=== PATIENT | male | born 1965 | race African-American/Black ===

== ENCOUNTER 2016-11-02 10:08 | Inpatient (IN) ==
--- NOTE | 2016-11-02 10:19 | Emergency Department Note ---
Disposition Clinical Impression: Stroke, TIA (transient ischemic attack) Disposition: Admitted As Inpatient Condition: Fair Neuro HPI - General Chief Complaint: ED Neuro Symptoms/Deficit Stated Complaint: l side weakness Time Seen by Provider: 11/02/16 10:09 Source: EMS Limitations: no limitations Nursing Notes Reviewed: Yes Vital Signs Reviewed: Yes - History of Present Illness HPI Narrative: Patient is a 51-year-old male with prior history of stroke/TIA with full resolution of deficits in the past. Patient transferred in from [facility]. Past history of hypertension COPD, and glaucoma. Patient states that prior to 45 minutes ago he was sitting down watching TV started Friday with no issues. Patient states he started experiencing heaviness in his left lower extremity followed by heaviness in his left upper extremity. Patient recognizes symptoms from his last stroke and notified staff. Patient is brought into the ED at 1010 hrs., stroke alert was called, patient sent down to CT at 1015 hrs. - Related Data Home Medications: Home Medications Medication Instructions Recorded Confirmed Brimonidine Tartrate [Alphagan P] 1 drop LEFT EYE BID 05/06/15 05/29/15 Folic Acid 2 mg PO QAM 05/06/15 05/29/15 GuaiFENesin Liq [Robitussin Liq] 10 ml PO TID PRN 05/06/15 05/29/15 Latanoprost [Xalatan] 1 drop BOTH EYES HS 05/06/15 05/29/15 Omeprazole [PriLOSEC] 20 mg PO QAM 05/06/15 05/29/15 Prazosin [Minipress] 2 mg PO HS 05/06/15 05/29/15 RisperiDONE [Risperdal] 2 mg PO HS 05/06/15 05/29/15 Thiamine (B-1) [Vitamin B-1] 100 mg PO QAM 05/06/15 05/29/15 Acetaminophen [Tylenol] 650 mg PO Q6HR PRN 05/29/15 05/29/15 Atorvastatin [Lipitor] 10 mg PO HS 05/29/15 05/29/15 Cyclobenzaprine [Flexeril] 10 mg PO HS PRN 05/29/15 05/29/15 Docusate Sodium [Colace] 100 mg PO DAILY 05/29/15 05/29/15 FLUoxetine HCl [Prozac] 40 mg PO DAILY 05/29/15 05/29/15 Previous Rx's Medication Instructions Recorded Clopidogrel [Plavix] 75 mg PO DAILY #60 tablet 05/11/15 Lisinopril [Zestril] 10 mg PO DAILY #30 tablet 05/11/15 Metoprolol [Lopressor] 25 mg PO BID #60 tablet 05/11/15 Rivaroxaban [Xarelto] 20 mg PO DAILY #30 tablet 05/25/15 Allergies/Adverse Reactions: Allergies Allergy/AdvReac Type Severity Reaction Status Date / Time No Known Allergies Allergy Verified 05/06/15 08:01 All systems ED: reviewed and negative except as stated. Constitutional: Reports: weakness. Denies: fever, chills Eyes: Denies: eye pain, vision change ENT ED: Denies: hearing loss, congestion, dysphagia Cardiovascular: Denies: chest pain, palpitations, syncope Respiratory: Denies: cough, dyspnea, wheezes Gastrointestinal: Denies: abdominal pain, nausea, vomiting, diarrhea Genitourinary: Denies: urgency, dysuria, frequency, hematuria Musculoskeletal: Denies: back pain, neck pain, joint swelling, arthralgia, myalgia Integumentary: Denies: rash, abrasion Neurological: Reports: weakness. Denies: headache Psychiatric: Denies: anxiety Endocrine: Denies: fatigue Past Medical History - Past Medical History Attestation: Yes The following information was validated with the patient. Source: patient Medical history: Reports: COPD, glaucoma, hypertension, seizures, TIA Surgical history: Reports: other (He reports he had a shoulder surgery at [facility] on his right shoulder, and some tooth extractions.) Psychiatric history: Reports: depression - Social History Smoking Status: Current some day smoker Smokeless Tobacco Status: No Alcohol use: Reports: heavy Drug use: Reports: none Physical Exam Vital Signs Temperature 98.6 F 11/02/16 10:10 Pulse Rate 78 11/02/16 10:10 Respiratory Rate 18 11/02/16 10:10 Blood Pressure 166/108 11/02/16 10:10 O2 Sat by Pulse Oximetry 96 11/02/16 10:10 Temperature 98.6 F 11/02/16 10:10 Pulse Rate 78 11/02/16 10:10 Respiratory Rate 18 11/02/16 10:10 Blood Pressure 166/108 11/02/16 10:10 O2 Sat by Pulse Oximetry 96 11/02/16 10:10 -General Appearance: Patient is a 51-year-old male who is alert and oriented 3 and a GCS of 15. Patient sitting up comfortable. Patient is nondiaphoretic. Patient has no obvious facial droop. Patient has a full smile -1010hrs:Neurological exam: Brief neuro exam performed. Patient has cranial nerves II through XII grossly intact with NIH score of 24 left sided pronator drift left upper extremity and weakness of the left lower extremity 4/5 compared to 5/5 on the right 1030 hrs.: Neurological exam cranial nerves II through XII intact, no facial droop, even smile, left-sided shoulder elevation slightly weaker at 4/5 compared to right 5/5, left upper extremity same shoulder 4/5 compared to 5/5 on the right. Analysis Consultant strength 4/5 compared to right side 5/5, patient reports equal sensation to palpation on right and left hemispheres his body. Left lower extremity strength 3-4/5 compared to right side 5/5. - Head Head exam: atraumatic, normocephalic, normal inspection - Eye Eye exam: Present: normal appearance, PERRL, EOMI, negative for scleral icterus negative for conjunctival pallor - ENT ENT exam: normal exam, normal oropharynx, mucous membranes moist - Neck Neck exam: Present: normal inspection, full ROM, trachea midline, negative JVD - Chest Chest inspection: Present: Patient has bilateral equal rise and fall of chest wall. Non-tender to palpation. - Respiratory Respiratory exam: Clear to auscultation bilaterally without wheezes rales or rhonchi Cardiovascular Cardiovascular exam: Present: regular rate, normal rhythm, normal heart sounds, without murmurs rubs or gallops. - Abdominal Exam Abdominal exam: Present: soft, nondistended, Non-Tender light and deep palpation in all quadrants. Bowel sounds normoactive throughout all 4 quadrants. Negative for hyper or hyperresonance. - Extremities Exam Extremities exam: Present: normal inspection, full ROM, pulses equal regular at radials, dorsal pedal and PTs - Back Exam Back exam: Present: normal inspection, full ROM. Absent: tenderness, CVA tenderness (R), CVA tenderness (L) - Psychiatric Psychiatric exam: Present: normal affect, normal mood - Skin Skin exam: Present: warm, dry, intact, normal color - General Limitations: no limitations General appearance: alert Course - Reevaluation(s) Reevaluation #1: Patient concerning for CVA, ischemic versus hemorrhagic stroke, stroke alert was called, patient sent and CT head noncontrast. Time: 10:10 Reevaluation #2: On reassessment patient has improved strength in his left upper extremity. Still has mild pronator drift. Left lower extremity still feels heavy and difficult to lift. Patient is able to hold it up for [address] shows: Per radiology IMPRESSION: 2 small areas of decreased spear-white differentiation in the right parietal lobe including in the right motor cortex, new since May 08, 2015, may be related to acute to subacute infarctions. Pansinusitis. Time: 10:30 Reevaluation #3: Patient states no change since last check. Currently having technical difficulties with trying to get the [facility] neurologists on the mobile video. Chest x-ray shows no acute abnormalities. Swallow eval performed at bedside. No deficits. Patient has received aspirin Time: 10:45 Additional Reevaluation(s): Patient states he has a frontal headache. Checking patient's LFTs secondary to history of alcoholism before administering Tylenol. 1221 hrs., patient has no elevations of his liver enzymes. Enzymes are checked because patient has a history of alcoholism. - Consultations Consultation #1: Dr. Sheila Mireles of neurology was evaluating the patient started at 1052 hrs. Assessments complete and the recommendation is to admit for MRI/MRA. No recommendations for TPA at this time secondary to patient's symptoms improving, patient has no pronator drift currently which he had earlier at initial presentation. Time: 11:02 Consultation #2: Dr. Conroy the hospitalist has accepted patient for admission Time: 11:20 Vital Signs Temperature 98.6 F 11/02/16 10:10 Pulse Rate 78 11/02/16 10:10 Respiratory Rate 18 11/02/16 10:10 Blood Pressure 166/108 11/02/16 10:10 O2 Sat by Pulse Oximetry 96 11/02/16 10:10 Temperature 97.7 F 11/02/16 15:16 Pulse Rate 80 11/02/16 15:16 Respiratory Rate 16 11/02/16 15:16 Blood Pressure 136/96 11/02/16 15:16 O2 Sat by Pulse Oximetry 100 11/02/16 15:16 Oxygen Delivery Oxygen Delivery Room Air Neuro Symptoms/Deficit - Medical Records Medical records reviewed: Yes I reviewed the patient's medical records. Prior admission back in 2014 describes history of prior stroke - Lab Data Lab results reviewed: Yes I reviewed the patient's lab results. Lab results narrative: Short CBC 11/02/16 Range/Units 10:20 WBC 5.5 (4.3-11.1) K/mcL Hgb 11.7 L (12.9-16.9) g/dL Hct 37.1 L (37.5-50.1) % Plt Count 490 H (140-400) K/mcL Neutrophils # 4.1 (1.6-8.9) K/mcL BMP 11/02/16 Range/Units 10:20 Sodium 138 (136-145) mEq/L Potassium 3.4 L (3.5-4.5) mEq/L Chloride 99 (98-109) mEq/L Carbon Dioxide 30 H (19-29) mEq/L BUN 6 L (8-26) mg/dL Creatinine 0.92 (0.72-1.25) mg/dL Glucose 77 (70-99) mg/dL Calcium 9.4 (8.6-10.8) mg/dL Cardiac Enzymes 11/02/16 Range/Units 10:20 Troponin I 0.01 (0-0.03) ng/mL Result diagrams: 11/02/16 10:20 11/02/16 10:20 - Radiology Data Radiology results reviewed: Yes I reviewed the patient's radiology results. Head CT 11/02/16 10:10 IMPRESSION: 2 small areas of decreased spear-white differentiation in the right parietal lobe including in the right motor cortex, new since May 08, 2015, may be related to acute to subacute infarctions. Pansinusitis. D/ / Rogerio Flores MD / Rogerio Flores MD Interpreting Provider: Rogerio Flores MD Chest X-Ray 11/02/16 10:15 IMPRESSION: Chronic appearing interstitial lung changes. No acute process. D/ / 11/02/2016 10:45:20 Osmel Kelley MD / [email or web address] Interpreting Provider: Osmel Kelley MD - EKG Data EKG attestation: Yes I reviewed and interpreted this EKG. EKG results narrative: EKG taken 11/02/2016 at 1128 hrs. shows sinus bradycardia at a rate of [address] segment morphology in V2 but is fairly similar to previous EKG taken in 05/06/2015 shows a first-degree AV block NIH Stroke Scale - Level of Consciousness LOC: Alert - LOC Questions LOC Questions: Answers both correctly - LOC Commands LOC Commands: Performs both correctly - Best Gaze Best Gaze: Normal - Visual Visual: No visual loss - Facial Palsy Facial Palsy: Normal - Motor Arms Motor Arm-Left: Drift, does NOT hit bed Motor Arm-Right: No drift for 10 seconds - Motor Legs Motor Leg-Left: Drift, does NOT hit bed Motor Leg-Right: No drift for 5 seconds - Limb Ataxia Limb Ataxia: Normal, No Ataxia - Sensory Sensory: Normal - Best Language Best Language: No aphasia - Dysarthria Dysarthria: Normal - Extinction and Inattention Extinction and Inattention: Normal - NIHSS Total Score NIHSS Total Score: 2 Attestation Statement - Attestation Attestation: I examined this patient and my medical decision-making was reviewed with the ADMINISTRATIVE SERVICES ASSISTANT/PA/Advanced Practice Nurse/Resident Physician. I agree with the documented findings, disposition and treatment plan as described except to the extent set forth below. 51-year-old male since the ED from the [facility] due to left-sided weakness. At 9:30 this morning he had abrupt onset of weakness of his left leg and left arm. No involvement of his face. He has similar presentation 2 years ago at the time of the CVA. He recovered from the previous CVA with no residual weakness. Denies any recent trauma. No palpitations. No history of arrhythmia. Well-appearing male who is awake alert. He has no facial asymmetry. There is slightly asymmetric weakness of his left leg currently left arm is symmetric to the right. No pronator drift. Scattered sensory deficits on the left arm and lateral aspect of the left leg. Face is symmetric. Speech is clear. CT was performed which shows some subacute to acute infarcts on the right parietal lobe. He was driving up a stroke neurologist [facility] do not feel that TPA was warranted. He is bedside swallowing evaluation was unremarkable and he was given aspirin. He states admitted for further workup. The high probability of a clinically significant, sudden or life threatening deterioration of the [NEUROVASCULAR] system(s) required my full and direct attention, intervention and personal management. The aggregate critical care time was [35] minutes. This time is in addition to time spent performing reported procedures but includes the following: [x] Data Review and interpretation [x] Patient assessment and monitoring of vital signs [x] Documentation [x] Medication orders and management
[2016-11-02 10:32] LABS: Basophils % 0.5 %; Eosinophils # 0.1 K/mcL (0.0-0.6); Eosinophils % 2.2 %; Hematocrit 37.1 % (37.5-50.1); Hemoglobin 11.7 g/dL (12.9-16.9); Immature Granulocytes % 0.5 % (0-4); Lymphocytes # 0.8 K/mcL (0.6-4.6); Lymphocytes % 15.2 %; Mean Corpuscular HGB Conc 31.5 g/dL (31.6-35.5); Mean Corpuscular Hemoglobin 26.7 pg (28.0-33.3); Mean Corpuscular Volume 84.5 fL (83.0-100.0); Mean Platelet Volume 8.9 fL (9.4-12.4); Monocytes # 0.5 K/mcL (0.0-1.3); Monocytes % 8.1 %; Neutrophils # 4.1 K/mcL (1.6-8.9); Red Blood Count 4.39 M/mcL (4.19-5.50); Red Cell Distribution Width 20.6 % (11.5-14.5); Segmented Neutrophils % 73.5 %
[2016-11-02 10:34] LABS: Platelet Count 490 K/mcL (140-400)
[2016-11-02 10:38] LABS: INR 1.1; Prothrombin Time 11.6 Seconds (9.4-12.1)
[2016-11-02 10:40] LABS: Activated Partial Thrombo Time 51.3 Seconds (26.0-36.0)
[2016-11-02 10:46] LABS: BUN/Creatinine Ratio 7 (6-26); Blood Urea Nitrogen 6 mg/dL (8-26); Calcium 9.4 mg/dL (8.6-10.8); Carbon Dioxide 30 mEq/L (19-29); Chloride 99 mEq/L (98-109); Glucose 77 mg/dL (70-99); Osmolality,Calculated 282 (280-300); Potassium 3.4 mEq/L (3.5-4.5); Sodium 138 mEq/L (136-145); eGFR For African Americans > 60 (> 60); eGFR For Non-African Americans > 60 (> 60)
--- NOTE | 2016-11-02 10:53 | Emergency Department Note ---
START Narrative - START START: Patient began at 9:30 swelling with abrupt onset of left-sided weakness. This began with this heaviness of his left leg and then evolved into his arm. No involvement of his face. He has CVA 2-3 years ago with similar initial presentation. According to the patient, he completely recovered from the previous event. No recent trauma. No change in medications. No current anticoagulants on his med list medications. Patient cannot give a detailed recollection of his current medications. He has intermittent pronator drift involving his left arm as well as asymmetric weakness of his left leg. He is able to break gravity with the left leg. Sensation is normal bilaterally. No facial asymmetry. 10:37 D/W [facility] stroke neurologist 10:50 Awaiting connection with [facility] neurologist 10:56 Neurologist now online evaluating patient
[2016-11-02] MEDS ORDERED: Acetaminophen 325 MG TABLET PO ONE (11:25)
[2016-11-02] MEDS ORDERED: Aspirin 81 MG TAB.CHEW PO ONE (11:40)
[2016-11-02 11:47] LABS: Alanine Aminotransferase 17 Units/L (0-55); Albumin 3.3 g/dL (3.5-5.0); Albumin/Globulin Ratio 0.7 (1.1-2.2); Alkaline Phosphatase 54 Units/L (38-126); Aspartate Amino Transferase 28 Units/L (5-34); Bilirubin,Direct 0.1 mg/dL (0.0-0.5); Bilirubin,Indirect 0.2 mg/dL (0.0-1.2); Bilirubin,Total 0.3 mg/dL (0.2-1.2); Globulin 4.6 g/dL (2.4-3.5); Total Protein 7.9 g/dL (6.0-8.3)
--- NOTE | 2016-11-02 12:41 | Internal Med History&Physical ---
Date of Encounter: 11/02/16 Time of Encounter: 12:41 Assessment and Plan (1) Seizures Current visit: Yes Status: Acute unclear history may be related to alcohol (2) COPD (chronic obstructive pulmonary disease) Current visit: Yes Status: Chronic no active wheezing Qualifiers: COPD type: emphysema Emphysema type: unspecified Qualified Code(s): J43.9 - Emphysema, unspecified (3) Right hemisphere, cerebral infarction Current visit: Yes Status: Acute similar presentation 2014 [facility] called not a candidate for acute intervention will consult neurology and obtain mri of head cholesterol was ok last admission 2014 (4) Ethanolism Current visit: Yes Status: Chronic receiving rehab treatment says has been clean for 2 months (5) Hypertension Current visit: Yes Status: Chronic uncontrolled and possible contribution to cva/tia will incarese lisinopril dose Qualifiers: Hypertension type: essential hypertension Qualified Code(s): I10 - Essential (primary) hypertension (6) PTSD (post-traumatic stress disorder) Current visit: Yes Status: Chronic chronic (7) Tobacco abuse Current visit: Yes Status: Chronic chronic Internal Medicine - H&P: HPI Chief complaint: left sided weakness and numbness Admitted From: Emergency Dept Plans for Post Hospital Care: Home History of present illness: Mr. Bernal is a 51 year old male Patient with history of alcohol abuse, patient at [facility] for rehabilitation, he said he has been clean from alcoholism for about 2 months, patient also history of COPD, hypertension, admitted here 2014 with a CVA of right hemispheric CVA was seen by the neurology underwent YAKELIN at that time which was no source of cardiac emboli patient presented emergency room from [facility] apparently developed left- sided weakness of the left leg and sensation of leg heaviness and then also right arm involvement to weakness and no headache , no chest pain sent to ER emergency room symptoms beginning to resolve but not completely admitted now for neurologic evaluation. CT of the head was abnormal showing acute. parietal lobe and right motor cortex infarct which is new compared to previous studies are 2015 patient in sinus rhythm Past Med Surg Social Fam HX - Past Medical History Medical history: COPD, glaucoma, hypertension, seizures, TIA Psychiatric history: depression - Past Surgical History Surgical History: other (He reports he had a shoulder surgery at [facility] on his right shoulder, and some tooth extractions.) - Social History Smoking Status: Current some day smoker Smokeless Tobacco Status: No Alcohol use: heavy Drug use: none Internal Medicine - H&P: Meds Brimonidine Tartrate [Alphagan P] 1 drop LEFT EYE BID 05/06/15 [History] Folic Acid 2 mg PO QAM 05/06/15 [History] GuaiFENesin Liq [Robitussin Liq] 10 ml PO TID PRN 05/06/15 [History] Latanoprost [Xalatan] 1 drop BOTH EYES HS 05/06/15 [History] Omeprazole [PriLOSEC] 20 mg PO QAM 05/06/15 [History] Prazosin [Minipress] 2 mg PO HS 05/06/15 [History] RisperiDONE [Risperdal] 2 mg PO HS 05/06/15 [History] Thiamine (B-1) [Vitamin B-1] 100 mg PO QAM 05/06/15 [History] Clopidogrel [Plavix] 75 mg PO DAILY #60 tablet 05/11/15 [Rx] Lisinopril [Zestril] 10 mg PO DAILY #30 tablet 05/11/15 [Rx] Metoprolol [Lopressor] 25 mg PO BID #60 tablet 05/11/15 [Rx] Rivaroxaban [Xarelto] 20 mg PO DAILY #30 tablet 05/25/15 [Rx] Acetaminophen [Tylenol] 650 mg PO Q6HR PRN 05/29/15 [History] Atorvastatin [Lipitor] 10 mg PO HS 05/29/15 [History] Cyclobenzaprine [Flexeril] 10 mg PO HS PRN 05/29/15 [History] Docusate Sodium [Colace] 100 mg PO DAILY 05/29/15 [History] FLUoxetine HCl [Prozac] 40 mg PO DAILY 05/29/15 [History] Allergies No Known Allergies Allergy (Verified 05/06/15 08:01) All Systems PM: A 10-system review of systems was performed and is negative for pertinent findings except as documented above in the HPI. - Constitutional Constitutional: no chills, no fever(s), no night sweats - EENT Eyes: no change in vision, no discharge, no pain, no photophobia Ears: no ear discharge, no ear pain, no tinnitus Nose, mouth and throat: no dysphagia, no nasal discharge, no neck pain, no sore throat - Cardiovascular Cardiovascular ROS IM: no chest pain, no diaphoresis, no dyspnea, no lightheadedness, no palpitations, no syncope - Respiratory Respiratory: no cough, no dyspnea, no wheezing, no excessive phlegm production - Gastrointestinal Gastrointestinal: no abdominal pain, no diarrhea, no hematemesis, no hematochezia, no melena, no nausea, no vomiting - Musculoskeletal Musculoskeletal ROS IM: no numbness, no tingling - Integumentary Integumentary IM: no rash, no unusual bruising - Neurological Neurological ROS: focal weakness, weakness - Hematologic/Lymphatic Hematologic/Lymphatic: no easy bruising - Constitutional Vitals: Temp Pulse Resp BP Pulse Ox 98.6 F 64 18 168/114 100 11/02/16 10:10 11/02/16 11:26 11/02/16 12:01 11/02/16 12:01 11/02/16 11:26 - Head Head exam: Present: atraumatic, normocephalic - Eye Eye exam: Present: PERRL, conjuntiva pink, sclera anicteric Pupils: Present: PERRL - Neck Neck exam general surgery: Present: supple, trachea midline. Absent: lymphadenopathy - Respiratory Respiratory exam: Present: CTAB. Absent: accessory muscle use, rales, rhonchi, wheezes - Cardiovascular Cardiovascular exam: Present: RRR, +S1, +S2. Absent: diastolic murmur, gallop, rubs, systolic murmur - GI/Abdominal GI/Abdominal exam: Present: normal bowel sounds, soft, no peritoneal signs. Absent: distended, tenderness - Extremities Exam Extremities exam: Present: warm, radial pulses palpable and symetrical. Absent : calf tenderness, cyanotic, pedal edema - Neurological Exam Neurological exam: Present: motor sensory deficit Internal Med - H&P Results - Labs CBC & Chem 7: 11/02/16 10:20 11/02/16 10:20
[2016-11-02] MEDS ORDERED: Naloxone 0.4 MG/ML INJ IVP PRN (12:59)
[2016-11-02] MEDS ORDERED: *HR* Morphine 2 MG/ML SYRINGE IVP PRN (12:59)
[2016-11-02] MEDS ORDERED: MOM Conc 10 ML UD.LIQ PO PRN (12:59)
[2016-11-02] MEDS ORDERED: Acetaminophen 325 MG TABLET PO PRN (13:03)
--- NOTE | 2016-11-02 17:14 | Neurology - Consult Note ---
Date of Encounter: 11/02/16 Time of Encounter: 17:09 Assessment and Plan (1) TIA (transient ischemic attack) Current Visit: Yes Status: Acute Patient with PMH significant for HTN, previous CVA who developed left sided paresthesia and weakness lasting few hours in duration with rapid resolution. MRI of brain reviewed and showed no acute intracranial abnormality and no evidence of new stroke. Clinical diagnosis would be TIA. Patient has had YAKELIN in the past when he developed stroke 3 years ago which was negative. CTA of head shows normal study therefore i would simply repeat carotid artery duplex. He is already on Xarelto, plavix and aspirin triple therapy and not much to add for the treatment of TIA. He is back to baseline and PT does not appear necessary. Continue statin therapy for hyperlipidemia. Will order carotid artery duplex. if returns negative. Patient can be discharged and follow up with PCP at [place] [facility]. Thank you very much for the consultation Qualifiers: Transient cerebral ischemia type: unspecified Qualified Code(s): G45.9 - Transient cerebral ischemic attack, unspecified History of Present Illness Chief complaint: left sided paresthesia HPI: Mr. 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 seizure disorder, COPD, On xarelto (? indication) who developed transient left sided paresthesia weakness, which rapidly improved. Symptoms occurred at around 1O am and the patient was initially evaluated in the ER and CT of head was negative acute infarct. patient was evaluated by stroke telemedicine team at [facility] who recommended no tPA since symptoms were rapidly improving. Patient admitted onto medical floor for further testing. Had cerebral infarct durin 04/2015 and MRI of brain at the time showed "few foci of acute infarction in the right parietal, occipital, and posterior temporal lobes. This is in the vascular territory of the right posterior cerebral artery'. Eventually neurological symptoms all resolved. By the time he came back from testing, he tells me that since the last 3 months he has been feeling on and off, left sided numbness, without weakness. At this time, he is 100% back to normal. MRI of brain without contrast showed no acute changes. CT/CT angio head wo/w con IMPRESSION: Unremarkable CTA of the head. patient already taking xarelto, plavix and aspirin. He does not know why he is taking zarelto. [facility] and no [facility] available for review her at [facility]. Past Med Surg Social Fam HX - Past Medical History Medical history: COPD, glaucoma, hypertension, seizures, TIA Psychiatric history: depression - Past Surgical History Surgical History: other - Social History Smoking Status: Current some day smoker Smokeless Tobacco Status: No Alcohol use: heavy Drug use: none Medications and Allergies Brimonidine Tartrate [Alphagan P] 1 drop LEFT EYE BID 05/06/15 [History] Latanoprost [Xalatan] 1 drop BOTH EYES HS 05/06/15 [History] Acetaminophen [Tylenol] 650 mg PO BID PRN 05/29/15 [History] Docusate Sodium [Colace] 200 mg PO BID 05/29/15 [History] FLUoxetine HCl [Prozac] 20 mg PO DAILY 05/29/15 [History] Albuterol Sulfate [Proair Hfa] 2 puff IH QID PRN 11/02/16 [History] Aspirin [Lo-Dose Aspirin EC] 81 mg PO DAILY 11/02/16 [History] Calcium Carbonate/Vitamin D3 [Calcium 600 + Vit D Tablet] 1 tab PO BID 11/02/16 [History] Ferrous Sulfate [Iron] 325 mg PO BID 11/02/16 [History] Fluticasone Propionate Nasal [Flonase] 100 mcg NS HS 11/02/16 [History] Loratadine [Allergy Relief] 10 mg PO DAILY 11/02/16 [History] Melatonin/Pyridoxine HCl (B6) [Melatonin 1 mg Tablet] 12 mg PO HS 11/02/16 [ History] Naproxen [EC-Naprosyn] 500 mg PO BID 11/02/16 [History] Polyvinyl Alcohol/Povidone/Pf [Refresh Classic Eye Drops] 1 drop OP QID PRN [History] PredniSONE 10 mg PO DAILY 11/02/16 [History] Pseudoephedrine [Sudafed] 60 mg PO BID 11/02/16 [History] RisperiDONE [Risperdal] 0.5 mg PO BID 11/02/16 [History] Trazodone HCl 50 mg PO HS 11/02/16 [History] Allergies No Known Allergies Allergy (Verified 05/06/15 08:01) All Systems: A 10-system review of systems was performed and is negative for pertinent findings except as documented above in the HPI. Physical Examination - Vital Signs Vital Signs: Initial Vital Signs Temp Pulse Resp BP Pulse Ox 98.6 F 78 18 166/108 96 11/02/16 10:10 11/02/16 10:10 11/02/16 10:10 11/02/16 10:10 11/02/16 10:10 - Constitutional General appearance: comfortable - Neurologic Sensorimotor examination: intact Detailed motor examination: grossly full strength in all extremities Motor examination - right side: 5/5: deltoids, biceps, triceps, wrist flexion, wrist extension, fruit sprayer, hip flexors, tibialis Anterior, quadriceps, toe extension (EHL), plantarflexion Motor examination - left side: 5/5: deltoids, biceps, triceps, wrist flexion, wrist extension, hip flexors, fruit sprayer, quadriceps, tibialis Anterior, toe extension (EHL), plantarflexion Detailed sensory examination: intact Reflex and gait examination: intact Reflexes: Biceps: 1+, Triceps: 1+, Brachioradialis: 1+, Patella: 1+, Achilles: 1 + Mental Status Examination: awake, alert, oriented to person, oriented to place, oriented to time, follows commands appropriately, answers questions appropriately, no agnosia, no aphasia, no aproxia Cranial nerve examination: PERRL, EOMI, visual marc intact, corneal reflexes brisk symmetrically, sensory to face intact, mastication intact, no facial asymmetry is present, no dysarthria, hearing is intact symmetrically, soft palate elevates bilaterally upon phonation, gag reflex intact, flexes SCM and trapezius muscles symmetrically with full power, tongue protrudes midline, no atrophy or facial fasiculations present Cerebellar examination: no dysmetria, performs finger to nose and heel to healy symmetrically without ataxia, no gait ataxia, no truncal ataxia, no difficulty with rapid alternating movements Results - Laboratory Findings CBC and BMP: 11/02/16 10:20 11/02/16 10:20 Abnormal lab findings: Abnormal lab results Hgb 11.7 g/dL (12.9-16.9) L 11/02/16 10:20 Hct 37.1 % (37.5-50.1) L 11/02/16 10:20 MCH 26.7 pg (28.0-33.3) L 11/02/16 10:20 MCHC 31.5 g/dL (31.6-35.5) L 11/02/16 10:20 RDW 20.6 % (11.5-14.5) H 11/02/16 10:20 Plt Count 490 K/mcL (140-400) H 11/02/16 10:20 MPV 8.9 fL (9.4-12.4) L 11/02/16 10:20 APTT 51.3 Seconds (26.0-36.0) H 11/02/16 10:20 Potassium 3.4 mEq/L (3.5-4.5) L 11/02/16 10:20 Carbon Dioxide 30 mEq/L (19-29) H 11/02/16 10:20 BUN 6 mg/dL (8-26) L 11/02/16 10:20 POC Glucose 54 (58-89) L 11/02/16 12:42 Albumin 3.3 g/dL (3.5-5.0) L 11/02/16 10:20 Globulin 4.6 g/dL (2.4-3.5) H 11/02/16 10:20 Albumin/Globulin Ratio 0.7 (1.1-2.2) L 11/02/16 10:20 Consult Discharge Plan - Plan [facility]errals: [facility] [Primary Care Provider] -
[2016-11-02] MEDS: Latanoprost 2.5 ML BOTTLE BOTH EYES SCH (20:09)
[2016-11-03 05:23] LABS: Basophils # 0.1 K/mcL (0.0-0.2); Basophils % 0.9 %; Eosinophils # 0.4 K/mcL (0.0-0.6); Eosinophils % 7.7 %; Hematocrit 32.3 % (37.5-50.1); Hemoglobin 10.3 g/dL (12.9-16.9); Immature Granulocytes % 0.5 % (0-4); Lymphocytes # 1.6 K/mcL (0.6-4.6); Lymphocytes % 28.9 %; Mean Corpuscular HGB Conc 31.9 g/dL (31.6-35.5); Mean Corpuscular Hemoglobin 26.3 pg (28.0-33.3); Mean Corpuscular Volume 82.6 fL (83.0-100.0); Mean Platelet Volume 8.9 fL (9.4-12.4); Monocytes # 0.6 K/mcL (0.0-1.3); Platelet Count 430 K/mcL (140-400); Red Blood Count 3.91 M/mcL (4.19-5.50); Red Cell Distribution Width 20.5 % (11.5-14.5)
[2016-11-03 05:25] LABS: Neutrophils # 2.9 K/mcL (1.6-8.9)
[2016-11-03 05:40] LABS: Alanine Aminotransferase 11 Units/L (0-55); Albumin/Globulin Ratio 0.7 (1.1-2.2); Alkaline Phosphatase 44 Units/L (38-126); Aspartate Amino Transferase 19 Units/L (5-34); BUN/Creatinine Ratio 11 (6-26); Bilirubin,Total 0.2 mg/dL (0.2-1.2); Blood Urea Nitrogen 10 mg/dL (8-26); Calcium 8.7 mg/dL (8.6-10.8); Carbon Dioxide 28 mEq/L (19-29); Chloride 105 mEq/L (98-109); Chol/HDL Ratio 2.8 (0-4.9); Cholesterol 150 mg/dL (< 200); Globulin 3.8 g/dL (2.4-3.5); Glucose 76 mg/dL (70-99); HDL Cholesterol 54 mg/dL (40-59); LDL Cholesterol,Calculated 84 mg/dL (0-99); Magnesium 1.7 mg/dL (1.6-2.6); Osmolality,Calculated 290 (280-300); Potassium 3.2 mEq/L (3.5-4.5); Sodium 141 mEq/L (136-145); Triglycerides 60 mg/dL (< 150); eGFR For African Americans > 60 (> 60); eGFR For Non-African Americans > 60 (> 60)
[2016-11-03 05:41] LABS: Albumin 2.5 g/dL (3.5-5.0); Total Protein 6.3 g/dL (6.0-8.3)
[2016-11-03] MEDS ORDERED: *HR* Enoxaparin 40 MG/0.4 ML SYRINGE SQ SCH (06:00)
[2016-11-03 06:10] LABS: Anisocytosis 1+ (Not Present); Hypochromasia Present (Not Present); Microcytosis Present (Not Present); Platelet Estimate Increased (Normal)
[2016-11-03] MEDS: *HR* Rivaroxaban 10 MG TABLET PO SCH (09:20)
[2016-11-03] MEDS: FLUoxetine 20 MG CAPSULE PO SCH (09:20)
[2016-11-03] MEDS: Folic Acid 1 MG TABLET PO SCH (09:20)
[2016-11-03] MEDS: Thiamine (B-1) 100 MG TABLET PO SCH (09:21)
--- NOTE | 2016-11-03 15:46 | ECHO - Doppler Report ---
Echocardiogram Name: Hossein Bernal Date of Study: 11/03/2016 Date: 1965 Ht: 74.0 in Medical Record#: [id number] Age: 51 Wt: 183.0 lb Gender: Male BSA: 2.09 Order #: [id number] Location: [facility] Room #: 2NE32 Reading Physician: Portillo Pandya MD, [facility] Branch Lending Officer: Gisselle Whaley Ordering Physician: Reji Fernando MD Primary Physician: [facility] Indications: CVA Impressions: Normal LV systolic function, LVEF 60%. Moderate left ventricular diastolic dysfunction. Normal right ventricular size and function. Moderately dilated left atrium. No significant valvular dysfunction. Unable to estimate RVSP due to lack of TR jet. Left Ventricular Wall Motion: Rest Echo Findings All wall segments showed normal motion. Findings: Study Quality * Technically adequate exam. ECG Findings * Normal sinus rhythm. Left Ventricle * Normal LV systolic function, LVEF 60%. * Normal LV chamber size and wall thickness. * Moderate left ventricular diastolic dysfunction. Right Ventricle * Normal right ventricular size and function. Left Atrium * Moderately dilated left atrium. Right Atrium * Normal right atrial size. Aorta * Normally sized aortic root. Pericardium * There is no pericardial effusion present. IVC * The IVC is not well evaluated. Aortic Valve * Trileaflet aortic valve. * No aortic stenosis. * No aortic regurgitation. Mitral Valve * Normal mitral valve structure. * No mitral stenosis. * Trace mitral regurgitation. Tricuspid Valve * Normal tricuspid valve structure. * No tricuspid stenosis. * Trace tricuspid regurgitation. * Unable to estimate RVSP due to lack of TR jet. Pulmonic Valve * Pulmonic valve not well visualized. * No pulmonic stenosis. * No pulmonic regurgitation. History Hypertension History of Smoking Years 4 Packs 0.5 05/08/2015 a Previous Echo was performed. Measurements: BP: 123/ 76 2D Normal Values RVIDd: 3.00 cm IVSd: 1.00 cm 0.6 - 1.0 cm LVIDd: 4.70 cm 3.7 - 5.6 cm LVPWd: 1.00 cm 0.6 - 1.1 cm LVIDs: 3.20 cm 1.5 - 3.6 cm AO: 2.90 cm < 4.0 cm LA volume: 80 Mitral Valve Peak E:.78 m/sec Peak A:.65 m/sec E/A Ratio:1.2 Peak E' Lat Ronald:9.26 cm/s Peak E' Med Ronald:5.65 cm/s E/E' Lat Ratio:8.4 E/E' Med Ratio:13.7 Updated by Portillo Pandya MD, [facility] on 11/03/2016 3:41:03 PM electronically signed on 11/03/2016 3:41:43 PM with status of Final Wall Motion Ruiz: 1=Normal, 2=Hypokinesis, 3=Akinesis, 4=Dyskinesis, 5=Aneurysmal, 6=Hyperkinetic, X=Not Visualized (Blank)=Missing
--- NOTE | 2016-11-03 16:52 | Internal Med Progress Note ---
Date of Encounter: 11/03/16 Time of Encounter: 16:50 - Assessment and plan (1) TIA (transient ischemic attack) Current Visit: Yes Status: Acute Assessment and plan: Admitted with symptoms of TIA. Extensive investigations were done. No positive outcome. Patient is on appropriate anticoagulation. Plan: Will continue same treatment. Neurology on the board and we will follow the recommendation Qualifiers: Transient cerebral ischemia type: unspecified Qualified Code(s): G45.9 - Transient cerebral ischemic attack, unspecified (2) COPD (chronic obstructive pulmonary disease) Current Visit: Yes Status: Chronic Assessment and plan: Patient is known to have a chronic obstructive pulmonary disease. At this point his COPD is stable. We will continue the same medication. Qualifiers: COPD type: emphysema Emphysema type: unspecified Qualified Code(s): J43.9 - Emphysema, unspecified (3) Hypertension Current Visit: Yes Status: Chronic Assessment and plan: Blood pressure is essentially within normal limit. We will continue same treatment Qualifiers: Hypertension type: essential hypertension Qualified Code(s): I10 - Essential (primary) hypertension (4) Tobacco abuse Current Visit: Yes Status: Chronic Assessment and plan: Discussed at length regarding discontinuation of tobacco. Patient promises that he will discontinue tobacco usage - Subjective Interval history: Patient seen and examined. Chart reviewed. Patient denies any chest pain, shortness of breath, weakness, abdominal pain or diarrhea. - Constitutional Vitals: Temp Pulse Resp BP Pulse Ox 98.1 F 69 18 138/111 94 11/03/16 15:45 11/03/16 15:45 11/03/16 15:45 11/03/16 15:45 11/03/16 15:45 General appearance: Present: A&O X 3, pleasant, no acute distress, answers questions appropriately - Head Head exam: Present: atraumatic, normocephalic - Eye Eye exam: Present: PERRL, conjuntiva pink, sclera anicteric Pupils: Present: PERRL - Neck Neck exam general surgery: Present: supple, trachea midline. Absent: lymphadenopathy - Respiratory Respiratory exam: Present: CTAB. Absent: accessory muscle use, rales, rhonchi, wheezes - Cardiovascular Cardiovascular exam: Present: RRR, +S1, +S2. Absent: diastolic murmur, gallop, rubs, systolic murmur - GI/Abdominal GI/Abdominal exam: Present: normal bowel sounds, soft, no peritoneal signs. Absent: distended, tenderness - Extremities Exam Extremities exam: Present: warm, radial pulses palpable and symetrical. Absent : calf tenderness, cyanotic, pedal edema - Neurological Exam Neurological exam: Present: CN II-XII intact, oriented X3, no focal deficits. Absent: pronater drift, facial droop, speech deficit - Skin Skin exam: Present: dry, intact Internal Medicine: Result - Labs CBC & Chem 7: 11/03/16 05:11 11/03/16 05:11 Labs: Short CBC 11/03/16 Range/Units 05:11 WBC 5.6 (4.3-11.1) K/mcL Hgb 10.3 L (12.9-16.9) g/dL Hct 32.3 L (37.5-50.1) % Plt Count 430 H (140-400) K/mcL Neutrophils # 2.9 (1.6-8.9) K/mcL BMP 11/03/16 05:11 Sodium 141 Potassium 3.2 L Chloride 105 Carbon Dioxide 28 BUN 10 Creatinine 0.94 Glucose 76 Calcium 8.7 Cardiac Enzymes 11/02/16 11/02/16 11/03/16 Range/Units 17:37 22:07 05:11 Troponin I 0.00 0.00 0.01 (0-0.03) ng/mL Liver Function 11/03/16 Range/Units 05:11 Total Bilirubin 0.2 (0.2-1.2) mg/dL AST 19 (5-34) Units/L ALT 11 (0-55) Units/L Alkaline Phosphatase 44 (38-126) Units/L Albumin 2.5 L D (3.5-5.0) g/dL - ABG Interpretation ABG results: PT/INR, D-dimer PT 11.6 Seconds (9.4-12.1) 11/02/16 10:20 - Impressions Impressions Brain MRI 11/02/16 13:05 IMPRESSION: No acute infarct. D/ / Basim Zhou MD / Basim Zhou MD Interpreting Provider: Basim Zhou MD Consult Discharge Plan - Plan [facility]errals: [facility] [Primary Care Provider] -
--- NOTE | 2016-11-03 17:52 | Electrocardiograph Report ---
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
[2016-11-03] MEDS: Latanoprost 2.5 ML BOTTLE BOTH EYES SCH (21:56)
[2016-11-04 07:48] VITALS: BP 139/79
[2016-11-04] MEDS: Folic Acid 1 MG TABLET PO SCH (09:12)
[2016-11-04] MEDS: FLUoxetine 20 MG CAPSULE PO SCH (09:13)
[2016-11-04] MEDS: Thiamine (B-1) 100 MG TABLET PO SCH (09:13)
[2016-11-04] MEDS: *HR* Rivaroxaban 10 MG TABLET PO SCH (09:13)
--- NOTE | 2016-11-04 10:11 | Discharge Summary ---
Date of Encounter: 11/04/16 Time of Encounter: 09:57 - Discharge Diagnosis (1) TIA (transient ischemic attack) Priority: Primary Status: Acute Qualifiers: Transient cerebral ischemia type: unspecified Qualified Code(s): G45.9 - Transient cerebral ischemic attack, unspecified (2) COPD (chronic obstructive pulmonary disease) Priority: Secondary Status: Chronic Qualifiers: COPD type: emphysema Emphysema type: unspecified Qualified Code(s): J43.9 - Emphysema, unspecified (3) Hypertension Priority: Secondary Status: Chronic Qualifiers: Hypertension type: essential hypertension Qualified Code(s): I10 - Essential (primary) hypertension (4) Tobacco abuse Priority: Secondary Status: Chronic - Discharge Medications Prescriptions: Atorvastatin [Lipitor] 10 mg PO HS #30 tablet Clopidogrel [Plavix] 75 mg PO DAILY #30 tablet Lisinopril [Zestril] 20 mg PO DAILY #30 tablet Metoprolol [Lopressor] 25 mg PO BID #30 tablet Prazosin [Minipress] 2 mg PO HS #30 capsule Rivaroxaban [Xarelto] 20 mg PO DAILY #30 tablet Thiamine (B-1) [Vitamin B-1] 100 mg PO QAM #30 tablet Home Medications: Brimonidine Tartrate [Alphagan P] 1 drop LEFT EYE BID 05/06/15 [History] Latanoprost [Xalatan] 1 drop BOTH EYES HS 05/06/15 [History] Acetaminophen [Tylenol] 650 mg PO BID PRN 05/29/15 [History] Docusate Sodium [Colace] 200 mg PO BID 05/29/15 [History] FLUoxetine HCl [Prozac] 20 mg PO DAILY 05/29/15 [History] Albuterol Sulfate [Proair Hfa] 2 puff IH QID PRN 11/02/16 [History] Aspirin [Lo-Dose Aspirin EC] 81 mg PO DAILY 11/02/16 [History] Calcium Carbonate/Vitamin D3 [Calcium 600 + Vit D Tablet] 1 tab PO BID 11/02/16 [History] Ferrous Sulfate [Iron] 325 mg PO BID 11/02/16 [History] Fluticasone Propionate Nasal [Flonase] 100 mcg NS HS 11/02/16 [History] Loratadine [Allergy Relief] 10 mg PO DAILY 11/02/16 [History] Melatonin/Pyridoxine HCl (B6) [Melatonin 1 mg Tablet] 12 mg PO HS 11/02/16 [ History] Naproxen [EC-Naprosyn] 500 mg PO BID 11/02/16 [History] Polyvinyl Alcohol/Povidone/Pf [Refresh Classic Eye Drops] 1 drop OP QID PRN [History] PredniSONE 10 mg PO DAILY 11/02/16 [History] Pseudoephedrine [Sudafed] 60 mg PO BID 11/02/16 [History] RisperiDONE [Risperdal] 0.5 mg PO BID 11/02/16 [History] Trazodone HCl 50 mg PO HS 11/02/16 [History] Atorvastatin [Lipitor] 10 mg PO HS #30 tablet 11/04/16 [Rx] Clopidogrel [Plavix] 75 mg PO DAILY #30 tablet 11/04/16 [Rx] Lisinopril [Zestril] 20 mg PO DAILY #30 tablet 11/04/16 [Rx] Metoprolol [Lopressor] 25 mg PO BID #30 tablet 11/04/16 [Rx] Prazosin [Minipress] 2 mg PO HS #30 capsule 11/04/16 [Rx] Rivaroxaban [Xarelto] 20 mg PO DAILY #30 tablet 11/04/16 [Rx] Thiamine (B-1) [Vitamin B-1] 100 mg PO QAM #30 tablet 11/04/16 [Rx] Allergies/Adverse Reactions: Allergies No Known Allergies Allergy (Verified 05/06/15 08:01) Procedures/tests Complete & Pending: Procedures Performed prior 72 hours Category Date Time Status CT angio head wo/w con [CT] Routine Cat Scan 11/02/16 13:06 Completed MR head/brain wo con [MR] Routine MRI 11/02/16 13:05 Completed EV echocardiogram Routine Y 11/03/16 13:07 Completed Date of admission: 11/02/16 12:59 [facility] care physician[facility] Consults: 11/04/16 09:13 Consult to Health And Social Care Teacher [CONS] Routine Reason for SW Consult: PT/OT rec swing bed Discharging clinician: Alfredo Delgado - Patient Status Disposition: Transfer Inpatient Rehab Fac Condition: Fair Functional capacity at discharge: uses cane/walker Overall status at discharge: patient is progressing back to baseline - Discharge Instructions Follow Up With: [facility] [Primary Care Provider[facility] - Shari Ibarra MD [Partnered Physician] - - Diet and Activity Activity: as per physical therapy, increase activity as tolerated Diet: low fat, low cholesterol, low salt diet Interval History: Patient with history of alcohol abuse, patient at [place] [facility] for rehabilitation, he said he has been clean from alcoholism for about 2 months, patient also history of COPD, hypertension, admitted here 2014 with a CVA of right hemispheric CVA was seen by the neurology underwent YAKELIN at that time which was no source of cardiac emboli patient presented emergency room from [place] [facility] apparently developed left- sided weakness of the left leg and sensation of leg heaviness and then also right arm involvement to weakness and no headache , no chest pain sent to ER emergency room symptoms beginning to resolve but not completely admitted now for neurologic evaluation. CT of the head was abnormal showing acute. parietal lobe and right motor cortex infarct which is new compared to previous studies are 2015 patient in sinus rhythm Hospital course: Patient was hospitalized. He was evaluated by neurology. Extensive workup/ investigations were done. There were no evidence of any stroke/TIA. Plan Patient can go back to the inpatient rehabilitation in [place]. Informed medical social worker about. Patient will go home on aspirin/statin. Patient is taking Plavix/Xarelto as his home medication. We will resume all his home medication. Even though I am giving scripts the patient for following medication, these were his home medications. Lipitor, Plavix, lisinopril, metoprolol,Xarelto, thiamine and prazosin. Ultrasound carotid was done. At the time of discharge the report is still pending. Patient can follow up with his primary care provider who can address this issue as outpatient. We will appointment with neurology for follow-up The time of discharge all questions answered. Patient does not have any questions, concerns, update or recommendations - Time Spent with Patient Total time spent providing and/or coordinating discharge services: - Constitutional Vitals: Temp Pulse Resp BP Pulse Ox 98.1 F 71 17 139/79 97 11/04/16 07:00 11/04/16 07:00 11/04/16 07:00 11/04/16 07:00 11/04/16 07:00 General appearance: Present: A&O X 3, pleasant, no acute distress, answers questions appropriately - Head Head exam: Present: atraumatic, normocephalic - Eye Eye exam: Present: PERRL, conjuntiva pink, sclera anicteric Pupils: Present: PERRL - Neck Neck exam general surgery: Present: supple, trachea midline. Absent: lymphadenopathy - Respiratory Respiratory exam: Present: CTAB. Absent: accessory muscle use, rales, rhonchi, wheezes - Cardiovascular Cardiovascular exam: Present: RRR, +S1, +S2. Absent: diastolic murmur, gallop, rubs, systolic murmur - GI/Abdominal GI/Abdominal exam: Present: normal bowel sounds, soft, no peritoneal signs. Absent: distended, tenderness - Extremities Exam Extremities exam: Present: warm, radial pulses palpable and symetrical. Absent : calf tenderness, cyanotic, pedal edema - Neurological Exam Neurological exam: Present: CN II-XII intact, oriented X3, no focal deficits. Absent: pronater drift, facial droop, speech deficit - Skin Skin exam: Present: dry, intact
--- NOTE | 2016-11-04 10:24 | Physician Discharge Referral ---
[facility] Referral Info Transfer To: Inpatient rehab - Diagnosis (1) TIA (transient ischemic attack) Priority: Primary Status: Acute (2) COPD (chronic obstructive pulmonary disease) Priority: Secondary Status: Chronic (3) Hypertension Priority: Secondary Status: Chronic (4) Tobacco abuse Priority: Secondary Status: Chronic - Transfer Medications Prescriptions: Atorvastatin [Lipitor] 10 mg PO HS #30 tablet Clopidogrel [Plavix] 75 mg PO DAILY #30 tablet Lisinopril [Zestril] 20 mg PO DAILY #30 tablet Metoprolol [Lopressor] 25 mg PO BID #30 tablet Prazosin [Minipress] 2 mg PO HS #30 capsule Rivaroxaban [Xarelto] 20 mg PO DAILY #30 tablet Thiamine (B-1) [Vitamin B-1] 100 mg PO QAM #30 tablet Home Medications: Brimonidine Tartrate [Alphagan P] 1 drop LEFT EYE BID 05/06/15 [History] Latanoprost [Xalatan] 1 drop BOTH EYES HS 05/06/15 [History] Acetaminophen [Tylenol] 650 mg PO BID PRN 05/29/15 [History] Docusate Sodium [Colace] 200 mg PO BID 05/29/15 [History] FLUoxetine HCl [Prozac] 20 mg PO DAILY 05/29/15 [History] Albuterol Sulfate [Proair Hfa] 2 puff IH QID PRN 11/02/16 [History] Aspirin [Lo-Dose Aspirin EC] 81 mg PO DAILY 11/02/16 [History] Calcium Carbonate/Vitamin D3 [Calcium 600 + Vit D Tablet] 1 tab PO BID 11/02/16 [History] Ferrous Sulfate [Iron] 325 mg PO BID 11/02/16 [History] Fluticasone Propionate Nasal [Flonase] 100 mcg NS HS 11/02/16 [History] Loratadine [Allergy Relief] 10 mg PO DAILY 11/02/16 [History] Melatonin/Pyridoxine HCl (B6) [Melatonin 1 mg Tablet] 12 mg PO HS 11/02/16 [ History] Naproxen [EC-Naprosyn] 500 mg PO BID 11/02/16 [History] Polyvinyl Alcohol/Povidone/Pf [Refresh Classic Eye Drops] 1 drop OP QID PRN [History] PredniSONE 10 mg PO DAILY 11/02/16 [History] Pseudoephedrine [Sudafed] 60 mg PO BID 11/02/16 [History] RisperiDONE [Risperdal] 0.5 mg PO BID 11/02/16 [History] Trazodone HCl 50 mg PO HS 11/02/16 [History] Atorvastatin [Lipitor] 10 mg PO HS #30 tablet 11/04/16 [Rx] Clopidogrel [Plavix] 75 mg PO DAILY #30 tablet 11/04/16 [Rx] Lisinopril [Zestril] 20 mg PO DAILY #30 tablet 11/04/16 [Rx] Metoprolol [Lopressor] 25 mg PO BID #30 tablet 11/04/16 [Rx] Prazosin [Minipress] 2 mg PO HS #30 capsule 11/04/16 [Rx] Rivaroxaban [Xarelto] 20 mg PO DAILY #30 tablet 11/04/16 [Rx] Thiamine (B-1) [Vitamin B-1] 100 mg PO QAM #30 tablet 11/04/16 [Rx] Allergies/Adverse Reactions: Allergies No Known Allergies Allergy (Verified 05/06/15 08:01) - Respiratory Orders Smoking Cessation: Smoking cessation has been advised. For more information, call the [place] Tobacco Quit Line at 5-962-YENV-NOW. - Rehabiliation Orders Rehab Orders: ROM Exercises, Evaluation for Physical Therapy, Evaluation for Occupational Therapy CERTIFICATION: I certify that the transfer of the above named patient to an Extended Care Facility is necessary for the continuing treatment of the diagnosis listed. The above information is true and accurate reflection of patient's current condition. Confidential - Redisclosure prohibited without a patient's written consent.
== END 2016-11-04 12:30 | DRG 69 ==
LOC: EMEROO 10:08 → 2NENU 10:08
PROVIDERS: ADMIT Internal Medicine; ATTEND Internal Medicine

== ENCOUNTER 2017-01-17 18:07 | Inpatient (IN) ==
--- NOTE | 2017-01-17 18:38 | Emergency Department Note ---
START Narrative - START START: I dr simon examined this patient and my medical decision-making was reviewed with the CHRISTIAN COUNSELOR/PA/Advanced Practice Nurse/Resident Physician. I agree with the documented findings, disposition and treatment plan as described except to the extent set forth below. 51 yo M here for suicidal thoughts but no active plan. hx of depression. hospitalized in september for psych. admits to etoh. denies other drugs labs and 1A eval.
--- NOTE | 2017-01-17 18:39 | Emergency Department Note ---
Disposition Clinical Impression: Suicidal ideation Disposition: Still a Patient Referrals: NO,PCP [Primary Care Provider] - Forms: ED Satisfaction Letter Psych HPI - General Chief Complaint: ED Psychiatric Symptoms Stated Complaint: SI Time Seen by Provider: 01/17/17 18:10 Source: EMS Limitations: no limitations Nursing Notes Reviewed: Yes Vital Signs Reviewed: Yes - History of Present Illness HPI Narrative: 51-year-old male presenting to the emergency department with suicidal ideation. He states for the past 3 days he has not been taking his regular medications for his PTSD and depression. He states he has felt that he does not want to take the medications anymore. He did not have a specific plan for any suicide attempt. He is not having any homicidal ideation. He states he does not use any drugs but drinks a sixpack of beer every single day. He discloses a history of only hypertension. He was previously hospitalized in September for similar psychiatric complaints. He is not currently in no pain and has no medical concerns at this moment Pt complaint: suicidal ideation, feels depressed - Related Data Home Medications Medication Instructions Recorded Confirmed Brimonidine Tartrate [Alphagan P] 1 drop LEFT EYE BID 05/06/15 11/02/16 Latanoprost [Xalatan] 1 drop BOTH EYES HS 05/06/15 11/02/16 Acetaminophen [Tylenol] 650 mg PO BID PRN 05/29/15 11/02/16 Docusate Sodium [Colace] 200 mg PO BID 05/29/15 11/02/16 FLUoxetine HCl [Prozac] 20 mg PO DAILY 05/29/15 11/02/16 Albuterol Sulfate [Proair Hfa] 2 puff IH QID PRN 11/02/16 11/02/16 Aspirin [Lo-Dose Aspirin EC] 81 mg PO DAILY 11/02/16 11/02/16 Calcium Carbonate/Vitamin D3 1 tab PO BID 11/02/16 11/02/16 [Calcium 600 + Vit D Tablet] Ferrous Sulfate [Iron] 325 mg PO BID 11/02/16 11/02/16 Fluticasone Propionate Nasal 100 mcg NS HS 11/02/16 11/02/16 [Flonase] Loratadine [Allergy Relief] 10 mg PO DAILY 11/02/16 11/02/16 Melatonin/Pyridoxine HCl (B6) 12 mg PO HS 11/02/16 11/02/16 [Melatonin 1 mg Tablet] Naproxen [EC-Naprosyn] 500 mg PO BID 11/02/16 11/02/16 Polyvinyl Alcohol/Povidone/Pf 1 drop OP QID PRN 11/02/16 11/02/16 [Refresh Classic Eye Drops] Pseudoephedrine [Sudafed] 60 mg PO BID 11/02/16 11/02/16 RisperiDONE [Risperdal] 0.5 mg PO BID 11/02/16 11/02/16 Trazodone HCl 50 mg PO HS 11/02/16 11/02/16 predniSONE [PredniSONE] 10 mg PO DAILY 11/02/16 11/02/16 Previous Rx's Medication Instructions Recorded Atorvastatin [Lipitor] 10 mg PO HS #30 tablet 11/04/16 Clopidogrel [Plavix] 75 mg PO DAILY #30 tablet 11/04/16 Lisinopril [Zestril] 20 mg PO DAILY #30 tablet 11/04/16 Metoprolol [Lopressor] 25 mg PO BID #30 tablet 11/04/16 Prazosin [Minipress] 2 mg PO HS #30 capsule 11/04/16 Rivaroxaban [Xarelto] 20 mg PO DAILY #30 tablet 11/04/16 Thiamine (B-1) [Vitamin B-1] 100 mg PO QAM #30 tablet 11/04/16 Allergies Allergy/AdvReac Type Severity Reaction Status Date / Time No Known Allergies Allergy Verified 01/17/17 18:09 Constitutional: Reports: as per HPI Eyes: Reports: as per HPI ENT ED: Reports: as per HPI Cardiovascular: Reports: as per HPI Respiratory: Reports: as per HPI Gastrointestinal: Reports: as per HPI Genitourinary: Reports: as per HPI Musculoskeletal: Reports: as per HPI Integumentary: Reports: as per HPI Psychiatric: Reports: depression, suicidal thoughts. Denies: homicidal thoughts , auditory hallucinations, visual hallucinations Past Medical History - Past Medical History Medical history: Reports: COPD, glaucoma, hypertension, seizures, TIA Surgical history: Reports: other Psychiatric history: Reports: depression - Social History Smoking Status: Current some day smoker Smokeless Tobacco Status: No Alcohol use: Reports: heavy Drug use: Reports: none Physical Exam - General Limitations: no limitations General appearance: alert, in no apparent distress - Head Head exam: atraumatic, normocephalic - Eye Eye exam: Present: normal appearance - Neck Neck exam: Present: normal inspection - Chest Chest inspection: Present: normal inspection, symmetric chest wall rise. Absent : tenderness - Respiratory Respiratory exam: Present: normal lung sounds bilaterally. Absent: respiratory distress, wheezes - Cardiovascular Cardiovascular exam: Present: regular rate, normal rhythm - Extremities Exam Extremities exam: Present: normal inspection, full ROM - Neurological Exam Neurological exam: Present: alert, oriented X3 - Psychiatric Psychiatric exam: Present: depressed, flat affect, suicidal ideation. Absent: homicidal ideation - Skin Skin exam: Present: warm, intact Course Course Narrative: 51-year-old male presenting to the emergency department for suicidal ideation. A psychiatric workup will be started. Vital Signs Temperature 98.1 F 01/17/17 18:09 Pulse Rate 86 01/17/17 18:09 Respiratory Rate 16 01/17/17 18:09 Blood Pressure 148/100 01/17/17 18:09 O2 Sat by Pulse Oximetry 98 01/17/17 18:09 Temperature 98.1 F 01/17/17 18:09 Pulse Rate 86 01/17/17 18:09 Respiratory Rate 16 01/17/17 18:09 Blood Pressure 148/100 01/17/17 18:09 O2 Sat by Pulse Oximetry 98 01/17/17 18:09 Oxygen Delivery Oxygen Delivery Room Air Psychiatric Medical Clearance - Medical Clearance Checklist Medical History: No Social History Section defined Current Vitals: Last Vital Signs Temp 98.1 F 01/17/17 18:09 Pulse 86 01/17/17 18:09 Resp 16 01/17/17 18:09 BP 148/100 01/17/17 18:09 Pulse Ox 98 01/17/17 18:09 Statement of Medical Clearance: I have evaluated the patient, reviewed diagnostic information, and certify that the patient's medical condition is sufficiently stable that transfer to the psychiatric unit does not pose a significant risk of deterioration.
[2017-01-17 19:01] LABS: Basophils % 0.8 %; Eosinophils # 0.1 K/mcL (0.0-0.6); Eosinophils % 2.9 %; Hematocrit 38.2 % (37.5-50.1); Hemoglobin 12.4 g/dL (12.9-16.9); Immature Granulocytes % 0.3 % (0-4); Lymphocytes # 0.5 K/mcL (0.6-4.6); Lymphocytes % 13.3 %; Mean Corpuscular HGB Conc 32.5 g/dL (31.6-35.5); Mean Corpuscular Volume 89.5 fL (83.0-100.0); Mean Platelet Volume 8.7 fL (9.4-12.4); Monocytes # 0.5 K/mcL (0.0-1.3); Monocytes % 13.5 %; Neutrophils # 2.7 K/mcL (1.6-8.9); Platelet Count 178 K/mcL (140-400); Red Blood Count 4.27 M/mcL (4.19-5.50); Red Cell Distribution Width 20.8 % (11.5-14.5); Segmented Neutrophils % 69.2 %
[2017-01-17 19:16] LABS: BUN/Creatinine Ratio 8 (6-26); Blood Urea Nitrogen 7 mg/dL (8-26); Calcium 9.5 mg/dL (8.6-10.8); Carbon Dioxide 28 mEq/L (19-29); Chloride 100 mEq/L (98-109); Glucose 80 mg/dL (70-99); Osmolality,Calculated 283 (280-300); Sodium 138 mEq/L (136-145); eGFR For African Americans > 60 (> 60); eGFR For Non-African Americans > 60 (> 60)
[2017-01-17 19:18] LABS: Acetaminophen < 1.0 mcg/mL (10-30); Ethanol < 10 mg/dL (0-10); Salicylate < 5.0 mg/dL (15-30)
[2017-01-17 19:38] LABS: Thyroid Stimulating Hormone 2.519 mcIU/mL (0.350-4.840)
[2017-01-17] MEDS ORDERED: Ondansetron ODT 4 MG TAB.RAPDIS SL ONE (20:10)
[2017-01-17 20:33] LABS: Bilirubin,Urine Small (Negative); Blood,Urine Negative (Negative); Clarity,Urine Clear (Clear); Color,Urine Yellow (Yellow); Glucose,Urine (UA) Normal (Normal); Ketones,Urine 15 mg/dL (Negative); Leukocyte Esterase,Urine Negative (Negative); Nitrite,Urine Negative (Negative); PH,Urine 5.5 pH Units (5.0-8.0); Protein,Urine Trace mg/dL (Neg-Trace); Specific Gravity,Urine 1.023 (1.010-1.025); Urobilinogen,Urine Normal (Normal)
[2017-01-17 20:34] LABS: Bacteria,Urine None Seen per hpf (None-Few); Hyaline Casts,Urine None Seen per lpf (None-Few); Squamous Epithelial Cell,Urine Moderate per lpf (None-Few); WBC,Urine 0-3 per hpf (0-3)
[2017-01-17 20:39] LABS: Amphetamine Screen,Urine Negative ng/mL (Cutoff=1000); Barbiturate Screen,Urine Negative ng/mL (Cutoff=200); Benzodiazepines Screen,Urine Negative ng/mL (Cutoff=200); Cannabinoid Screen,Urine Negative ng/mL (Cutoff = 50); Cocaine Screen,Urine Negative ng/mL (Cutoff= 300); Opiate Screen,Urine Negative ng/mL (Cutoff=300); Phencyclidine Screen,Urine Negative ng/mL (Cutoff=25)
--- NOTE | 2017-01-17 21:02 | Emergency Department Note ---
Disposition Clinical Impression: Suicidal ideation, Alcohol abuse Disposition: Admitted As Inpatient Condition: Good Referrals: NO,PCP [Primary Care Provider] - Forms: ED Satisfaction Letter Time of Disposition: 22:24 Psych HPI - General Chief Complaint: ED Psychiatric Symptoms Stated Complaint: SI Time Seen by Provider: 01/17/17 18:10 Source: EMS - Related Data Home Medications Medication Instructions Recorded Confirmed Brimonidine Tartrate [Alphagan P] 1 drop LEFT EYE BID 05/06/15 01/17/17 Latanoprost [Xalatan] 1 drop BOTH EYES HS 05/06/15 01/17/17 Docusate Sodium [Colace] 100 mg PO BID PRN 05/29/15 01/17/17 FLUoxetine HCl [Prozac] 40 mg PO DAILY 05/29/15 01/17/17 Albuterol Sulfate [Proair Hfa] 2 puff IH QID PRN 11/02/16 01/17/17 Calcium Carbonate/Vitamin D3 1 tab PO BID 11/02/16 01/17/17 [Calcium 600 + Vit D Tablet] Ferrous Sulfate [Iron] 325 mg PO BID 11/02/16 01/17/17 RisperiDONE [Risperdal] 0.5 mg PO BID 11/02/16 01/17/17 Carboxymethylcellulose Sodium 1 drop BOTH EYES QID PRN 01/17/17 01/17/17 [Refresh Liquigel] Hydrocortisone 1% CREAM [Cortaid] 1 appl TP TID 01/17/17 01/17/17 Ipratropium/Albuterol Neb [Duoneb] 3 ml IH QID PRN 01/17/17 01/17/17 Ipratropium/Albuterol Sulfate 1 puff IH QID PRN 01/17/17 01/17/17 [Combivent Respimat Inhal [place]] Melatonin [Melatin] 12 mg PO HS 01/17/17 01/17/17 Omeprazole [PriLOSEC] 20 mg PO DAILY 01/17/17 01/17/17 Rivaroxaban [Xarelto] 20 mg PO DAILY 01/17/17 01/17/17 Sildenafil Citrate [Viagra] 25 mg PO DAILY PRN 01/17/17 01/17/17 Previous Rx's Medication Instructions Recorded Atorvastatin [Lipitor] 10 mg PO HS #30 tablet 11/04/16 Clopidogrel [Plavix] 75 mg PO DAILY #30 tablet 11/04/16 Lisinopril [Zestril] 20 mg PO DAILY #30 tablet 11/04/16 Metoprolol [Lopressor] 25 mg PO BID #30 tablet 11/04/16 Prazosin [Minipress] 2 mg PO HS #30 capsule 11/04/16 Allergies Allergy/AdvReac Type Severity Reaction Status Date / Time No Known Allergies Allergy Verified 01/17/17 18:09 Constitutional: Reports: as per HPI Eyes: Reports: as per HPI ENT ED: Reports: as per HPI Cardiovascular: Reports: as per HPI Respiratory: Reports: as per HPI Gastrointestinal: Reports: as per HPI Genitourinary: Reports: as per HPI Musculoskeletal: Reports: as per HPI Integumentary: Reports: as per HPI Psychiatric: Reports: depression, suicidal thoughts. Denies: homicidal thoughts , auditory hallucinations, visual hallucinations Past Medical History - Past Medical History Medical history: Reports: COPD, glaucoma, hypertension, seizures, TIA Surgical history: Reports: other Psychiatric history: Reports: depression - Social History Smoking Status: Current some day smoker Smokeless Tobacco Status: No Alcohol use: Reports: heavy Drug use: Reports: none Physical Exam - General Limitations: no limitations General appearance: alert, in no apparent distress Course Course Narrative: Patient signed out at the beginning of my shift. Patient is actively suicidal at this time. Denies any other symptoms or complaints. Physical exam is benign. Medical clearance to be completed. He is of better at this time but they do not have beds at their facility so he will be evaluated by psychiatric team at this facility - Reevaluation(s) Reevaluation #1: Nursing informant patient has been having intermittent nausea vomiting while here. Would better evaluate the patient is having abdominal discomfort. No known history symptoms of trauma. CT imaging the abdomen ordered at this time. Time: 21:07 Reevaluation #2: CT imaging is still pending at this time. Psychiatric team recommends admission for medical evaluation considering patient has history of alcohol abuse. Is not currently intoxicated but they are concerned about withdrawal symptoms while being evaluated in the psychiatric [facility]. There are recommending psychiatric evaluation and admission. [place] slip to be completed Time: 22:24 Reevaluation #3: CT imaging is negative for acute intra-abdominal pathology. The hospitalist dr. goodwin and I reviewed the presentation symptoms in consultation by psychiatry. They are comfortable bringing the patient emergency room and hospital for evaluation. Discussion was had about the alcohol abuse and symptoms. No other concerns or issues at this time. Patient is stable in the emergency room. Again CT imaging and labs are negative. Time: 23:19 Vital Signs Temperature 98.1 F 01/17/17 18:09 Pulse Rate 86 01/17/17 18:09 Respiratory Rate 16 01/17/17 18:09 Blood Pressure 148/100 01/17/17 18:09 O2 Sat by Pulse Oximetry 98 01/17/17 18:09 Temperature 98.1 F 01/17/17 18:09 Pulse Rate 86 01/17/17 18:09 Respiratory Rate 16 01/17/17 18:09 Blood Pressure 148/100 01/17/17 18:09 O2 Sat by Pulse Oximetry 98 01/17/17 18:09 Oxygen Delivery Oxygen Delivery Room Air Psych - MDM Narrative Medical decision making narrative: Suicidal ideation, medical clearance - Lab Data Lab results reviewed: Yes I reviewed the patient's lab results. Result diagrams: 01/17/17 18:55 01/17/17 18:55 Lab Results 01/17/17 01/17/17 01/17/17 Range/Units 18:55 18:55 20:23 WBC 3.8 L (4.3-11.1) K/mcL RBC 4.27 (4.19-5.50) M/mcL Hgb 12.4 L (12.9-16.9) g/dL Hct 38.2 (37.5-50.1) % MCV 89.5 (83.0-100.0) fL MCH 29.0 (28.0-33.3) pg MCHC 32.5 (31.6-35.5) g/dL RDW 20.8 H (11.5-14.5) % Plt Count 178 (140-400) K/mcL MPV 8.7 L (9.4-12.4) fL Immature Gran % 0.3 (0-4) % Seg Neutrophils % 69.2 % Lymphocytes % 13.3 % Monocytes % 13.5 % Eosinophils % 2.9 % Basophils % 0.8 % Neutrophils # 2.7 (1.6-8.9) K/mcL Lymphocytes # 0.5 L (0.6-4.6) K/mcL Monocytes # 0.5 (0.0-1.3) K/mcL Eosinophils # 0.1 (0.0-0.6) K/mcL Basophils # 0.0 (0.0-0.2) K/mcL Sodium 138 (136-145) mEq/L Potassium 4.0 (3.5-4.5) mEq/L Chloride 100 (98-109) mEq/L Carbon Dioxide 28 (19-29) mEq/L BUN 7 L (8-26) mg/dL Creatinine 0.86 (0.72-1.25) mg/dL Est GFR ( Amer) > 60 (> 60) Est GFR (Non-Af Amer) > 60 (> 60) BUN/Creatinine Ratio 8 (6-26) Glucose 80 (70-99) mg/dL Calculated Osmolality 283 (280-300) Calcium 9.5 (8.6-10.8) mg/dL TSH 2.519 (0.350-4.840) mcIU/mL Urine Color Yellow (Yellow) Urine Clarity Clear (Clear) Urine pH 5.5 (5.0-8.0) pH Units Ur Specific [place] 1.023 (1.010-1.025) Urine Protein Trace (Neg-Trace) mg/dL Urine Glucose (UA) Normal (Normal) mg/dL Urine Ketones 15 H (Negative) mg/dL Urine Blood Negative (Negative) Urine Nitrite Negative (Negative) Urine Bilirubin Small H (Negative) Urine Urobilinogen Normal (Normal) mg/dL Ur Leukocyte Esterase Negative (Negative) Urine Microscopic RBC 3-5 H (0-3) per hpf Urine Microscopic WBC 0-3 (0-3) per hpf Ur Squamous Epith Cells Moderate H (None-Few) per lpf Urine Bacteria None Seen (None-Few) per hpf Hyaline Casts None Seen (None-Few) per lpf Salicylates < 5.0 L (15-30) mg/dL Urine Opiates Screen (Zsjblg=513) ng/mL Acetaminophen < 1.0 L (10-30) mcg/mL Ur Barbiturates Screen (Wvmptu=379) ng/mL Ur Phencyclidine Scrn (Cutoff=25) ng/mL Ur Amphetamines Screen (Itdgev=5469) ng/mL U Benzodiazepines Scrn (Dggjds=174) ng/mL Urine Cocaine Screen (Cutoff= 300) ng/mL U Marijuana (THC) Screen (Cutoff = 50) ng/mL Ethyl Alcohol < 10 (0-10) mg/dL 01/17/17 Range/Units 20:23 WBC (4.3-11.1) K/mcL RBC (4.19-5.50) M/mcL Hgb (12.9-16.9) g/dL Hct (37.5-50.1) % MCV (83.0-100.0) fL MCH (28.0-33.3) pg MCHC (31.6-35.5) g/dL RDW (11.5-14.5) % Plt Count (140-400) K/mcL MPV (9.4-12.4) fL Immature Gran % (0-4) % Seg Neutrophils % % Lymphocytes % % Monocytes % % Eosinophils % % Basophils % % Neutrophils # (1.6-8.9) K/mcL Lymphocytes # (0.6-4.6) K/mcL Monocytes # (0.0-1.3) K/mcL Eosinophils # (0.0-0.6) K/mcL Basophils # (0.0-0.2) K/mcL Sodium (136-145) mEq/L Potassium (3.5-4.5) mEq/L Chloride (98-109) mEq/L Carbon Dioxide (19-29) mEq/L BUN (8-26) mg/dL Creatinine (0.72-1.25) mg/dL Est GFR ( Amer) (> 60) Est GFR (Non-Af Amer) (> 60) BUN/Creatinine Ratio (6-26) Glucose (70-99) mg/dL Calculated Osmolality (280-300) Calcium (8.6-10.8) mg/dL TSH (0.350-4.840) mcIU/mL Urine Color (Yellow) Urine Clarity (Clear) Urine pH (5.0-8.0) pH Units Ur Specific [place] (1.010-1.025) Urine Protein (Neg-Trace) mg/dL Urine Glucose (UA) (Normal) mg/dL Urine Ketones (Negative) mg/dL Urine Blood (Negative) Urine Nitrite (Negative) Urine Bilirubin (Negative) Urine Urobilinogen (Normal) mg/dL Ur Leukocyte Esterase (Negative) Urine Microscopic RBC (0-3) per hpf Urine Microscopic WBC (0-3) per hpf Ur Squamous Epith Cells (None-Few) per lpf Urine Bacteria (None-Few) per hpf Hyaline Casts (None-Few) per lpf Salicylates (15-30) mg/dL Urine Opiates Screen Negative (Brafsz=825) ng/mL Acetaminophen (10-30) mcg/mL Ur Barbiturates Screen Negative (Ehzliv=639) ng/mL Ur Phencyclidine Scrn Negative (Cutoff=25) ng/mL Ur Amphetamines Screen Negative (Slomje=8973) ng/mL U Benzodiazepines Scrn Negative (Uvjpxm=712) ng/mL Urine Cocaine Screen Negative (Cutoff= 300) ng/mL U Marijuana (THC) Screen Negative (Cutoff = 50) ng/mL Ethyl Alcohol (0-10) mg/dL Psychiatric Medical Clearance - Medical Clearance Checklist Does the patient have a NEW psychiatric condition?: No Any abnormalities indicating possible medical illness?: No Any history of medical issues?: No Medical History: No Social History Section defined Any abnormal vital signs prior to transfer?: No Current Vitals: Last Vital Signs Temp 98.1 F 01/17/17 18:09 Pulse 86 01/17/17 18:09 Resp 16 01/17/17 18:09 BP 148/100 01/17/17 18:09 Pulse Ox 98 01/17/17 18:09 Is the patient intoxicated or cognitively impaired?: No Psychiatric Lab Panel: Drug Levels and Toxicity 01/17/17 01/17/17 18:55 20:23 Urine Opiates Screen Negative Acetaminophen < 1.0 L Ur Barbiturates Screen Negative Ur Phencyclidine Scrn Negative Ur Amphetamines Screen Negative U Benzodiazepines Scrn Negative Urine Cocaine Screen Negative U Marijuana (THC) Screen Negative Ethyl Alcohol < 10 Any abnormalities on the physical exam?: No Any abnormal labs?: No Abnormal Labs: Abnormal lab results WBC 3.8 K/mcL (4.3-11.1) L 01/17/17 18:55 Hgb 12.4 g/dL (12.9-16.9) L 01/17/17 18:55 RDW 20.8 % (11.5-14.5) H 01/17/17 18:55 MPV 8.7 fL (9.4-12.4) L 01/17/17 18:55 Lymphocytes # 0.5 K/mcL (0.6-4.6) L 01/17/17 18:55 BUN 7 mg/dL (8-26) L 01/17/17 18:55 Urine Ketones 15 mg/dL (Negative) H 01/17/17 20:23 Urine Bilirubin Small (Negative) H 01/17/17 20:23 Urine Microscopic RBC 3-5 per hpf (0-3) H 01/17/17 20:23 Ur Squamous Epith Cells Moderate per lpf (None-Few) H 01/17/17 20:23 Salicylates < 5.0 mg/dL (15-30) L 01/17/17 18:55 Acetaminophen < 1.0 mcg/mL (10-30) L 01/17/17 18:55 Does the patient require durable medical equiptment?: No Is the patient ambulatory?: No Is the patient a fall risk?: No Has the patient been medically cleared?: No Any acute medical condition require Tx prior to transfer?: No Statement of Medical Clearance: I have evaluated the patient, reviewed diagnostic information, and certify that the patient's medical condition is sufficiently stable that transfer to the psychiatric unit does not pose a significant risk of deterioration.
[2017-01-18] MEDS ORDERED: Naloxone 0.4 MG/ML INJ IVP PRN (01:33)
[2017-01-18] MEDS ORDERED: *HR* LORazepam 2 MG/ML VIAL IVP PRN ×3 (01:37)
[2017-01-18 05:00] LABS: Hematocrit 36.9 % (37.5-50.1); Hemoglobin 12.5 g/dL (12.9-16.9); Mean Corpuscular HGB Conc 33.9 g/dL (31.6-35.5); Mean Corpuscular Hemoglobin 29.9 pg (28.0-33.3); Mean Corpuscular Volume 88.3 fL (83.0-100.0); Mean Platelet Volume 9.7 fL (9.4-12.4); Monocytes # 0.6 K/mcL (0.0-1.3); Neutrophils # 1.4 K/mcL (1.6-8.9); Platelet Count 175 K/mcL (140-400); Red Blood Count 4.18 M/mcL (4.19-5.50); Red Cell Distribution Width 20.5 % (11.5-14.5)
[2017-01-18 05:11] LABS: Magnesium 1.5 mg/dL (1.6-2.6)
[2017-01-18] MEDS ORDERED: Artificial Tears SOLN 15 ML BOTTLE BOTH EYES PRN (05:24)
[2017-01-18] MEDS ORDERED: Ipratropium/Albuterol Neb 3 ML IH PRN (05:24)
--- NOTE | 2017-01-18 05:30 | Internal Med History&Physical ---
Date of Encounter: 01/18/17 Time of Encounter: 01:00 Assessment and Plan (1) Alcohol abuse Current visit: Yes Status: Chronic Patient is at risk of alcohol withdrawal. Start him on CIWA protocol. Thiamin and vitamin supplements. Counseled for abstinence (2) Suicidal ideation Current visit: Yes Status: Acute Psychiatry consultation (3) COPD (chronic obstructive pulmonary disease) Current visit: Yes Status: Chronic Continue home medications. Qualifiers: COPD type: emphysema Emphysema type: unspecified Qualified Code(s): J43.9 - Emphysema, unspecified (4) LLQ abdominal pain Current visit: Yes Status: Acute CT scan is negative for acute lesion. Treat for constipation (5) Depression Current visit: Yes Status: Chronic Continue his home antidepressants. Psychiatric consultation Qualifiers: Depression Type: unspecified Qualified Code(s): F32.9 - Major depressive disorder, single episode, unspecified (6) Hypertension Current visit: Yes Status: Chronic Current antihypertensives. BP stable Qualifiers: Hypertension type: essential hypertension Qualified Code(s): I10 - Essential (primary) hypertension (7) Tobacco abuse Current visit: Yes Status: Chronic Pt declined nicotine patches (8) Glaucoma Current visit: Yes Status: Chronic Continue home medications Qualifiers: Glaucoma type: unspecified Laterality: unspecified laterality Qualified Code(s): H40.9 - Unspecified glaucoma Internal Medicine - H&P: HPI Chief complaint: Suicidal ideation Admitted From: Emergency Dept Plans for Post Hospital Care: Transfer Psych Facility History of present illness: Mr. Bernal is a 51 year old male With h/o COPD, hypertension, seizures and depression presented to the ER with suicidal thoughts. He reports that 2 months ago he found his uncle (was living with him for 10 years), in the bathroom and tried to do CPR but could not save him. He blames himself for not able to save his uncle. He gets the thoughts like a movie and he cannot stop them. He feels like he is in a hole and cannot come off. He has been drinking 6 pack beers a day. Prior to this presentation, he was feeling suicidal and hence presented to the ER. He was evaluated in the ER and the psychiatrist recommended admission to the hospitalist, due to the risk of alcohol withdrawal. Patient denies chest pain, shortness of breath, cough, expectoration, fever, chills, nausea, vomiting, dysuria, hematuria. His last bowel movement was 3 days ago. He reports intermittent pain in the left lower quadrant area for 2 days, crampy and non-radiating. He had CT scan of the abdomen and abdomen and pelvis reported no acute abnormality. Past Med Surg Social Fam HX - Past Medical History Medical history: COPD, glaucoma, hypertension, seizures, TIA Psychiatric history: depression - Past Surgical History Surgical History: other - Social History Smoking Status: Current some day smoker Smokeless Tobacco Status: No Alcohol use: heavy Drug use: none - Family History Mother History Unknown: Yes Internal Medicine - H&P: Meds Brimonidine Tartrate [Alphagan P] 1 drop LEFT EYE BID 05/06/15 [History] Latanoprost [Xalatan] 1 drop BOTH EYES HS 05/06/15 [History] Docusate Sodium [Colace] 100 mg PO BID PRN 05/29/15 [History] FLUoxetine HCl [Prozac] 40 mg PO DAILY 05/29/15 [History] Albuterol Sulfate [Proair Hfa] 2 puff IH QID PRN 11/02/16 [History] Calcium Carbonate/Vitamin D3 [Calcium 600 + Vit D Tablet] 1 tab PO BID 11/02/16 [History] Ferrous Sulfate [Iron] 325 mg PO BID 11/02/16 [History] RisperiDONE [Risperdal] 0.5 mg PO BID 11/02/16 [History] Atorvastatin [Lipitor] 10 mg PO HS #30 tablet 11/04/16 [Rx] Clopidogrel [Plavix] 75 mg PO DAILY #30 tablet 11/04/16 [Rx] Lisinopril [Zestril] 20 mg PO DAILY #30 tablet 11/04/16 [Rx] Metoprolol [Lopressor] 25 mg PO BID #30 tablet 11/04/16 [Rx] Prazosin [Minipress] 2 mg PO HS #30 capsule 11/04/16 [Rx] Carboxymethylcellulose Sodium [Refresh Liquigel] 1 drop BOTH EYES QID PRN [History] Hydrocortisone 1% CREAM [Cortaid] 1 appl TP TID 01/17/17 [History] Ipratropium/Albuterol Neb [Duoneb] 3 ml IH QID PRN 01/17/17 [History] Ipratropium/Albuterol Sulfate [Combivent Respimat Inhal [place]] 1 puff IH QID PRN 01/17/17 [History] Melatonin [Melatin] 12 mg PO HS 01/17/17 [History] Omeprazole [PriLOSEC] 20 mg PO DAILY 01/17/17 [History] Rivaroxaban [Xarelto] 20 mg PO DAILY 01/17/17 [History] Sildenafil Citrate [Viagra] 25 mg PO DAILY PRN 01/17/17 [History] Allergies No Known Allergies Allergy (Verified 01/17/17 18:09) All Systems PM: A 10-system review of systems was performed and is negative for pertinent findings except as documented above in the HPI. - Constitutional Vitals: Temp Pulse Resp BP Pulse Ox 98.1 F 88 16 145/84 99 01/18/17 00:31 01/18/17 00:31 01/18/17 00:31 01/18/17 00:31 01/18/17 00:31 Exam: General: Not in acute distress at the time of my evaluation HEENT: Oral mucosa is moist. No conjunctival palor or scleral icterus Neck: No obvious neck swellings Lungs: Clear to auscultation Cardiac: Regular rate and rhythm. No significant murmurs Abdomen: Soft, Mild left flank / LLQ tenderness present. Bowel sounds present Genitourinary: No garcía catheter Neurological: Alert and oriented. No gross localizing deficits Psych: Suicidal thoughts present. No delusions or hallucination Extremities: no significant leg edema Skin: No generalized rash Internal Med - H&P Results - Labs CBC & Chem 7: 01/18/17 04:31 01/17/17 18:55 Labs: Short CBC 01/18/17 Range/Units 04:31 WBC 3.1 L (4.3-11.1) K/mcL Hgb 12.5 L (12.9-16.9) g/dL Hct 36.9 L (37.5-50.1) % Plt Count 175 (140-400) K/mcL - EKG Data -: EKG Interpreted by Myself EKG shows normal: sinus rhythm - EKG Data EKG comments: QTc 417 ms 01/18/17 07:58 - Impressions ITS Impressions Abdomen/Pelvis CT 01/17/17 21:07 IMPRESSION: Abnormal appearance of the lung bases with evidence of some fibrosis and ground-glass opacity, possibly chronic. Correlation for acute pulmonary symptoms is recommended. Cholelithiasis. Very small hiatal hernia. No acute noncontrast abnormality identified. D/ / Marguerite Oquendo Cha, MD / Marguerite Oquendo Cha, MD Interpreting Provider: Marguerite Oquendo Cha, MD - VTE Reasons for not Prescribing Prophylaxis: Treatment not Indicated - Low risk for VTE
[2017-01-18 06:54] LABS: Basophils # 0.1 K/mcL (0.0-0.2); Eosinophils # 0.1 K/mcL (0.0-0.6); Platelet Estimate Normal (Normal)
[2017-01-18 06:56] LABS: Target Cells 1+ (Not Present)
[2017-01-18 06:57] LABS: Anisocytosis 1+ (Not Present); Macrocytosis Present (Not Present); Microcytosis Present (Not Present)
[2017-01-18] MEDS: *HR* Rivaroxaban 10 MG TABLET PO SCH (10:11)
[2017-01-18] MEDS: risperiDONE 0.25 MG TABLET PO SCH ×2 (10:11→19:50)
[2017-01-18] MEDS: Lisinopril 20 MG TABLET PO SCH (10:12)
[2017-01-18] MEDS: Thiamine (B-1) 100 MG TABLET PO SCH (10:12)
[2017-01-18] MEDS: Vitamin B Complex/Vit C/Vit E 1 EACH TABLET PO SCH (10:12)
[2017-01-18] MEDS: FLUoxetine 20 MG CAPSULE PO SCH (10:12)
[2017-01-18] MEDS: Calcium 600 + Vit D PO SCH ×2 (10:13→19:52)
--- NOTE | 2017-01-18 12:13 | Consult Note ---
Date of Encounter: 01/18/17 Time of Encounter: 12:07 Assessment & Recommendation (1) Depression Current visit: Yes Status: Acute Assessment & Recommendation: Admit to inpatient psychiatry once medically cleared. [facility] as client reports he has [facility]. Qualifiers: Depression Type: major depressive disorder Major depression recurrence: recurrent Active/Remission status: currently active Psychotic features: without psychotic features Qualified Code(s): F33.2 - Major depressive disorder, recurrent severe without psychotic features History of Present Illness Requesting Physician: Celia Thrasher Reason for consult: suicidal ideation History of present illness: Mr. Bernal is a 51 year old male who presented to the ER with SI. Admitted to medical floor due to concern for alcohol withdrawal. Client reports he is drinking a twelve pack of beer and two mixed drinks a day. Denies any other drugs of abuse. Reports he has experienced alcohol withdrawal in the past. Staff report he has complained of nausea but he has had a sitter with him the entire time and no vomiting. No unstable vital signs. No Ativan given. Client reports he has never been hospitalized for mental health but that he [facility]. PTSD diagnosis is from finding his uncle in their bathroom and attempting CPR. He helped care for his uncle for ten years. Now client lives in a jail. He endorses one prior suicide attempt by cutting his wrists after his mother . Does not know names of any of his medications. Reports his medical problems consist of HTN, Seizures, and a prior CVA. Client reports his seizures started after the stroke. Endorses multiple symptoms of depression including poor sleep, poor appetite, anhedonia, lack of focus, and suicidal thoughts. Agreeable to inpatient admission. CC: Celia Thrasher Past Med Surg Social Fam HX - Past Medical History Medical history: COPD, glaucoma, hypertension, seizures, TIA - Past Psychiatric History Psychiatric history: Reports: depression, prior suicide attempt Family psychiatric history: Unknown Family History of Suicide: Unknown - Past Surgical History Surgical History: other - Social History Smoking Status: Current some day smoker Smokeless Tobacco Status: No Alcohol use: heavy Drug use: none - Family History Mother History Unknown: Yes Medications & Allergies Brimonidine Tartrate [Alphagan P] 1 drop LEFT EYE BID 05/06/15 [History] Latanoprost [Xalatan] 1 drop BOTH EYES HS 05/06/15 [History] Docusate Sodium [Colace] 100 mg PO BID PRN 05/29/15 [History] FLUoxetine HCl [Prozac] 40 mg PO DAILY 05/29/15 [History] Albuterol Sulfate [Proair Hfa] 2 puff IH QID PRN 11/02/16 [History] Calcium Carbonate/Vitamin D3 [Calcium 600 + Vit D Tablet] 1 tab PO BID 11/02/16 [History] Ferrous Sulfate [Iron] 325 mg PO BID 11/02/16 [History] RisperiDONE [Risperdal] 0.5 mg PO BID 11/02/16 [History] Atorvastatin [Lipitor] 10 mg PO HS #30 tablet 11/04/16 [Rx] Clopidogrel [Plavix] 75 mg PO DAILY #30 tablet 11/04/16 [Rx] Lisinopril [Zestril] 20 mg PO DAILY #30 tablet 11/04/16 [Rx] Metoprolol [Lopressor] 25 mg PO BID #30 tablet 11/04/16 [Rx] Prazosin [Minipress] 2 mg PO HS #30 capsule 11/04/16 [Rx] Carboxymethylcellulose Sodium [Refresh Liquigel] 1 drop BOTH EYES QID PRN [History] Hydrocortisone 1% CREAM [Cortaid] 1 appl TP TID 01/17/17 [History] Ipratropium/Albuterol Neb [Duoneb] 3 ml IH QID PRN 01/17/17 [History] Ipratropium/Albuterol Sulfate [Combivent Respimat Inhal [place]] 1 puff IH QID PRN 01/17/17 [History] Melatonin [Melatin] 12 mg PO HS 01/17/17 [History] Omeprazole [PriLOSEC] 20 mg PO DAILY 01/17/17 [History] Rivaroxaban [Xarelto] 20 mg PO DAILY 01/17/17 [History] Sildenafil Citrate [Viagra] 25 mg PO DAILY PRN 01/17/17 [History] Allergies No Known Allergies Allergy (Verified 01/17/17 18:09) Review of Systems Constitutional: Denies: fever, chills, weakness, weight change Eyes: Denies: eye pain, vision change Ears, Nose, Throat: Denies: ear pain, throat pain, dental pain, hearing loss, congestion Cardiovascular: Denies: chest pain, palpitations, dyspnea on exertion Respiratory: Denies: cough, dyspnea, wheezes Gastrointestinal: Reports: abdominal pain, nausea Genitourinary male: Denies: urgency, dysuria, frequency, genital lesions Genitourinary female: Denies: urgency, dysuria, frequency, abnormal menses, dyspareunia Musculoskeletal: Denies: joint swelling, joint pain Integumentary: Denies: rash, lesions, pruritus Neurological: Denies: headache, weakness, numbness, memory loss Endocrine: Denies: fatigue, heat or cold intolerance Hematologic/Lymphatic: Denies: easy bruising, lymphadenopathy Allergic/Immunologic: Denies: urticaria, itchy eyes Mental Status Exam Patient orientation: Yes Person, Yes Time, Yes Place Level of alertness: Alert Patient appearance: Appropriate Behavior: calm, cooperative Psychomotor activity: Normal Eye contact: Maintains Eye Contact Mood description: Depressed Affect description: congruent with mood Speech pattern: Normal rate, Normal rhythm, Normal tone Speech volume: Normal Thought process: Linear Thought content: Yes Suicidal ideation, No Homicidal ideation, No Overt delusions Perceptual disturbances: No Auditory hallucinations, No Visual hallucinations Attention span: Capable of Focused Attention Memory description: Grossly Intact Patient reliability: Reliable Historian Intelligence estimate: Average Judgment: Limited Insight: Partial Results - Vital Signs Vital signs: Temp Pulse Resp BP Pulse Ox 98.4 F 73 16 134/80 97 01/18/17 08:31 01/18/17 08:31 01/18/17 08:31 01/18/17 08:31 01/18/17 08:31 - Labs Labs: Laboratory Last Values WBC 3.1 K/mcL (4.3-11.1) L 01/18/17 04:31 RBC 4.18 M/mcL (4.19-5.50) L 01/18/17 04:31 Hgb 12.5 g/dL (12.9-16.9) L 01/18/17 04:31 Hct 36.9 % (37.5-50.1) L 01/18/17 04:31 MCV 88.3 fL (83.0-100.0) 01/18/17 04:31 MCH 29.9 pg (28.0-33.3) 01/18/17 04:31 MCHC 33.9 g/dL (31.6-35.5) 01/18/17 04:31 RDW 20.5 % (11.5-14.5) H 01/18/17 04:31 Plt Count 175 K/mcL (140-400) 01/18/17 04:31 MPV 9.7 fL (9.4-12.4) 01/18/17 04:31 Immature Gran % 0.3 % (0-4) 01/17/17 18:55 Seg Neutrophils % 44.0 % 01/18/17 04:31 Lymphocytes % 32.0 % 01/18/17 04:31 Monocytes % 18.0 % 01/18/17 04:31 Eosinophils % 4.0 % 01/18/17 04:31 Basophils % 2.0 % 01/18/17 04:31 Neutrophils # 1.4 K/mcL (1.6-8.9) L 01/18/17 04:31 Lymphocytes # 1.0 K/mcL (0.6-4.6) 01/18/17 04:31 Monocytes # 0.6 K/mcL (0.0-1.3) 01/18/17 04:31 Eosinophils # 0.1 K/mcL (0.0-0.6) 01/18/17 04:31 Basophils # 0.1 K/mcL (0.0-0.2) 01/18/17 04:31 Platelet Estimate Normal (Normal) 01/18/17 04:31 Anisocytosis 1+ (Not Present) A 01/18/17 04:31 Microcytosis Present (Not Present) A 01/18/17 04:31 Macrocytosis Present (Not Present) A 01/18/17 04:31 Target Cells 1+ (Not Present) A 01/18/17 04:31 Sodium 138 mEq/L (136-145) 01/17/17 18:55 Potassium 4.0 mEq/L (3.5-4.5) 01/17/17 18:55 Chloride 100 mEq/L (98-109) 01/17/17 18:55 Carbon Dioxide 28 mEq/L (19-29) 01/17/17 18:55 BUN 7 mg/dL (8-26) L 01/17/17 18:55 Creatinine 0.86 mg/dL (0.72-1.25) 01/17/17 18:55 Est GFR ( Amer) > 60 (> 60) 01/17/17 18:55 Est GFR (Non-Af Amer) > 60 (> 60) 01/17/17 18:55 BUN/Creatinine Ratio 8 (6-26) 01/17/17 18:55 Glucose 80 mg/dL (70-99) 01/17/17 18:55 Calculated Osmolality 283 (280-300) 01/17/17 18:55 Calcium 9.5 mg/dL (8.6-10.8) 01/17/17 18:55 Magnesium 1.5 mg/dL (1.6-2.6) L 01/18/17 04:31 C-Reactive Protein 13 mg/L (Less than 5) H 01/18/17 04:31 TSH 2.519 mcIU/mL (0.350-4.840) 01/17/17 18:55 Urine Color Yellow (Yellow) 01/17/17 20:23 Urine Clarity Clear (Clear) 01/17/17 20:23 Urine pH 5.5 pH Units (5.0-8.0) 01/17/17 20:23 Ur Specific [place] 1.023 (1.010-1.025) 01/17/17 20:23 Urine Protein Trace mg/dL (Neg-Trace) 01/17/17 20:23 Urine Glucose (UA) Normal mg/dL (Normal) 01/17/17 20:23 Urine Ketones 15 mg/dL (Negative) H 01/17/17 20:23 Urine Blood Negative (Negative) 01/17/17 20:23 Urine Nitrite Negative (Negative) 01/17/17 20:23 Urine Bilirubin Small (Negative) H 01/17/17 20:23 Urine Urobilinogen Normal mg/dL (Normal) 01/17/17 20:23 Ur Leukocyte Esterase Negative (Negative) 01/17/17 20:23 Urine Microscopic RBC 3-5 per hpf (0-3) H 01/17/17 20:23 Urine Microscopic WBC 0-3 per hpf (0-3) 01/17/17 20:23 Ur Squamous Epith Cells Moderate per lpf (None-Few) H 01/17/17 20:23 Urine Bacteria None Seen per hpf (None-Few) 01/17/17 20:23 Hyaline Casts None Seen per lpf (None-Few) 01/17/17 20:23 Salicylates < 5.0 mg/dL (15-30) L 01/17/17 18:55 Urine Opiates Screen Negative ng/mL (Pmqnjz=891) 01/17/17 20:23 Acetaminophen < 1.0 mcg/mL (10-30) L 01/17/17 18:55 Ur Barbiturates Screen Negative ng/mL (Kvvkxh=573) 01/17/17 20:23 Ur Phencyclidine Scrn Negative ng/mL (Cutoff=25) 01/17/17 20:23 Ur Amphetamines Screen Negative ng/mL (Bmhjyl=2072) 01/17/17 20:23 U Benzodiazepines Scrn Negative ng/mL (Uthyjc=166) 01/17/17 20:23 Urine Cocaine Screen Negative ng/mL (Cutoff= 300) 01/17/17 20:23 U Marijuana (THC) Screen Negative ng/mL (Cutoff = 50) 01/17/17 20:23 Ethyl Alcohol < 10 mg/dL (0-10) 01/17/17 18:55 Consult Discharge Plan - Plan Referrals: NO,PCP [Primary Care Provider] -
--- NOTE | 2017-01-18 13:56 | Internal Med Progress Note ---
Date of Encounter: 01/18/17 Time of Encounter: 12:30 - Assessment and plan (1) Suicidal ideation Current Visit: Yes Status: Acute (2) At high risk for suicide Current Visit: Yes Status: Acute Assessment and plan: patient stating he was deployed for 3 years to [place] and [place] and states that when he got back his PTSD was so severe that he got a divorce at which time he moved in with his uncle. He had been living with his uncle for the past 10 years when he found him unresponsive in the bathroom and was unable to revive him with CPR. He blames himself for his and states that he is constantly reminded of this traumatic event. He feels as if he has no one and has no reason to live for. He is at an extremely high risk for suicide. He is not future-oriented and did not want to discuss any issues regarding the future. He denies a specific plan. Psychiatry is onboard- will transfer down once threat of DT's from ETOH withdrawal is lessened. (3) Hypertension Current Visit: Yes Status: Chronic Assessment and plan: Hypertensive at times however the patient is extremely emotionally upset. We will continue to monitor, no indication for medication change at this time. Qualifiers: Hypertension type: essential hypertension Qualified Code(s): I10 - Essential (primary) hypertension (4) Tobacco abuse Current Visit: Yes Status: Chronic Assessment and plan: Did not want to discuss smoking cessation. Declined nicotine patches. (5) PTSD (post-traumatic stress disorder) Current Visit: No Status: Chronic Assessment and plan: See prior note for at high risk for suicide (6) Depression Current Visit: Yes Status: Chronic Qualifiers: Depression Type: major depressive disorder Major depression recurrence: recurrent Active/Remission status: currently active Major depression episode severity: severe Psychotic features: without psychotic features Qualified Code(s): F33.2 - Major depressive disorder, recurrent severe without psychotic features (7) DVT prophylaxis Current Visit: No Status: Acute Assessment and plan: home Xarelto continued (8) Seizures Current Visit: No Status: Acute Assessment and plan: patient stating that he has had seizures when he has attempted to withdrawal from alcohol in the past. He was unable to tell me how many times he has seized and when his last seizure was. He told me that he drinks a 12 pack of beer and several mixed drinks daily. Will add lower dose Librium and monitor closely on CIWA. Will transfer once seizure likelihood is lessened. His last drink was 2 days ago- will observe and transfer once medically cleared which could be tomorrow or several days pending clinical outcomes. (9) COPD (chronic obstructive pulmonary disease) Current Visit: Yes Status: Chronic Assessment and plan: No acute exacerbation. Patient denies shortness of breath above his norm. Qualifiers: COPD type: emphysema Emphysema type: unspecified Qualified Code(s): J43.9 - Emphysema, unspecified (10) Alcohol abuse Current Visit: Yes Status: Chronic (11) Glaucoma Current Visit: Yes Status: Chronic Qualifiers: Glaucoma type: unspecified Laterality: unspecified laterality Qualified Code(s): H40.9 - Unspecified glaucoma (12) LLQ abdominal pain Current Visit: Yes Status: Resolved Assessment and plan: Patient currently denies abdominal pain. He has been able to take a little bit of food and drink since admission, continue antiemetics and diet as tolerated. - Subjective Interval history: Patient seen and examined. On examination, patient resting supine in bed with the sheets progress head. Patient saying that he is not feeling well. He states he was able to eat a couple bites but he is hungry. He denies pain at this time. He states he is still extremely depressed and blames himself for his uncle's . - Constitutional Vitals: Temp Pulse Resp BP Pulse Ox 97.9 F 61 14 154/95 97 01/18/17 12:12 01/18/17 12:12 01/18/17 12:12 01/18/17 12:12 01/18/17 12:12 General appearance: Present: mild distress (emotionally), A&O X 3, pleasant, answers questions appropriately - Head Head exam: Present: atraumatic, normocephalic - Eye Eye exam: Present: PERRL, conjuntiva pink, sclera anicteric Pupils: Present: PERRL - Neck Neck exam general surgery: Present: supple, trachea midline. Absent: lymphadenopathy - Respiratory Respiratory exam: Present: CTAB. Absent: accessory muscle use, rales, respiratory distress, rhonchi, wheezes - Cardiovascular Cardiovascular exam: Present: RRR, +S1, +S2. Absent: diastolic murmur, gallop, rubs, systolic murmur - GI/Abdominal GI/Abdominal exam: Present: hyperactive bowel sounds, soft, tenderness, no peritoneal signs. Absent: distended - Extremities Exam Extremities exam: Present: warm, radial pulses palpable and symetrical. Absent : calf tenderness, cyanotic, pedal edema - Neurological Exam Neurological exam: Present: alert, CN II-XII intact, oriented X3, no focal deficits, strengths equal and symetr throughout. Absent: pronater drift, facial droop, speech deficit - Psychiatric Psychiatric exam: Present: depressed, flat affect, suicidal ideation - Expanded Psychiatric Exam Focused psych exam: Present: perseverating - Skin Skin exam: Present: dry, intact, pallor, warm Internal Medicine: Result - Labs CBC & Chem 7: 01/18/17 04:31 01/17/17 18:55 Labs: Short CBC 01/18/17 Range/Units 04:31 WBC 3.1 L (4.3-11.1) K/mcL Hgb 12.5 L (12.9-16.9) g/dL Hct 36.9 L (37.5-50.1) % Plt Count 175 (140-400) K/mcL Neutrophils # 1.4 L (1.6-8.9) K/mcL - VTE Reasons for not Prescribing Prophylaxis: Treatment not Indicated - Low risk for VTE Consult Discharge Plan - Plan Referrals: NO,PCP [Primary Care Provider] -
[2017-01-18] MEDS: Magnesium Oxide 400 MG TABLET PO SCH ×2 (15:12→19:50)
[2017-01-18] MEDS: Ondansetron ODT 4 MG TAB.RAPDIS SL PRN (15:26)
[2017-01-18] MEDS: Melatonin 3 MG TABLET PO SCH (19:50)
[2017-01-18] MEDS: Latanoprost 2.5 ML BOTTLE BOTH EYES SCH (19:53)
[2017-01-19 05:31] LABS: BUN/Creatinine Ratio 11 (6-26); Blood Urea Nitrogen 10 mg/dL (8-26); Calcium 8.7 mg/dL (8.6-10.8); Carbon Dioxide 30 mEq/L (19-29); Chloride 102 mEq/L (98-109); Glucose 89 mg/dL (70-99); Osmolality,Calculated 283 (280-300); Potassium 3.8 mEq/L (3.5-4.5); Sodium 137 mEq/L (136-145); eGFR For African Americans > 60 (> 60); eGFR For Non-African Americans > 60 (> 60)
[2017-01-19 05:33] LABS: Magnesium 1.9 mg/dL (1.6-2.6)
[2017-01-19] MEDS: Magnesium Oxide 400 MG TABLET PO SCH (09:18)
[2017-01-19] MEDS: Vitamin B Complex/Vit C/Vit E 1 EACH TABLET PO SCH (09:18)
[2017-01-19] MEDS: Thiamine (B-1) 100 MG TABLET PO SCH (09:18)
[2017-01-19] MEDS: FLUoxetine 20 MG CAPSULE PO SCH (09:18)
[2017-01-19] MEDS: Lisinopril 20 MG TABLET PO SCH (09:19)
[2017-01-19] MEDS: risperiDONE 0.25 MG TABLET PO SCH ×2 (09:19→20:02)
[2017-01-19] MEDS: *HR* Rivaroxaban 10 MG TABLET PO SCH (09:19)
[2017-01-19] MEDS: Calcium 600 + Vit D PO SCH ×2 (09:20→20:04)
--- NOTE | 2017-01-19 10:17 | Discharge Summary ---
Date of Encounter: 01/19/17 Time of Encounter: 09:30 - Discharge Diagnosis (1) Suicidal ideation Priority: Primary Status: Acute (2) At high risk for suicide Priority: Primary Status: Acute Comments: patient stating he was deployed for 3 years to [place] and [place] and states that when he got back his PTSD was so severe that he got a divorce at which time he moved in with his uncle. He had been living with his uncle for the past 10 years when he found him unresponsive in the bathroom and was unable to revive him with CPR. He blames himself for his and states that he is constantly reminded of this traumatic event. He feels as if he has no one and has no reason to live for. He is at an extremely high risk for suicide. He is not future-oriented and did not want to discuss any issues regarding the future. He denies a specific plan. Psychiatry is onboard and we will transfer him down once a bed in available. He is medically cleared (3) Hypertension Priority: Secondary Status: Chronic Comments: Hypertensive at times initially, but her was extremely emotionally upset. Normotensive on day of discharge. Qualifiers: Hypertension type: essential hypertension Qualified Code(s): I10 - Essential (primary) hypertension (4) Tobacco abuse Priority: Secondary Status: Chronic Comments: Did not want to discuss smoking cessation. Declined nicotine patches. (5) PTSD (post-traumatic stress disorder) Priority: Secondary Status: Chronic (6) Depression Priority: Secondary Status: Chronic Qualifiers: Depression Type: major depressive disorder Major depression recurrence: recurrent Active/Remission status: currently active Major depression episode severity: severe Psychotic features: without psychotic features Qualified Code(s): F33.2 - Major depressive disorder, recurrent severe without psychotic features (7) DVT prophylaxis Priority: Primary Status: Acute Comments: home Xarelto continued (8) Seizures Priority: Primary Status: Ruled-out Comments: patient stating that he has had seizures when he has attempted to withdrawal from alcohol in the past. He was unable to tell me how many times he has seized and when his last seizure was. He told me that he drinks a 12 pack of beer and several mixed drinks daily. Lower dose Librium was added to his regimen and he scored very low on CIWA. Low suspicion for seizures- medically cleared for transfer to psych. Will send on librium taper. (9) COPD (chronic obstructive pulmonary disease) Priority: Secondary Status: Chronic Comments: No acute exacerbation. Patient denies shortness of breath above his norm. Qualifiers: COPD type: emphysema Emphysema type: unspecified Qualified Code(s): J43.9 - Emphysema, unspecified (10) Alcohol abuse Priority: Secondary Status: Chronic (11) Glaucoma Priority: Secondary Status: Chronic Qualifiers: Glaucoma type: unspecified Laterality: unspecified laterality Qualified Code(s): H40.9 - Unspecified glaucoma (12) LLQ abdominal pain Priority: Primary Status: Resolved - Discharge Medications Prescriptions: Chlordiazepoxide [Librium] 25 mg PO AD #12 Thiamine (B-1) [Vitamin B-1] 100 mg PO DAILY #30 tab Home Medications: Brimonidine Tartrate [Alphagan P] 1 drop LEFT EYE BID 05/06/15 [History] Latanoprost [Xalatan] 1 drop BOTH EYES HS 05/06/15 [History] Docusate Sodium [Colace] 100 mg PO BID PRN 05/29/15 [History] FLUoxetine HCl [Prozac] 40 mg PO DAILY 05/29/15 [History] Albuterol Sulfate [Proair Hfa] 2 puff IH QID PRN 11/02/16 [History] Calcium Carbonate/Vitamin D3 [Calcium 600 + Vit D Tablet] 1 tab PO BID 11/02/16 [History] Ferrous Sulfate [Iron] 325 mg PO BID 11/02/16 [History] RisperiDONE [Risperdal] 0.5 mg PO BID 11/02/16 [History] Atorvastatin [Lipitor] 10 mg PO HS #30 tablet 11/04/16 [Rx] Clopidogrel [Plavix] 75 mg PO DAILY #30 tablet 11/04/16 [Rx] Lisinopril [Zestril] 20 mg PO DAILY #30 tablet 11/04/16 [Rx] Metoprolol [Lopressor] 25 mg PO BID #30 tablet 11/04/16 [Rx] Prazosin [Minipress] 2 mg PO HS #30 capsule 11/04/16 [Rx] Carboxymethylcellulose Sodium [Refresh Liquigel] 1 drop BOTH EYES QID PRN [History] Hydrocortisone 1% CREAM [Cortaid] 1 appl TP TID 01/17/17 [History] Ipratropium/Albuterol Neb [Duoneb] 3 ml IH QID PRN 01/17/17 [History] Ipratropium/Albuterol Sulfate [Combivent Respimat Inhal [place]] 1 puff IH QID PRN 01/17/17 [History] Melatonin [Melatin] 12 mg PO HS 01/17/17 [History] Omeprazole [PriLOSEC] 20 mg PO DAILY 01/17/17 [History] Rivaroxaban [Xarelto] 20 mg PO DAILY 01/17/17 [History] Sildenafil Citrate [Viagra] 25 mg PO DAILY PRN 01/17/17 [History] Chlordiazepoxide [Librium] 25 mg PO AD #12 01/19/17 [Rx] Thiamine (B-1) [Vitamin B-1] 100 mg PO DAILY #30 tab 01/19/17 [Rx] Allergies/Adverse Reactions: Allergies No Known Allergies Allergy (Verified 01/17/17 18:09) Procedures/tests Complete & Pending: Procedures Performed prior 72 hours Category Date Time Status EKG [ECG 12 lead ECG] [ECG] AM 0600 Y 01/18/17 06:00 Completed Date of admission: 01/17/17 23:33 Primary care physician: PCP NO Consults: 01/18/17 01:37 Consult to [facility] [CONS] Routine Reason for SW Consult: ETOH abuse 01/18/17 07:59 Consult to Psychiatry [CONS] Routine Consulting Provider: Psychiatry Aury Reason for Consult: Suicidal ideation Call Completed: No Discharging clinician: Celia Ace Anticipated date of discharge: 01/19/17 (txr to 1A when available) - Patient Status Disposition: Transfer Psychiatric Hosp Condition: Fair Functional capacity at discharge: independent ambulation Overall status at discharge: patient is progressing back to baseline - Discharge Instructions Follow Up With: NO,PCP [Primary Care Provider] - Additional Instructions: Sending directly to inpatient psychiatric care. Follows with [facility] gold team - Diet and Activity Activity: increase activity as tolerated Diet: low fat, low cholesterol, low salt diet Hospital course: Mr. Bernal is a 51 year old male with past medical history of COPD, hypertension, seizures, depression, PTSD, alcohol abuse. Patient presented to the emergency department chief complaint of suicidal ideations. Patient stating that 2 months prior to presentation, he found his uncle with him he was living for 10 years and the bathroom unresponsive and he tried to do CPR but could not save him. He subsequently blames himself for his uncle's . He states that he gets these thoughts like a movie replying that incident and he cannot stop it. He initially endorsed drinking 6 beers per day however upon admission, patient stating he drank 12 beers per day as well as several mixed drinks. He also endorsed left lower quadrant abdominal pain. He was admitted to the hospitalist service for further evaluation and management. Abdominal CT unremarkable for acute processes. Patient continued to endorse suicidal ideation throughout this admission so he was maintained on suicide precautions. His left lower quadrant abdominal pain resolved and he was able to tolerate a regular diet. Patient remained alert and oriented 3 and he was observed over the course of 2 days and during those days, he scored very low on CIWA state was medically cleared to be transferred down to inpatient psychiatric unit once a bed became available. He was placed on a low dose Librium taper for seizure precautions though clinical suspicion low. He was discharged down to inpatient psychiatric care in stable condition. ITS Impressions Abdomen/Pelvis CT 01/17/17 21:07 IMPRESSION: Abnormal appearance of the lung bases with evidence of some fibrosis and ground-glass opacity, possibly chronic. Correlation for acute pulmonary symptoms is recommended. Cholelithiasis. Very small hiatal hernia. No acute noncontrast abnormality identified. D/ / Marguerite Oquendo Cha, MD / Marguerite Oquendo Cha, MD Interpreting Provider: Marguerite Oquendo Cha, MD - Time Spent with Patient Total time spent providing and/or coordinating discharge services: - Constitutional Vitals: Temp Pulse Resp BP Pulse Ox 99.1 F 75 16 106/70 94 01/19/17 08:03 01/19/17 08:03 01/19/17 08:03 01/19/17 08:03 01/19/17 08:03 General appearance: Present: A&O X 3, pleasant, no acute distress, answers questions appropriately - Head Head exam: Present: atraumatic, normocephalic - Eye Eye exam: Present: PERRL, conjuntiva pink, sclera anicteric Pupils: Present: PERRL - Neck Neck exam general surgery: Present: supple, trachea midline. Absent: lymphadenopathy - Respiratory Respiratory exam: Present: CTAB. Absent: accessory muscle use, rales, respiratory distress, rhonchi, wheezes - Cardiovascular Cardiovascular exam: Present: RRR, +S1, +S2. Absent: diastolic murmur, gallop, rubs, systolic murmur - GI/Abdominal GI/Abdominal exam: Present: normal bowel sounds, soft, no peritoneal signs. Absent: distended, tenderness - Extremities Exam Extremities exam: Present: warm, radial pulses palpable and symetrical. Absent : calf tenderness, cyanotic, pedal edema - Neurological Exam Neurological exam: Present: alert, CN II-XII intact, oriented X3, no focal deficits, strengths equal and symetr throughout. Absent: pronater drift, facial droop, speech deficit - Psychiatric Psychiatric exam: Present: depressed, suicidal ideation - Expanded Psychiatric Exam Focused psych exam: Present: perseverating, restlessness - Skin Skin exam: Present: dry, intact, pallor, warm - VTE Reasons for not Prescribing Prophylaxis: Treatment not Indicated - Low risk for VTE
[2017-01-19] MEDS: Melatonin 3 MG TABLET PO SCH (20:02)
[2017-01-19] MEDS: Latanoprost 2.5 ML BOTTLE BOTH EYES SCH (20:04)
[2017-01-20] MEDS: *HR* Rivaroxaban 10 MG TABLET PO SCH (08:56)
[2017-01-20] MEDS: Thiamine (B-1) 100 MG TABLET PO SCH (08:56)
[2017-01-20] MEDS: Lisinopril 20 MG TABLET PO SCH (08:56)
[2017-01-20] MEDS: Vitamin B Complex/Vit C/Vit E 1 EACH TABLET PO SCH (08:56)
[2017-01-20] MEDS: risperiDONE 0.25 MG TABLET PO SCH ×2 (08:56→20:29)
[2017-01-20] MEDS: FLUoxetine 20 MG CAPSULE PO SCH (08:56)
[2017-01-20] MEDS: Calcium 600 + Vit D PO SCH ×2 (08:59→20:30)
--- NOTE | 2017-01-20 10:10 | Electrocardiograph Report ---
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
--- NOTE | 2017-01-20 12:27 | Internal Med Progress Note ---
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 He had been living with his uncle for the past 10 years when he found him unresponsive in the bathroom and was unable to revive him with CPR. He blames himself for his and states that he is constantly reminded of this traumatic event. He feels as if he has no one and has no reason to live for. He is at an extremely high risk for suicide. He is not future-oriented and did not want to discuss any issues regarding the future. He denies a specific plan. Psychiatry is onboard and have recommended inpatient psychiatric care. There are currently no beds at [facility], [facility] He is medically stable once a location is determined. (3) Hypertension Current Visit: Yes Status: Chronic Assessment and plan: Was hypertensive at times however his blood pressures are normal today. He is not as emotionally upset. We will continue to monitor, no indication for medication change at this time. Qualifiers: Hypertension type: essential hypertension Qualified Code(s): I10 - Essential (primary) hypertension (4) Tobacco abuse Current Visit: Yes Status: Chronic Assessment and plan: Did not want to discuss smoking cessation. Declined nicotine patches. (5) PTSD (post-traumatic stress disorder) Current Visit: No Status: Chronic Assessment and plan: See prior note for at high risk for suicide (6) Depression Current Visit: Yes Status: Chronic Qualifiers: Depression Type: major depressive disorder Major depression recurrence: recurrent Active/Remission status: currently active Major depression episode severity: severe Psychotic features: without psychotic features Qualified Code(s): F33.2 - Major depressive disorder, recurrent severe without psychotic features (7) DVT prophylaxis Current Visit: No Status: Acute Assessment and plan: home Xarelto continued (8) Seizures Current Visit: No Status: Ruled-out Assessment and plan: patient stating that he has had seizures when he has attempted to withdrawal from alcohol in the past. He was unable to tell me how many times he has seized and when his last seizure was. He told me that he drinks a 12 pack of beer and several mixed drinks daily. Lower dose Librium was added to his regimen- as it could take some time to get him placed, will go ahead and initiate taper now. 25mg TIDx2 days, 25mg BIDx2 days, 25mg daily x2 days. The likelihood of DTs at this point is quite low given his low CIWA scoring. (9) COPD (chronic obstructive pulmonary disease) Current Visit: Yes Status: Chronic Assessment and plan: No acute exacerbation. Patient denies shortness of breath above his norm. Qualifiers: COPD type: emphysema Emphysema type: unspecified Qualified Code(s): J43.9 - Emphysema, unspecified (10) Alcohol abuse Current Visit: Yes Status: Chronic (11) Glaucoma Current Visit: Yes Status: Chronic Qualifiers: Glaucoma type: unspecified Laterality: unspecified laterality Qualified Code(s): H40.9 - Unspecified glaucoma (12) LLQ abdominal pain Current Visit: Yes Status: Resolved Assessment and plan: Patient currently denies abdominal pain. He has been able to take a little bit of food and drink since admission, continue antiemetics and diet as tolerated. - Subjective Interval history: Patient seen and examined. On examination, patient resting supine in bed ordering his lunch menu. He states that he is feeling better. He states that he is not eating very much. He states that he is still wanting to harm himself and that he still feels hopeless. - Constitutional Vitals: Temp Pulse Resp BP Pulse Ox 97.7 F 69 16 129/90 97 01/20/17 11:02 01/20/17 11:02 01/20/17 11:02 01/20/17 11:02 01/20/17 11:02 General appearance: Present: A&O X 3, pleasant, no acute distress, answers questions appropriately - Head Head exam: Present: atraumatic, normocephalic - Eye Eye exam: Present: PERRL, conjuntiva pink, sclera anicteric Pupils: Present: PERRL - Neck Neck exam general surgery: Present: supple, trachea midline. Absent: lymphadenopathy - Respiratory Respiratory exam: Present: decreased breath sounds. Absent: accessory muscle use, rales, respiratory distress, rhonchi, wheezes - Cardiovascular Cardiovascular exam: Present: RRR, +S1, +S2. Absent: diastolic murmur, gallop, rubs, systolic murmur - GI/Abdominal GI/Abdominal exam: Present: normal bowel sounds, soft, no peritoneal signs. Absent: distended, tenderness - Extremities Exam Extremities exam: Present: warm, radial pulses palpable and symetrical. Absent : calf tenderness, cyanotic, pedal edema - Neurological Exam Neurological exam: Present: alert, CN II-XII intact, oriented X3, no focal deficits, strengths equal and symetr throughout. Absent: pronater drift, facial droop, speech deficit - Psychiatric Psychiatric exam: Present: depressed, flat affect, suicidal ideation - Expanded Psychiatric Exam Focused psych exam: Present: perseverating - Skin Skin exam: Present: dry, intact, pallor, warm Internal Medicine: Result - Labs CBC & Chem 7: 01/18/17 04:31 01/19/17 04:29 - VTE Reasons for not Prescribing Prophylaxis: Treatment not Indicated - Low risk for VTE Consult Discharge Plan - Plan Instructions: How to Stop Smoking (DC), Chronic Obstructive Pulmonary Disease ( DC), Abuse of Alcohol (DC), At-Risk Alcohol Use (DC) Additional Instructions: Sending directly to inpatient psychiatric care. Follows with [facility] gold team Referrals: NO,PCP [Primary Care Provider] - Prescriptions: Chlordiazepoxide [Librium] 25 mg PO AD #12 Thiamine (B-1) [Vitamin B-1] 100 mg PO DAILY #30 tab
[2017-01-20] MEDS ORDERED: Acetaminophen 325 MG TABLET PO PRN (20:00)
[2017-01-20] MEDS: Acetaminophen 325 MG TABLET PO PRN (20:28)
[2017-01-20] MEDS: Melatonin 3 MG TABLET PO SCH (20:29)
[2017-01-20] MEDS: Latanoprost 2.5 ML BOTTLE BOTH EYES SCH (20:30)
[2017-01-21] MEDS: *HR* Rivaroxaban 10 MG TABLET PO SCH (07:29)
[2017-01-21] MEDS: Thiamine (B-1) 100 MG TABLET PO SCH (07:29)
[2017-01-21] MEDS: Vitamin B Complex/Vit C/Vit E 1 EACH TABLET PO SCH (07:29)
[2017-01-21] MEDS: FLUoxetine 20 MG CAPSULE PO SCH (07:29)
[2017-01-21] MEDS: Calcium 600 + Vit D PO SCH ×2 (07:30→22:06)
[2017-01-21] MEDS: Lisinopril 20 MG TABLET PO SCH (07:30)
[2017-01-21] MEDS: risperiDONE 0.25 MG TABLET PO SCH ×2 (07:41→22:05)
[2017-01-21 09:58] LABS: Amphetamine Screen,Urine Negative ng/mL (Cutoff=1000); Barbiturate Screen,Urine Negative ng/mL (Cutoff=200); Benzodiazepines Screen,Urine Positive ng/mL (Cutoff=200); Cannabinoid Screen,Urine Negative ng/mL (Cutoff = 50)
[2017-01-21 09:59] LABS: Cocaine Screen,Urine Negative ng/mL (Cutoff= 300); Opiate Screen,Urine Negative ng/mL (Cutoff=300); Phencyclidine Screen,Urine Negative ng/mL (Cutoff=25)
[2017-01-21 10:07] LABS: Eosinophils # 0.2 K/mcL (0.0-0.6); Eosinophils % 6.5 %; Hematocrit 43.1 % (37.5-50.1); Hemoglobin 13.8 g/dL (12.9-16.9); Immature Granulocytes % 0.7 % (0-4); Lymphocytes # 0.8 K/mcL (0.6-4.6); Lymphocytes % 25.1 %; Mean Corpuscular Hemoglobin 29.3 pg (28.0-33.3); Mean Corpuscular Volume 91.5 fL (83.0-100.0); Mean Platelet Volume 10.2 fL (9.4-12.4); Monocytes # 0.4 K/mcL (0.0-1.3); Monocytes % 13.7 %; Neutrophils # 1.6 K/mcL (1.6-8.9); Platelet Count 200 K/mcL (140-400); Red Blood Count 4.71 M/mcL (4.19-5.50); Red Cell Distribution Width 20.5 % (11.5-14.5)
[2017-01-21 10:08] LABS: BUN/Creatinine Ratio 10 (6-26); Blood Urea Nitrogen 9 mg/dL (8-26); Calcium 9.3 mg/dL (8.6-10.8); Carbon Dioxide 31 mEq/L (19-29); Chloride 103 mEq/L (98-109); Glucose 87 mg/dL (70-99); Osmolality,Calculated 284 (280-300); Potassium 3.6 mEq/L (3.5-4.5); Sodium 138 mEq/L (136-145); eGFR For African Americans > 60 (> 60); eGFR For Non-African Americans > 60 (> 60)
--- NOTE | 2017-01-21 10:34 | Internal Med Progress Note ---
<Portillo Hanna - Last Filed: 01/21/17 13:53> Date of Encounter: 01/21/17 Time of Encounter: 08:30 - Assessment and plan (1) Pneumonia Current Visit: Yes Status: Acute Assessment and plan: -SOB with prominent crackles heard in the left lower lobe suspicious for Aspiration Pneumonia -Patient has history of alcoholism with vomiting and is at high risk for PNA -CXR So far does not show consolidation -HR normal but treated with BBs -Cancel discharge orders -Blood cultures x2 -Will treat empirically with Vanc, Zosyn, and Levaquin Qualifiers: Pneumonia type: aspiration pneumonia Aspiration pneumonia type: unspecified Laterality: left Lung location: lower lobe of lung Qualified Code(s): J69.0 - Pneumonitis due to inhalation of food and vomit (2) At high risk for suicide Current Visit: Yes Status: Acute Assessment and plan: 01/21 -As before, patient is at high risk for suicide and has discussed potential plans. -No longer medically clear for transport -Will continue 1:1 monitoring and defer to psychiatry for recs 01/20 patient stating he was deployed for 3 years to [place] and states that when he got back his PTSD was so severe that he got a divorce at which time he moved in with his uncle. He had been living with his uncle for the past 10 years when he found him unresponsive in the bathroom and was unable to revive him with CPR. He blames himself for his and states that he is constantly reminded of this traumatic event. He feels as if he has no one and has no reason to live for. He is at an extremely high risk for suicide. He is not future-oriented and did not want to discuss any issues regarding the future. He denies a specific plan. Psychiatry is onboard and have recommended inpatient psychiatric care. There are currently no beds at [facility], [facility]. He is medically stable once a location is determined. (3) Suicidal ideation Current Visit: Yes Status: Acute Assessment and plan: As above (4) Alcohol abuse Current Visit: Yes Status: Chronic Assessment and plan: -On CIWA protocol, current score 1 -Hx of seizures with ETOH withdrawal -Continue protocol, and Librium taper. (5) Depression Current Visit: Yes Status: Chronic Assessment and plan: As above. Psych on board Qualifiers: Depression Type: major depressive disorder Major depression recurrence: recurrent Active/Remission status: currently active Major depression episode severity: severe Psychotic features: without psychotic features Qualified Code(s): F33.2 - Major depressive disorder, recurrent severe without psychotic features (6) COPD (chronic obstructive pulmonary disease) Current Visit: Yes Status: Chronic Assessment and plan: No acute exacerbation. Patient denies shortness of breath above his norm. Qualifiers: COPD type: emphysema Emphysema type: unspecified Qualified Code(s): J43.9 - Emphysema, unspecified (7) Hypertension Current Visit: Yes Status: Chronic Assessment and plan: 01/21 -Blood pressure has remained largely in good control, but has labile. Likely related to anxiety. -Continue current medication regimen and monitor 01/20 Was hypertensive at times however his blood pressures are normal today. He is not as emotionally upset. We will continue to monitor, no indication for medication change at this time. Qualifiers: Hypertension type: essential hypertension Qualified Code(s): I10 - Essential (primary) hypertension (8) PTSD (post-traumatic stress disorder) Current Visit: No Status: Chronic Assessment and plan: See prior note for at high risk for suicide (9) Seizures Current Visit: No Status: Ruled-out Assessment and plan: 01/21 The likelihood of seizures is extremely low, however we will finish the initiated taper of Librium 01/20 patient stating that he has had seizures when he has attempted to withdrawal from alcohol in the past. He was unable to tell me how many times he has seized and when his last seizure was. He told me that he drinks a 12 pack of beer and several mixed drinks daily. Lower dose Librium was added to his regimen- as it could take some time to get him placed, will go ahead and initiate taper now. 25mg TIDx2 days, 25mg BIDx2 days, 25mg daily x2 days. The likelihood of DTs at this point is quite low given his low CIWA scoring. - Subjective Interval history: The patient was lying in bed at time of exam. He said that he has been extremely depressed, and is still having suicidal ideations. He says that he is hearing a mumbling voice, but cannot discern any specific message or meaning behind them. He complains that he has been having shortness of breath when he gets up to shower or complete other tasks, which is alleviated by sitting down and resting - Constitutional Vitals: Temp Pulse Resp BP Pulse Ox 97.6 F 62 14 108/73 95 01/21/17 07:04 01/21/17 07:04 01/21/17 07:04 01/21/17 07:04 01/21/17 07:30 General appearance: Present: A&O X 3, pleasant, no acute distress, answers questions appropriately - Head Head exam: Present: atraumatic, normocephalic - Eye Eye exam: Present: PERRL, conjuntiva pink, sclera anicteric Pupils: Present: PERRL - Neck Neck exam general surgery: Present: supple, trachea midline. Absent: lymphadenopathy - Respiratory Respiratory exam: Present: rales. Absent: accessory muscle use, rhonchi, wheezes Additional comments: Inspiratory crackles noted on Left lower lobe - Cardiovascular Cardiovascular exam: Present: RRR, +S1, +S2. Absent: diastolic murmur, gallop, rubs, systolic murmur - GI/Abdominal GI/Abdominal exam: Present: normal bowel sounds, soft, no peritoneal signs. Absent: distended, tenderness - Extremities Exam Extremities exam: Present: warm, radial pulses palpable and symetrical. Absent : calf tenderness, cyanotic, pedal edema - Neurological Exam Neurological exam: Present: CN II-XII intact, oriented X3, no focal deficits. Absent: pronater drift, facial droop, speech deficit - Psychiatric Psychiatric exam: Present: depressed, flat affect, suicidal ideation. Absent: homicidal ideation, normal affect, normal mood - Skin Skin exam: Present: dry, intact Internal Medicine: Result - Labs CBC & Chem 7: 01/21/17 08:56 01/21/17 08:56 Labs: Short CBC 01/21/17 Range/Units 08:56 WBC 3.1 L (4.3-11.1) K/mcL Hgb 13.8 (12.9-16.9) g/dL Hct 43.1 (37.5-50.1) % Plt Count 200 (140-400) K/mcL Neutrophils # 1.6 (1.6-8.9) K/mcL BMP 01/21/17 08:56 Sodium 138 Potassium 3.6 Chloride 103 Carbon Dioxide 31 H BUN 9 Creatinine 0.86 Glucose 87 Calcium 9.3 - VTE Reasons for not Prescribing Prophylaxis: Treatment not Indicated - Low risk for VTE Consult Discharge Plan - Plan Instructions: How to Stop Smoking (DC), Chronic Obstructive Pulmonary Disease ( DC), Abuse of Alcohol (DC), At-Risk Alcohol Use (DC) Additional Instructions: Sending directly to inpatient psychiatric care. Follows with [place] gold team Referrals: NO,PCP [Primary Care Provider] - <Alfredo Delgado - Last Filed: 01/21/17 20:11> Date of Encounter: 01/21/17 - Constitutional Vitals: Temp Pulse Resp BP Pulse Ox 97.6 F 73 18 112/78 93 01/21/17 19:01 01/21/17 19:01 01/21/17 19:01 01/21/17 19:01 01/21/17 19:01 Internal Medicine: Result - Labs CBC & Chem 7: 01/21/17 08:56 01/21/17 08:56 - Attending Attestation I examined this patient and my medical decision-making was reviewed with the Resident Physician. I agree with the documented findings, disposition and treatment plan as described except to the extent set forth below. Noted that patient has a tendency for suicide. Was supposed to go to OR for further evaluation from psychiatry. Possibility of pneumonia which is hospital-acquired is extremely high. Patient needs intravenous antibiotics. If patient tries to leave AMA, he needs to be pink slipped. This issue has been discussed with the night physician glassware maker demonstrator.
[2017-01-21] MEDS: Piperacillin/Tazobactam 3.375 GM in D5% in Water (Mini-Bag+) 100 ML IVPB SCH (15:33)
[2017-01-21] MEDS: Vancomycin 1,250 MG in D5% in Water 250 ML IVPB SCH (15:34)
[2017-01-21] MEDS ORDERED: Vancomycin 1,000 MG in D5% in Water 250 ML IVPB SCH (18:00)
[2017-01-21] MEDS: Melatonin 3 MG TABLET PO SCH (22:05)
[2017-01-21] MEDS: Latanoprost 2.5 ML BOTTLE BOTH EYES SCH (22:06)
[2017-01-22] MEDS: Piperacillin/Tazobactam 3.375 GM in D5% in Water (Mini-Bag+) 100 ML IVPB SCH ×2 (01:40→15:48)
[2017-01-22] MEDS: Vancomycin 1,250 MG in D5% in Water 250 ML IVPB SCH (01:40)
[2017-01-22 06:44] LABS: BUN/Creatinine Ratio 10 (6-26); Blood Urea Nitrogen 9 mg/dL (8-26); Calcium 8.7 mg/dL (8.6-10.8); Carbon Dioxide 28 mEq/L (19-29); Chloride 105 mEq/L (98-109); Glucose 104 mg/dL (70-99); Osmolality,Calculated 283 (280-300); Potassium 3.3 mEq/L (3.5-4.5); Sodium 137 mEq/L (136-145); eGFR For African Americans > 60 (> 60); eGFR For Non-African Americans > 60 (> 60)
[2017-01-22 06:52] LABS: Basophils % 0.8 %; Eosinophils # 0.2 K/mcL (0.0-0.6); Eosinophils % 5.5 %; Immature Granulocytes % 0.8 % (0-4); Lymphocytes # 0.8 K/mcL (0.6-4.6); Lymphocytes % 19.8 %; Mean Corpuscular HGB Conc 32.3 g/dL (31.6-35.5); Mean Corpuscular Hemoglobin 29.4 pg (28.0-33.3); Mean Corpuscular Volume 90.9 fL (83.0-100.0); Mean Platelet Volume 10.3 fL (9.4-12.4); Monocytes # 0.6 K/mcL (0.0-1.3); Monocytes % 15.8 %; Neutrophils # 2.3 K/mcL (1.6-8.9); Platelet Count 211 K/mcL (140-400); Red Blood Count 3.85 M/mcL (4.19-5.50); Red Cell Distribution Width 20.4 % (11.5-14.5); Segmented Neutrophils % 57.3 %
[2017-01-22 06:54] LABS: Hemoglobin 11.3 g/dL (12.9-16.9)
[2017-01-22] MEDS ORDERED: Levofloxacin 750 MG/150 ML 750 MG/150 ML BAG IVPB SCH (09:00)
[2017-01-22] MEDS: Calcium 600 + Vit D PO SCH ×2 (09:35→23:39)
[2017-01-22] MEDS: Vitamin B Complex/Vit C/Vit E 1 EACH TABLET PO SCH (09:36)
[2017-01-22] MEDS: Thiamine (B-1) 100 MG TABLET PO SCH (09:36)
[2017-01-22] MEDS: *HR* Rivaroxaban 10 MG TABLET PO SCH (09:36)
[2017-01-22] MEDS: Lisinopril 20 MG TABLET PO SCH (09:37)
[2017-01-22] MEDS: FLUoxetine 20 MG CAPSULE PO SCH (09:37)
[2017-01-22] MEDS: risperiDONE 0.25 MG TABLET PO SCH ×2 (09:37→20:21)
--- NOTE | 2017-01-22 13:53 | Discharge Summary ---
<Portillo Hanna - Last Filed: 01/22/17 14:00> Date of Encounter: 01/22/17 Time of Encounter: 09:00 - Discharge Diagnosis (1) Suicidal ideation Priority: Primary Status: Acute Comments: -This patient has been seen and evaluated by psychiatry, and it is recommended that he go to an inpatient facility. -The patient is still having suicidal ideations, and told his sitter earlier this morning that if his silverware is left in his room he might hurt himself with it. -He is anxious about going to the [facility] because of a previous admission there that he felt was not helpful -We will consult psychiatry again to determine appropriate placement options. -The patient is medically clear for discharge to psychiatric facility. (2) Pneumonia Priority: Primary Status: Acute Comments: -SOB with prominent crackles heard in the left lower lobe suspicious for Aspiration Pneumonia -Patient has history of alcoholism with vomiting and is at high risk for PNA -CXR So far does not show consolidation -HR normal but treated with BBs -Blood cultures currently negative -Patient is being transfered to psychiatric facility. Will send on PO Ron and Alida for treatment. -Patient should follow up with primary care in 2 weeks for examination Qualifiers: Pneumonia type: aspiration pneumonia Aspiration pneumonia type: unspecified Laterality: left Lung location: lower lobe of lung Qualified Code(s): J69.0 - Pneumonitis due to inhalation of food and vomit (3) At high risk for suicide Priority: Primary Status: Acute Comments: See above note for suicidal ideations. -As before, patient is at high risk for suicide and has discussed potential plans. -Psychiatry will consult and we will place at a psychiatric facility. (4) Alcohol abuse Priority: Primary Status: Chronic Comments: Patient CIWA score 1. -History of seizures is present, however the patient has not had any indication of seizure activity throughout his admission. -We will discharge the patient to psych facility, where alcohol dependence may be addressed. (5) Depression Priority: Secondary Status: Chronic Comments: See above Qualifiers: Depression Type: major depressive disorder Major depression recurrence: recurrent Active/Remission status: currently active Major depression episode severity: severe Psychotic features: without psychotic features Qualified Code(s): F33.2 - Major depressive disorder, recurrent severe without psychotic features (6) COPD (chronic obstructive pulmonary disease) Priority: Secondary Status: Chronic Comments: Well controlled at this time, continue home medications Qualifiers: COPD type: emphysema Emphysema type: unspecified Qualified Code(s): J43.9 - Emphysema, unspecified (7) Hypertension Priority: Secondary Status: Chronic Comments: Well controlled at this time, continue home medications Qualifiers: Hypertension type: essential hypertension Qualified Code(s): I10 - Essential (primary) hypertension - Discharge Medications Prescriptions: Cefpodoxime Proxetil 200 mg PO BID #10 tablet levoFLOXacin [Levaquin] 750 mg PO DAILY #5 tablet Home Medications: Brimonidine Tartrate [Alphagan P] 1 drop LEFT EYE BID 05/06/15 [History] Latanoprost [Xalatan] 1 drop BOTH EYES HS 05/06/15 [History] Docusate Sodium [Colace] 100 mg PO BID PRN 05/29/15 [History] FLUoxetine HCl [Prozac] 40 mg PO DAILY 05/29/15 [History] Albuterol Sulfate [Proair Hfa] 2 puff IH QID PRN 11/02/16 [History] Calcium Carbonate/Vitamin D3 [Calcium 600 + Vit D Tablet] 1 tab PO BID 11/02/16 [History] Ferrous Sulfate [Iron] 325 mg PO BID 11/02/16 [History] RisperiDONE [Risperdal] 0.5 mg PO BID 11/02/16 [History] Atorvastatin [Lipitor] 10 mg PO HS #30 tablet 11/04/16 [Rx] Clopidogrel [Plavix] 75 mg PO DAILY #30 tablet 11/04/16 [Rx] Lisinopril [Zestril] 20 mg PO DAILY #30 tablet 11/04/16 [Rx] Metoprolol [Lopressor] 25 mg PO BID #30 tablet 11/04/16 [Rx] Prazosin [Minipress] 2 mg PO HS #30 capsule 11/04/16 [Rx] Carboxymethylcellulose Sodium [Refresh Liquigel] 1 drop BOTH EYES QID PRN [History] Hydrocortisone 1% CREAM [Cortaid] 1 appl TP TID 01/17/17 [History] Ipratropium/Albuterol Neb [Duoneb] 3 ml IH QID PRN 01/17/17 [History] Ipratropium/Albuterol Sulfate [Combivent Respimat Inhal [place]] 1 puff IH QID PRN 01/17/17 [History] Melatonin [Melatin] 12 mg PO HS 01/17/17 [History] Omeprazole [PriLOSEC] 20 mg PO DAILY 01/17/17 [History] Rivaroxaban [Xarelto] 20 mg PO DAILY 01/17/17 [History] Sildenafil Citrate [Viagra] 25 mg PO DAILY PRN 01/17/17 [History] Thiamine (B-1) [Vitamin B-1] 100 mg PO DAILY #30 tab 01/19/17 [Rx] Cefpodoxime Proxetil 200 mg PO BID #10 tablet 01/22/17 [Rx] Potassium Chloride 40 meq PO DAILY 01/22/17 [Rx] levoFLOXacin [Levaquin] 750 mg PO DAILY #5 tablet 01/22/17 [Rx] Allergies/Adverse Reactions: Allergies No Known Allergies Allergy (Verified 01/17/17 18:09) Date of admission: 01/21/17 10:26 Primary care physician: PCP NO - Patient Status Disposition: Transfer Psychiatric Hosp Condition: Fair Functional capacity at discharge: independent ambulation Overall status at discharge: patient is not back to baseline - Discharge Instructions Instructions: How to Stop Smoking (DC), Chronic Obstructive Pulmonary Disease ( DC), Abuse of Alcohol (DC), At-Risk Alcohol Use (DC) Follow Up With: NO,PCP [Primary Care Provider] - Additional Instructions: Sending directly to inpatient psychiatric care. Follows with [facility] team - Diet and Activity Activity: increase activity as tolerated Diet: advance to your usual diet Hospital course: Mr. Bernal is a 51 year old male with history of depression, anxiety, suicidal ideations, COPD, and alcohol abuse. He presented to the ED on 01/18 for depression with suicidal ideations. He lived with his uncle for 10 years, and about two months ago found his uncle unresponsive in the bathroom at home and was unable to resuscitate him. He feels as though it is his fault, and he is to blame for his uncle's . He's had a history of attempted suicides in the past, and has been hospitalized previously for suicidal ideations. Additionally , he admitted to excessive use of alcohol as a means to "self-medicate." He stated that he drinks about 12 beers per day, and several mixed drinks. He has had seizures due to alcohol withdrawal previously. He was admitted to the medical floor on 1:1 and [facility] protocol for SI and high risk for alcohol withdrawal. Throughout his stay he has remained depressed, with flat affect, and admits to continued suicidal thoughts. He has additionally complained that he is hearing mumbling voices which are unintelligible to himself. Psychiatry recommended placement at an inpatient psychiatric facility, however he developed a left lower lobe pneumonia prior to discharge and his DC orders were cancelled. Blood cultures were taken and empiric IV antibiotic therapy was initiated. He has remained hemodynamically stable and afebrile, so he is prepared for discharge on oral antibiotics at this time pending placement at psychiatric facility. - Time Spent with Patient Total time spent providing and/or coordinating discharge services: - Constitutional Vitals: Temp Pulse Resp BP Pulse Ox 97.4 F L 72 14 106/78 97 01/22/17 10:55 01/22/17 10:55 01/22/17 10:55 01/22/17 10:55 01/22/17 10:55 General appearance: Present: A&O X 3, no acute distress, answers questions appropriately - Head Head exam: Present: atraumatic, normocephalic - Eye Eye exam: Present: PERRL, conjuntiva pink, sclera anicteric Pupils: Present: PERRL - Neck Neck exam general surgery: Present: supple, trachea midline. Absent: lymphadenopathy - Respiratory Respiratory exam: Present: rales. Absent: accessory muscle use, rhonchi, wheezes Additional comments: Prominent crackles heard in Left lower lobe of lung. - Cardiovascular Cardiovascular exam: Present: RRR, +S1, +S2. Absent: diastolic murmur, gallop, rubs, systolic murmur - GI/Abdominal GI/Abdominal exam: Present: normal bowel sounds, soft, no peritoneal signs. Absent: distended, tenderness - Extremities Exam Extremities exam: Present: warm, radial pulses palpable and symetrical. Absent : calf tenderness, cyanotic, pedal edema - Neurological Exam Neurological exam: Present: CN II-XII intact, oriented X3, no focal deficits. Absent: pronater drift, facial droop, speech deficit - Psychiatric Psychiatric exam: Present: anxious, depressed, flat affect, suicidal ideation Additional comments: The patient complains of auditory hallucinations in the form of voices which seem to be mumbling but without any meaningful message. - Skin Skin exam: Present: dry, intact - VTE Reasons for not Prescribing Prophylaxis: Treatment not Indicated - Low risk for VTE <Alfredo Delgado - Last Filed: 01/22/17 18:34> Date of Encounter: 01/22/17 Date of admission: 01/21/17 10:26 Primary care physician: PCP NO Consults: 01/22/17 13:53 Consult to Psychiatry [CONS] Routine Consulting Provider: Psych[facility] [place] Reason for Consult: Suicidal ideations Time Notified: 13:54 Call Completed: Yes Hospital course: Mr. Bernal is a 51 year old male - Time Spent with Patient Total time spent providing and/or coordinating discharge services: - Constitutional Vitals: Temp Pulse Resp BP Pulse Ox 98.0 F 72 14 139/89 97 01/22/17 15:40 01/22/17 15:40 01/22/17 15:40 01/22/17 15:40 01/22/17 15:40 - Attending Attestation I examined this patient and my medical decision-making was reviewed with the Resident Physician. I agree with the documented findings, disposition and treatment plan as described except to the extent set forth below. Medically clear pending psychiatric placement.
[2017-01-22] MEDS: Melatonin 3 MG TABLET PO SCH (20:23)
[2017-01-22] MEDS: Latanoprost 2.5 ML BOTTLE BOTH EYES SCH (20:23)
[2017-01-23] MEDS ORDERED: Aminoglycoside Consult 1 EACH MC ONE (07:33)
[2017-01-23] MEDS: *HR* Rivaroxaban 10 MG TABLET PO SCH (08:17)
[2017-01-23] MEDS: Lisinopril 20 MG TABLET PO SCH (08:17)
[2017-01-23] MEDS: FLUoxetine 20 MG CAPSULE PO SCH (08:17)
[2017-01-23] MEDS: Vitamin B Complex/Vit C/Vit E 1 EACH TABLET PO SCH (08:18)
[2017-01-23] MEDS: risperiDONE 0.25 MG TABLET PO SCH ×2 (08:18→21:38)
[2017-01-23] MEDS: Calcium 600 + Vit D PO SCH ×2 (08:21→21:40)
[2017-01-23] MEDS: Thiamine (B-1) 100 MG TABLET PO SCH (08:24)
--- NOTE | 2017-01-23 15:57 | Event Note ---
<Portillo Hanna - Last Filed: 01/23/17 15:53> Date of Encounter: 01/23/17 Time of Encounter: 10:00 This patient was medically cleared and discharged from the hospital pending psychiatric facility placement yesterday. Prior to discharge, psychiatry was consulted and I spoke with the second helper psychiatrist at [facility] 4:15pm regarding the patient. She stated that the patient should be kept on 1:1, continue his psychiatric medications, and await transfer to psychiatric facility. It was her understanding that he was not a candidate for placement at [address] due to his [facility] as [facility]. I saw the patieng briefly today, and he repeated his suicidal ideations to me. He said he feels worse than ever, and that he does not trust himself to be alone. The sitter also mentioned that the overnight sitter signed out to her that he had mentioned similar thoughts. The patient remains medically clear for transfer. <Alfredo Delgado - Last Filed: 01/23/17 18:23> Date of Encounter: 01/23/17 I examined this patient and my medical decision-making was reviewed with the Resident Physician. I agree with the documented findings, disposition and treatment plan as described except to the extent set forth below. psych input appreciated.
--- NOTE | 2017-01-23 16:49 | Consult Note ---
Date of Encounter: 01/23/17 Time of Encounter: 15:45 History of Present Illness Requesting Physician: Celia Thrasher Reason for consult: safia History of present illness: Mr. Bernal is a 51 year old male Mr. Bernal is a 51 year old male with history of depression, anxiety, suicidal ideations, COPD, and alcohol abuse admitted to the medicine floor for alcohol withdrawal and left lower lobe pneumonia. Patient is currently medically stabilzed and is awaiting transfer to a [facility] inpatient psychiatrist. Psychiatry reconsulted to re evaluate patient due worsening of depressive symptoms with suicidal ideations on current regimen. Patient seen at bedside this afternoon in no apparent distress. He was alert and oriented x3, calm, cooperative and well related. He reported a h/o depression and suicide attempts with multiple inpatient hospitalizations. He reported excerbation of his symptoms with suicidal ideations after he found his uncle unresponsive in the bathroom at home and was unable to resuscitate him 2 months ago. He reported prior poor response to multiple medications and unable to give names. He is compliant with his medications and denied any noted side effects. Reports moderate improvement in nightmares with Trazodone. Om review of symptoms, he denied other mood or psychotic symptoms including AH/VH/HI Recommendations: Continue One to One Increase Risperdal to 1mg p.o BID Increase Prozac 60mg daily Continue Prazosin 2mg Psychiatry will continue to [facility] for transfer CC: Celia Thrasher Past Med Surg Social Fam HX - Past Medical History Medical history: COPD, glaucoma, hypertension, seizures, TIA - Past Psychiatric History Psychiatric history: Reports: depression, prior suicide attempt, previous psychiatric hospitalization - Past Surgical History Surgical History: other - Social History Smoking Status: Current some day smoker Smokeless Tobacco Status: No Alcohol use: heavy Drug use: none - Family History Mother History Unknown: Yes Medications & Allergies Brimonidine Tartrate [Alphagan P] 1 drop LEFT EYE BID 05/06/15 [History] Latanoprost [Xalatan] 1 drop BOTH EYES HS 05/06/15 [History] Docusate Sodium [Colace] 100 mg PO BID PRN 05/29/15 [History] FLUoxetine HCl [Prozac] 40 mg PO DAILY 05/29/15 [History] Albuterol Sulfate [Proair Hfa] 2 puff IH QID PRN 11/02/16 [History] Calcium Carbonate/Vitamin D3 [Calcium 600 + Vit D Tablet] 1 tab PO BID 11/02/16 [History] Ferrous Sulfate [Iron] 325 mg PO BID 11/02/16 [History] RisperiDONE [Risperdal] 0.5 mg PO BID 11/02/16 [History] Atorvastatin [Lipitor] 10 mg PO HS #30 tablet 11/04/16 [Rx] Clopidogrel [Plavix] 75 mg PO DAILY #30 tablet 11/04/16 [Rx] Lisinopril [Zestril] 20 mg PO DAILY #30 tablet 11/04/16 [Rx] Metoprolol [Lopressor] 25 mg PO BID #30 tablet 11/04/16 [Rx] Prazosin [Minipress] 2 mg PO HS #30 capsule 11/04/16 [Rx] Carboxymethylcellulose Sodium [Refresh Liquigel] 1 drop BOTH EYES QID PRN [History] Hydrocortisone 1% CREAM [Cortaid] 1 appl TP TID 01/17/17 [History] Ipratropium/Albuterol Neb [Duoneb] 3 ml IH QID PRN 01/17/17 [History] Ipratropium/Albuterol Sulfate [Combivent Respimat Inhal [place]] 1 puff IH QID PRN 01/17/17 [History] Melatonin [Melatin] 12 mg PO HS 01/17/17 [History] Omeprazole [PriLOSEC] 20 mg PO DAILY 01/17/17 [History] Rivaroxaban [Xarelto] 20 mg PO DAILY 01/17/17 [History] Sildenafil Citrate [Viagra] 25 mg PO DAILY PRN 01/17/17 [History] Thiamine (B-1) [Vitamin B-1] 100 mg PO DAILY #30 tab 01/19/17 [Rx] Cefpodoxime Proxetil 200 mg PO BID #10 tablet 01/22/17 [Rx] Potassium Chloride 40 meq PO DAILY 01/22/17 [Rx] levoFLOXacin [Levaquin] 750 mg PO DAILY #5 tablet 01/22/17 [Rx] Allergies No Known Allergies Allergy (Verified 01/17/17 18:09) Review of Systems Constitutional: Denies: fever, chills, weakness, weight change Eyes: Denies: eye pain, vision change Ears, Nose, Throat: Denies: ear pain, throat pain, dental pain, hearing loss, congestion Cardiovascular: Denies: chest pain, palpitations, dyspnea on exertion Respiratory: Denies: cough, dyspnea, wheezes Gastrointestinal: Denies: abdominal pain, nausea, vomiting, diarrhea, constipation Genitourinary male: Denies: urgency, dysuria, frequency, genital lesions Genitourinary female: Denies: urgency, dysuria, frequency, abnormal menses, dyspareunia Musculoskeletal: Denies: joint swelling, joint pain Integumentary: Denies: rash, lesions, pruritus Neurological: Denies: headache, weakness, numbness, memory loss Endocrine: Denies: fatigue, heat or cold intolerance Hematologic/Lymphatic: Denies: easy bruising, lymphadenopathy Allergic/Immunologic: Denies: urticaria, itchy eyes Mental Status Exam Patient orientation: Yes Person, Yes Time, Yes Place Level of alertness: Alert Patient appearance: Appropriate, Well Groomed Behavior: calm, cooperative Psychomotor activity: Normal Eye contact: Maintains Eye Contact Mood description: Depressed Affect description: congruent with mood Speech pattern: Normal rate, Normal rhythm, Normal tone Speech volume: Normal Thought process: Linear, Goal Oriented Thought content: Yes Suicidal ideation, No Homicidal ideation, No Overt delusions Perceptual disturbances: No Auditory hallucinations, No Visual hallucinations Attention span: Capable of Focused Attention Memory description: Grossly Intact Patient reliability: Reliable Historian Intelligence estimate: Average Judgment: Limited Insight: Partial Results - Vital Signs Vital signs: Temp Pulse Resp BP Pulse Ox 98.1 F 65 16 141/96 96 01/23/17 11:23 01/23/17 11:23 01/23/17 11:23 01/23/17 11:23 01/23/17 07:56 - Labs Labs: Laboratory Last Values WBC 4.0 K/mcL (4.3-11.1) L 01/22/17 05:33 RBC 3.85 M/mcL (4.19-5.50) L 01/22/17 05:33 Hgb 11.3 g/dL (12.9-16.9) L D 01/22/17 05:33 Hct 35.0 % (37.5-50.1) L 01/22/17 05:33 MCV 90.9 fL (83.0-100.0) 01/22/17 05:33 MCH 29.4 pg (28.0-33.3) 01/22/17 05:33 MCHC 32.3 g/dL (31.6-35.5) 01/22/17 05:33 RDW 20.4 % (11.5-14.5) H 01/22/17 05:33 Plt Count 211 K/mcL (140-400) 01/22/17 05:33 MPV 10.3 fL (9.4-12.4) 01/22/17 05:33 Immature Gran % 0.8 % (0-4) 01/22/17 05:33 Seg Neutrophils % 57.3 % 01/22/17 05:33 Lymphocytes % 19.8 % 01/22/17 05:33 Monocytes % 15.8 % 01/22/17 05:33 Eosinophils % 5.5 % 01/22/17 05:33 Basophils % 0.8 % 01/22/17 05:33 Neutrophils # 2.3 K/mcL (1.6-8.9) 01/22/17 05:33 Lymphocytes # 0.8 K/mcL (0.6-4.6) 01/22/17 05:33 Monocytes # 0.6 K/mcL (0.0-1.3) 01/22/17 05:33 Eosinophils # 0.2 K/mcL (0.0-0.6) 01/22/17 05:33 Basophils # 0.0 K/mcL (0.0-0.2) 01/22/17 05:33 Platelet Estimate Normal (Normal) 01/18/17 04:31 Anisocytosis 1+ (Not Present) A 01/18/17 04:31 Microcytosis Present (Not Present) A 01/18/17 04:31 Macrocytosis Present (Not Present) A 01/18/17 04:31 Target Cells 1+ (Not Present) A 01/18/17 04:31 Sodium 137 mEq/L (136-145) 01/22/17 05:33 Potassium 3.3 mEq/L (3.5-4.5) L 01/22/17 05:33 Chloride 105 mEq/L (98-109) 01/22/17 05:33 Carbon Dioxide 28 mEq/L (19-29) 01/22/17 05:33 BUN 9 mg/dL (8-26) 01/22/17 05:33 Creatinine 0.91 mg/dL (0.72-1.25) 01/22/17 05:33 Est GFR ( Amer) > 60 (> 60) 01/22/17 05:33 Est GFR (Non-Af Amer) > 60 (> 60) 01/22/17 05:33 BUN/Creatinine Ratio 10 (6-26) 01/22/17 05:33 Glucose 104 mg/dL (70-99) H 01/22/17 05:33 Calculated Osmolality 283 (280-300) 01/22/17 05:33 Calcium 8.7 mg/dL (8.6-10.8) 01/22/17 05:33 Magnesium 1.9 mg/dL (1.6-2.6) 01/19/17 04:29 C-Reactive Protein 13 mg/L (Less than 5) H 01/18/17 04:31 TSH 2.519 mcIU/mL (0.350-4.840) 01/17/17 18:55 Urine Color Yellow (Yellow) 01/17/17 20:23 Urine Clarity Clear (Clear) 01/17/17 20:23 Urine pH 5.5 pH Units (5.0-8.0) 01/17/17 20:23 Ur Specific [place] 1.023 (1.010-1.025) 01/17/17 20:23 Urine Protein Trace mg/dL (Neg-Trace) 01/17/17 20:23 Urine Glucose (UA) Normal mg/dL (Normal) 01/17/17 20:23 Urine Ketones 15 mg/dL (Negative) H 01/17/17 20:23 Urine Blood Negative (Negative) 01/17/17 20:23 Urine Nitrite Negative (Negative) 01/17/17 20:23 Urine Bilirubin Small (Negative) H 01/17/17 20:23 Urine Urobilinogen Normal mg/dL (Normal) 01/17/17 20:23 Ur Leukocyte Esterase Negative (Negative) 01/17/17 20:23 Urine Microscopic RBC 3-5 per hpf (0-3) H 01/17/17 20:23 Urine Microscopic WBC 0-3 per hpf (0-3) 01/17/17 20:23 Ur Squamous Epith Cells Moderate per lpf (None-Few) H 07/14/17 20:23 Urine Bacteria None Seen per hpf (None-Few) 01/17/17 20:23 Hyaline Casts None Seen per lpf (None-Few) 01/17/17 20:23 Salicylates < 5.0 mg/dL (15-30) L 01/17/17 18:55 Urine Opiates Screen Negative ng/mL (Izdidy=182) 01/17/17 07:50 Acetaminophen < 1.0 mcg/mL (10-30) L 01/17/17 18:55 Ur Barbiturates Screen Negative ng/mL (Zjbcjg=001) 01/17/17 07:50 Ur Phencyclidine Scrn Negative ng/mL (Cutoff=25) 01/17/17 07:50 Ur Amphetamines Screen Negative ng/mL (Dsmigg=6572) 01/17/17 07:50 U Benzodiazepines Scrn Negative ng/mL (Liiazr=968) 01/17/17 07:50 Urine Cocaine Screen Negative ng/mL (Cutoff= 300) 01/17/17 07:50 U Marijuana (THC) Screen Negative ng/mL (Cutoff = 50) 01/17/17 07:50 Ethyl Alcohol < 10 mg/dL (0-10) 01/17/17 18:55 Consult Discharge Plan - Plan Instructions: How to Stop Smoking (DC), Chronic Obstructive Pulmonary Disease ( DC), Abuse of Alcohol (DC), At-Risk Alcohol Use (DC) Additional Instructions: Sending directly to inpatient psychiatric care. [facility] Referrals: NO,PCP [Primary Care Provider] - Prescriptions: Cefpodoxime Proxetil 200 mg PO BID #10 tablet levoFLOXacin [Levaquin] 750 mg PO DAILY #5 tablet
[2017-01-23] MEDS: Melatonin 3 MG TABLET PO SCH (21:38)
[2017-01-23] MEDS: Latanoprost 2.5 ML BOTTLE BOTH EYES SCH (21:40)
[2017-01-24] MEDS: Lisinopril 20 MG TABLET PO SCH (08:13)
[2017-01-24] MEDS: FLUoxetine 20 MG CAPSULE PO SCH (08:13)
[2017-01-24] MEDS: Thiamine (B-1) 100 MG TABLET PO SCH (08:13)
[2017-01-24] MEDS: Vitamin B Complex/Vit C/Vit E 1 EACH TABLET PO SCH (08:14)
[2017-01-24] MEDS: *HR* Rivaroxaban 10 MG TABLET PO SCH (08:14)
[2017-01-24] MEDS: risperiDONE 0.25 MG TABLET PO SCH ×2 (08:15→21:11)
[2017-01-24] MEDS: Calcium 600 + Vit D PO SCH ×2 (08:18→21:20)
--- NOTE | 2017-01-24 17:26 | Event Note ---
Date of Encounter: 01/24/17 Time of Encounter: 17:24 patient is medically stable and awaiting for psychiatric transfer spoke with Ms Mann from [place]. she has faxed requests to 3 other [place] facilities where lock psych facility is available. awaiting for reply. Psych input appreciated.
[2017-01-24] MEDS: Melatonin 3 MG TABLET PO SCH (21:11)
[2017-01-24] MEDS: Latanoprost 2.5 ML BOTTLE BOTH EYES SCH (21:22)
[2017-01-25] MEDS: Calcium 600 + Vit D PO SCH ×2 (07:54→21:24)
[2017-01-25] MEDS: FLUoxetine 20 MG CAPSULE PO SCH (07:54)
[2017-01-25] MEDS: Thiamine (B-1) 100 MG TABLET PO SCH (07:55)
[2017-01-25] MEDS: risperiDONE 0.25 MG TABLET PO SCH ×2 (07:55→21:23)
[2017-01-25] MEDS: Vitamin B Complex/Vit C/Vit E 1 EACH TABLET PO SCH (07:55)
[2017-01-25] MEDS: *HR* Rivaroxaban 10 MG TABLET PO SCH (07:55)
[2017-01-25] MEDS: Lisinopril 20 MG TABLET PO SCH (07:55)
--- NOTE | 2017-01-25 17:10 | Event Note ---
Date of Encounter: 01/25/17 Time of Encounter: 17:04 51-year-old gentleman awaiting for psychiatric transfer. [facility] regarding transfer patient to their facility. Patient is medically clear awaiting for transfer to psychiatric facility.
[2017-01-25] MEDS: Melatonin 3 MG TABLET PO SCH (21:23)
[2017-01-25] MEDS: Latanoprost 2.5 ML BOTTLE BOTH EYES SCH (21:24)
[2017-01-26] MEDS: Vitamin B Complex/Vit C/Vit E 1 EACH TABLET PO SCH (09:09)
[2017-01-26] MEDS: *HR* Rivaroxaban 10 MG TABLET PO SCH (09:10)
[2017-01-26] MEDS: risperiDONE 0.25 MG TABLET PO SCH ×2 (09:10→21:12)
[2017-01-26] MEDS: Lisinopril 20 MG TABLET PO SCH (09:11)
[2017-01-26] MEDS: Calcium 600 + Vit D PO SCH ×2 (09:11→21:12)
[2017-01-26] MEDS: FLUoxetine 20 MG CAPSULE PO SCH (09:11)
[2017-01-26] MEDS: Thiamine (B-1) 100 MG TABLET PO SCH (09:11)
[2017-01-26] MEDS ORDERED: *HR* LORazepam 2 MG/ML VIAL IVP ONE (11:39)
[2017-01-26] MEDS ORDERED: *HR* LORazepam 0.5 MG TABLET PO ONE (12:13)
--- NOTE | 2017-01-26 17:42 | Event Note ---
Date of Encounter: 01/26/17 Time of Encounter: 17:40 Medically clear awaiting for psychiatric placement. I was informed by RN that teacher education director 7th grade social studies teacher told regarding [facility]. [facility] will [facility] contact [facility] tomorrow
[2017-01-26] MEDS: Melatonin 3 MG TABLET PO SCH (21:13)
[2017-01-26] MEDS: Latanoprost 2.5 ML BOTTLE BOTH EYES SCH (21:14)
[2017-01-27] MEDS: Vitamin B Complex/Vit C/Vit E 1 EACH TABLET PO SCH (09:26)
[2017-01-27] MEDS: FLUoxetine 20 MG CAPSULE PO SCH (09:26)
[2017-01-27] MEDS: Acetaminophen 325 MG TABLET PO PRN ×2 (09:27→19:59)
[2017-01-27] MEDS: Lisinopril 20 MG TABLET PO SCH (09:27)
[2017-01-27] MEDS: *HR* Rivaroxaban 10 MG TABLET PO SCH (09:27)
[2017-01-27] MEDS: Thiamine (B-1) 100 MG TABLET PO SCH (09:27)
[2017-01-27] MEDS: risperiDONE 0.25 MG TABLET PO SCH ×2 (09:27→20:56)
[2017-01-27] MEDS: Calcium 600 + Vit D PO SCH ×2 (09:33→21:08)
--- NOTE | 2017-01-27 13:34 | Consult Note ---
Date of Encounter: 01/30/17 Time of Encounter: 13:00 Assessment & Recommendation (1) Major depressive disorder with psychotic features Current visit: Yes Status: Acute Qualifiers: Major depression recurrence: recurrent Active/Remission status: currently active Major depression episode severity: severe Qualified Code(s): F33.3 - Major depressive disorder, recurrent, severe with psychotic symptoms (2) Alcohol dependence Current visit: Yes Status: Acute Qualifiers: Substance use status: uncomplicated Qualified Code(s): F10.20 - Alcohol dependence, uncomplicated (3) Depression Current visit: Yes Status: Chronic Qualifiers: Depression Type: major depressive disorder Major depression recurrence: recurrent Active/Remission status: currently active Major depression episode severity: severe Psychotic features: without psychotic features Qualified Code(s): F33.2 - Major depressive disorder, recurrent severe without psychotic features History of Present Illness Requesting Physician: Celia Thrasher Reason for consult: follow up requested History of present illness: Mr. Bernal is a 51 year old male with h/o depression, anxiety , suicidal ideations , alcohol use disorder and admitted to medical for alcohol withdrawl and pneumonia, copd. at present he admits still being depressed , hopless , anxious, sleep not so good and positive SI with plan to get heroin and OD. He is alert, oriented and not in any distress, mood is sad, affect appropriate to mood, th. process slow, th. content admits to auditory hallucinations, denies visual hallucinations, positive suicidal ideations and poor judgement. CC: Celia Thrasher Past Med Surg Social Fam HX - Past Medical History Medical history: COPD, glaucoma, hypertension, seizures, TIA - Past Psychiatric History Psychiatric history: Reports: anxiety, depression, prior suicide attempt Family psychiatric history: Yes Family History of Suicide: Unknown - Past Surgical History Surgical History: other - Social History Smoking Status: Current some day smoker Smokeless Tobacco Status: No Alcohol use: heavy Drug use: none - Family History Mother History Unknown: Yes Medications & Allergies Brimonidine Tartrate [Alphagan P] 1 drop LEFT EYE BID 05/06/15 [History] Latanoprost [Xalatan] 1 drop BOTH EYES HS 05/06/15 [History] Docusate Sodium [Colace] 100 mg PO BID PRN 05/29/15 [History] FLUoxetine HCl [Prozac] 40 mg PO DAILY 05/29/15 [History] Albuterol Sulfate [Proair Hfa] 2 puff IH QID PRN 11/02/16 [History] Calcium Carbonate/Vitamin D3 [Calcium 600 + Vit D Tablet] 1 tab PO BID 11/02/16 [History] Ferrous Sulfate [Iron] 325 mg PO BID 11/02/16 [History] RisperiDONE [Risperdal] 0.5 mg PO BID 11/02/16 [History] Atorvastatin [Lipitor] 10 mg PO HS #30 tablet 11/04/16 [Rx] Clopidogrel [Plavix] 75 mg PO DAILY #30 tablet 11/04/16 [Rx] Lisinopril [Zestril] 20 mg PO DAILY #30 tablet 11/04/16 [Rx] Metoprolol [Lopressor] 25 mg PO BID #30 tablet 11/04/16 [Rx] Prazosin [Minipress] 2 mg PO HS #30 capsule 11/04/16 [Rx] Carboxymethylcellulose Sodium [Refresh Liquigel] 1 drop BOTH EYES QID PRN [History] Hydrocortisone 1% CREAM [Cortaid] 1 appl TP TID 01/17/17 [History] Ipratropium/Albuterol Neb [Duoneb] 3 ml IH QID PRN 01/17/17 [History] Ipratropium/Albuterol Sulfate [Combivent Respimat Inhal [place]] 1 puff IH QID PRN 01/17/17 [History] Melatonin [Melatin] 12 mg PO HS 01/17/17 [History] Omeprazole [PriLOSEC] 20 mg PO DAILY 01/17/17 [History] Rivaroxaban [Xarelto] 20 mg PO DAILY 01/17/17 [History] Sildenafil Citrate [Viagra] 25 mg PO DAILY PRN 01/17/17 [History] Thiamine (B-1) [Vitamin B-1] 100 mg PO DAILY #30 tab 01/19/17 [Rx] Cefpodoxime Proxetil 200 mg PO BID #10 tablet 01/22/17 [Rx] Potassium Chloride 40 meq PO DAILY 01/22/17 [Rx] levoFLOXacin [Levaquin] 750 mg PO DAILY #5 tablet 01/22/17 [Rx] Allergies No Known Allergies Allergy (Verified 01/17/17 18:09) Review of Systems Psychiatric: Reports: suicidal ideation, auditory hallucinations, anhedonia, hopelessness Mental Status Exam Patient orientation: Yes Person, Yes Place Level of alertness: Alert Patient appearance: Appropriate Behavior: cooperative Psychomotor activity: Slowed Eye contact: Minimal Contact Mood description: Depressed Affect description: congruent with mood, dysphoric Speech pattern: Slowed Speech volume: Soft/Quiet Thought process: Intact Thought content: Yes Suicidal ideation Perceptual disturbances: Yes Auditory hallucinations Attention span: Unable to Sustain Attention Memory description: Recent Intact Patient reliability: Reliable Historian Intelligence estimate: Average Judgment: Poor Insight: Partial Results - Vital Signs Vital signs: Temp Pulse Resp BP Pulse Ox 97.6 F 76 16 116/78 98 01/27/17 11:30 01/27/17 11:30 01/27/17 11:30 01/27/17 11:30 01/27/17 11:30 - Labs Labs: Laboratory Last Values WBC 4.0 K/mcL (4.3-11.1) L 01/22/17 05:33 RBC 3.85 M/mcL (4.19-5.50) L 01/22/17 05:33 Hgb 11.3 g/dL (12.9-16.9) L D 01/22/17 05:33 Hct 35.0 % (37.5-50.1) L 01/22/17 05:33 MCV 90.9 fL (83.0-100.0) 01/22/17 05:33 MCH 29.4 pg (28.0-33.3) 01/22/17 05:33 MCHC 32.3 g/dL (31.6-35.5) 01/22/17 05:33 RDW 20.4 % (11.5-14.5) H 01/22/17 05:33 Plt Count 211 K/mcL (140-400) 01/22/17 05:33 MPV 10.3 fL (9.4-12.4) 01/22/17 05:33 Immature Gran % 0.8 % (0-4) 01/22/17 05:33 Seg Neutrophils % 57.3 % 01/22/17 05:33 Lymphocytes % 19.8 % 01/22/17 05:33 Monocytes % 15.8 % 01/22/17 05:33 Eosinophils % 5.5 % 01/22/17 05:33 Basophils % 0.8 % 01/22/17 05:33 Neutrophils # 2.3 K/mcL (1.6-8.9) 01/22/17 05:33 Lymphocytes # 0.8 K/mcL (0.6-4.6) 01/22/17 05:33 Monocytes # 0.6 K/mcL (0.0-1.3) 01/22/17 05:33 Eosinophils # 0.2 K/mcL (0.0-0.6) 01/22/17 05:33 Basophils # 0.0 K/mcL (0.0-0.2) 01/22/17 05:33 Platelet Estimate Normal (Normal) 01/18/17 04:31 Anisocytosis 1+ (Not Present) A 01/18/17 04:31 Microcytosis Present (Not Present) A 01/18/17 04:31 Macrocytosis Present (Not Present) A 01/18/17 04:31 Target Cells 1+ (Not Present) A 01/18/17 04:31 Sodium 137 mEq/L (136-145) 01/22/17 05:33 Potassium 3.3 mEq/L (3.5-4.5) L 01/22/17 05:33 Chloride 105 mEq/L (98-109) 01/22/17 05:33 Carbon Dioxide 28 mEq/L (19-29) 01/22/17 05:33 BUN 9 mg/dL (8-26) 01/22/17 05:33 Creatinine 0.91 mg/dL (0.72-1.25) 01/22/17 05:33 Est GFR ( Amer) > 60 (> 60) 01/22/17 05:33 Est GFR (Non-Af Amer) > 60 (> 60) 01/22/17 05:33 BUN/Creatinine Ratio 10 (6-26) 01/22/17 05:33 Glucose 104 mg/dL (70-99) H 01/22/17 05:33 Calculated Osmolality 283 (280-300) 01/22/17 05:33 Calcium 8.7 mg/dL (8.6-10.8) 01/22/17 05:33 Magnesium 1.9 mg/dL (1.6-2.6) 01/19/17 04:29 C-Reactive Protein 13 mg/L (Less than 5) H 01/18/17 04:31 TSH 2.519 mcIU/mL (0.350-4.840) 01/17/17 18:55 Urine Color Yellow (Yellow) 01/17/17 20:23 Urine Clarity Clear (Clear) 01/17/17 20:23 Urine pH 5.5 pH Units (5.0-8.0) 01/17/17 20:23 Ur Specific [place] 1.023 (1.010-1.025) 01/17/17 20:23 Urine Protein Trace mg/dL (Neg-Trace) 01/17/17 20:23 Urine Glucose (UA) Normal mg/dL (Normal) 01/17/17 20:23 Urine Ketones 15 mg/dL (Negative) H 01/17/17 20:23 Urine Blood Negative (Negative) 01/17/17 20:23 Urine Nitrite Negative (Negative) 01/17/17 20:23 Urine Bilirubin Small (Negative) H 01/17/17 20:23 Urine Urobilinogen Normal mg/dL (Normal) 01/17/17 20:23 Ur Leukocyte Esterase Negative (Negative) 01/17/17 20:23 Urine Microscopic RBC 3-5 per hpf (0-3) H 01/17/17 20:23 Urine Microscopic WBC 0-3 per hpf (0-3) 01/17/17 20:23 Ur Squamous Epith Cells Moderate per lpf (None-Few) H 01/17/17 20:23 Urine Bacteria None Seen per hpf (None-Few) 01/17/17 20:23 Hyaline Casts None Seen per lpf (None-Few) 01/17/17 20:23 Salicylates < 5.0 mg/dL (15-30) L 01/17/17 18:55 Urine Opiates Screen Negative ng/mL (Qmtlxh=930) 01/17/17 07:50 Acetaminophen < 1.0 mcg/mL (10-30) L 01/17/17 18:55 Ur Barbiturates Screen Negative ng/mL (Ctmsbh=952) 01/17/17 07:50 Ur Phencyclidine Scrn Negative ng/mL (Cutoff=25) 01/17/17 07:50 Ur Amphetamines Screen Negative ng/mL (Izijtw=8955) 01/17/17 07:50 U Benzodiazepines Scrn Negative ng/mL (Quduvs=493) 07/14/17 07:50 Urine Cocaine Screen Negative ng/mL (Cutoff= 300) 01/17/17 07:50 U Marijuana (THC) Screen Negative ng/mL (Cutoff = 50) 01/17/17 07:50 Ethyl Alcohol < 10 mg/dL (0-10) 01/17/17 18:55 Consult Discharge Plan - Plan Instructions: How to Stop Smoking (DC), Chronic Obstructive Pulmonary Disease ( DC), At-Risk Alcohol Use (DC) Additional Instructions: Sending directly to inpatient psychiatric care. Follows with [place] gold team pt awaiting for bed at [facility] increase prozac to 60 mg, increase risperdal to 1 mg po bid. Referrals: NO,PCP [Primary Care Provider] - Prescriptions: Cefpodoxime Proxetil 200 mg PO BID #10 tablet levoFLOXacin [Levaquin] 750 mg PO DAILY #5 tablet
--- NOTE | 2017-01-27 16:41 | Event Note ---
<Portillo Hanna - Last Filed: 01/27/17 16:40> Date of Encounter: 01/27/17 Time of Encounter: 10:00 The patient is medically clear and awaiting placement at an inpatient psychiatric facility. Social work has been trying to find a bed at one of the [facility] psychiatric facilities but has so far been unable to do so. Patient maintains suicidal ideations. He is being followed by psychiatry. <Alfredo Delgado - Last Filed: 01/27/17 17:55> Date of Encounter: 01/27/17 I examined this patient and my medical decision-making was reviewed with the Resident Physician. I agree with the documented findings, disposition and treatment plan as described except to the extent set forth below. Psych input appreciated.
[2017-01-27] MEDS ORDERED: *HR* LORazepam 1 MG TABLET PO ONE (19:43)
[2017-01-27] MEDS: Melatonin 3 MG TABLET PO SCH (20:56)
[2017-01-27] MEDS: Latanoprost 2.5 ML BOTTLE BOTH EYES SCH (20:59)
[2017-01-28] MEDS: risperiDONE 0.25 MG TABLET PO SCH ×2 (08:56→21:27)
[2017-01-28] MEDS: Thiamine (B-1) 100 MG TABLET PO SCH (08:56)
[2017-01-28] MEDS: Vitamin B Complex/Vit C/Vit E 1 EACH TABLET PO SCH (08:56)
[2017-01-28] MEDS: FLUoxetine 20 MG CAPSULE PO SCH (08:56)
[2017-01-28] MEDS: Lisinopril 20 MG TABLET PO SCH (08:57)
[2017-01-28] MEDS: *HR* Rivaroxaban 10 MG TABLET PO SCH (08:57)
[2017-01-28] MEDS: Calcium 600 + Vit D PO SCH ×2 (09:01→21:33)
--- NOTE | 2017-01-28 18:29 | Event Note ---
Date of Encounter: 01/28/17 Time of Encounter: 18:28 medically clear and awaiting for placement. Psych on board [employer] efforts appreciated.
[2017-01-28] MEDS: Melatonin 3 MG TABLET PO SCH (21:27)
[2017-01-28] MEDS: Latanoprost 2.5 ML BOTTLE BOTH EYES SCH (21:28)
[2017-01-29] MEDS: Lisinopril 20 MG TABLET PO SCH (07:55)
[2017-01-29] MEDS: risperiDONE 0.25 MG TABLET PO SCH ×2 (07:56→21:05)
[2017-01-29] MEDS: *HR* Rivaroxaban 10 MG TABLET PO SCH (07:56)
[2017-01-29] MEDS: Vitamin B Complex/Vit C/Vit E 1 EACH TABLET PO SCH (07:56)
[2017-01-29] MEDS: Thiamine (B-1) 100 MG TABLET PO SCH (07:56)
[2017-01-29] MEDS: FLUoxetine 20 MG CAPSULE PO SCH (07:56)
[2017-01-29] MEDS: Calcium 600 + Vit D PO SCH ×2 (07:58→21:13)
[2017-01-29] MEDS: Ondansetron ODT 4 MG TAB.RAPDIS SL PRN (20:06)
[2017-01-29] MEDS: Melatonin 3 MG TABLET PO SCH (21:06)
[2017-01-29] MEDS: Latanoprost 2.5 ML BOTTLE BOTH EYES SCH (21:13)
--- NOTE | 2017-01-30 09:13 | Consult Note ---
Date of Encounter: 01/30/17 Time of Encounter: 08:30 Assessment & Recommendation (1) Major depressive disorder with psychotic features Current visit: Yes Status: Acute Qualifiers: Major depression recurrence: recurrent Active/Remission status: currently active Major depression episode severity: severe Qualified Code(s): F33.3 - Major depressive disorder, recurrent, severe with psychotic symptoms (2) Alcohol dependence Current visit: Yes Status: Acute Qualifiers: Substance use status: uncomplicated Qualified Code(s): F10.20 - Alcohol dependence, uncomplicated (3) Depression Current visit: Yes Status: Chronic Qualifiers: Depression Type: major depressive disorder Major depression recurrence: recurrent Active/Remission status: currently active Major depression episode severity: severe Psychotic features: without psychotic features Qualified Code(s): F33.2 - Major depressive disorder, recurrent severe without psychotic features History of Present Illness Requesting Physician: Alfredo Delgado MD History of present illness: Mr. Bernal is a 51 year old male seen today for follow up , remaind depressed, anxious, suicidal with detailed plan to go to [facility] and OD on alcohol and heroin. he states he is having flash backs and unable to sleep having vivid dreams of his uncle whom he tried to save by doing CPR and unable to save. patient is having commanding hallucinations today and paranoia, he is significantly depressed with suicidal plan. continue one to one increased prozac and risperdal. need to be transfered to psychiatric inpatient. case d/w attending. CC: Alfredo Delgado MD Past Med Surg Social Fam HX - Past Medical History Medical history: COPD, glaucoma, hypertension, seizures, TIA - Past Surgical History Surgical History: other - Social History Smoking Status: Current some day smoker Smokeless Tobacco Status: No Alcohol use: heavy Drug use: none - Family History Mother History Unknown: Yes Medications & Allergies Brimonidine Tartrate [Alphagan P] 1 drop LEFT EYE BID 05/06/15 [History] Latanoprost [Xalatan] 1 drop BOTH EYES HS 05/06/15 [History] Docusate Sodium [Colace] 100 mg PO BID PRN 05/29/15 [History] FLUoxetine HCl [Prozac] 40 mg PO DAILY 05/29/15 [History] Albuterol Sulfate [Proair Hfa] 2 puff IH QID PRN 11/02/16 [History] Calcium Carbonate/Vitamin D3 [Calcium 600 + Vit D Tablet] 1 tab PO BID 11/02/16 [History] Ferrous Sulfate [Iron] 325 mg PO BID 11/02/16 [History] RisperiDONE [Risperdal] 0.5 mg PO BID 11/02/16 [History] Atorvastatin [Lipitor] 10 mg PO HS #30 tablet 11/04/16 [Rx] Clopidogrel [Plavix] 75 mg PO DAILY #30 tablet 11/04/16 [Rx] Lisinopril [Zestril] 20 mg PO DAILY #30 tablet 11/04/16 [Rx] Metoprolol [Lopressor] 25 mg PO BID #30 tablet 11/04/16 [Rx] Prazosin [Minipress] 2 mg PO HS #30 capsule 11/04/16 [Rx] Carboxymethylcellulose Sodium [Refresh Liquigel] 1 drop BOTH EYES QID PRN [History] Hydrocortisone 1% CREAM [Cortaid] 1 appl TP TID 01/17/17 [History] Ipratropium/Albuterol Neb [Duoneb] 3 ml IH QID PRN 01/17/17 [History] Ipratropium/Albuterol Sulfate [Combivent Respimat Inhal [place]] 1 puff IH QID PRN 01/17/17 [History] Melatonin [Melatin] 12 mg PO HS 01/17/17 [History] Omeprazole [PriLOSEC] 20 mg PO DAILY 01/17/17 [History] Rivaroxaban [Xarelto] 20 mg PO DAILY 01/17/17 [History] Sildenafil Citrate [Viagra] 25 mg PO DAILY PRN 01/17/17 [History] Thiamine (B-1) [Vitamin B-1] 100 mg PO DAILY #30 tab 01/19/17 [Rx] Cefpodoxime Proxetil 200 mg PO BID #10 tablet 01/22/17 [Rx] Potassium Chloride 40 meq PO DAILY 01/22/17 [Rx] levoFLOXacin [Levaquin] 750 mg PO DAILY #5 tablet 01/22/17 [Rx] Allergies No Known Allergies Allergy (Verified 01/17/17 18:09) Review of Systems Psychiatric: Reports: anxiety, suicidal ideation, auditory hallucinations, anhedonia, hopelessness Results - Vital Signs Vital signs: Temp Pulse Resp BP Pulse Ox 97.7 F 85 16 94/58 98 07/26/17 20:53 01/29/17 20:53 01/29/17 20:53 01/29/17 20:53 01/29/17 20:53 - Labs Labs: Laboratory Last Values WBC 4.0 K/mcL (4.3-11.1) L 01/22/17 05:33 RBC 3.85 M/mcL (4.19-5.50) L 01/22/17 05:33 Hgb 11.3 g/dL (12.9-16.9) L D 01/22/17 05:33 Hct 35.0 % (37.5-50.1) L 01/22/17 05:33 MCV 90.9 fL (83.0-100.0) 01/22/17 05:33 MCH 29.4 pg (28.0-33.3) 01/22/17 05:33 MCHC 32.3 g/dL (31.6-35.5) 01/22/17 05:33 RDW 20.4 % (11.5-14.5) H 01/22/17 05:33 Plt Count 211 K/mcL (140-400) 01/22/17 05:33 MPV 10.3 fL (9.4-12.4) 01/22/17 05:33 Immature Gran % 0.8 % (0-4) 01/22/17 05:33 Seg Neutrophils % 57.3 % 01/22/17 05:33 Lymphocytes % 19.8 % 01/22/17 05:33 Monocytes % 15.8 % 01/22/17 05:33 Eosinophils % 5.5 % 01/22/17 05:33 Basophils % 0.8 % 01/22/17 05:33 Neutrophils # 2.3 K/mcL (1.6-8.9) 01/22/17 05:33 Lymphocytes # 0.8 K/mcL (0.6-4.6) 01/22/17 05:33 Monocytes # 0.6 K/mcL (0.0-1.3) 01/22/17 05:33 Eosinophils # 0.2 K/mcL (0.0-0.6) 01/22/17 05:33 Basophils # 0.0 K/mcL (0.0-0.2) 01/22/17 05:33 Platelet Estimate Normal (Normal) 01/18/17 04:31 Anisocytosis 1+ (Not Present) A 01/18/17 04:31 Microcytosis Present (Not Present) A 01/18/17 04:31 Macrocytosis Present (Not Present) A 01/18/17 04:31 Target Cells 1+ (Not Present) A 01/18/17 04:31 Sodium 137 mEq/L (136-145) 01/22/17 05:33 Potassium 3.3 mEq/L (3.5-4.5) L 01/22/17 05:33 Chloride 105 mEq/L (98-109) 01/22/17 05:33 Carbon Dioxide 28 mEq/L (19-29) 01/22/17 05:33 BUN 9 mg/dL (8-26) 01/22/17 05:33 Creatinine 0.91 mg/dL (0.72-1.25) 01/22/17 05:33 Est GFR ( Amer) > 60 (> 60) 01/22/17 05:33 Est GFR (Non-Af Amer) > 60 (> 60) 01/22/17 05:33 BUN/Creatinine Ratio 10 (6-26) 01/22/17 05:33 Glucose 104 mg/dL (70-99) H 01/22/17 05:33 Calculated Osmolality 283 (280-300) 01/22/17 05:33 Calcium 8.7 mg/dL (8.6-10.8) 01/22/17 05:33 Magnesium 1.9 mg/dL (1.6-2.6) 01/19/17 04:29 C-Reactive Protein 13 mg/L (Less than 5) H 01/18/17 04:31 TSH 2.519 mcIU/mL (0.350-4.840) 01/17/17 18:55 Urine Color Yellow (Yellow) 01/17/17 20:23 Urine Clarity Clear (Clear) 01/17/17 20:23 Urine pH 5.5 pH Units (5.0-8.0) 01/17/17 20:23 Ur Specific [place] 1.023 (1.010-1.025) 01/17/17 20:23 Urine Protein Trace mg/dL (Neg-Trace) 01/17/17 20:23 Urine Glucose (UA) Normal mg/dL (Normal) 01/17/17 20:23 Urine Ketones 15 mg/dL (Negative) H 01/17/17 20:23 Urine Blood Negative (Negative) 01/17/17 20:23 Urine Nitrite Negative (Negative) 01/17/17 20:23 Urine Bilirubin Small (Negative) H 01/17/17 20:23 Urine Urobilinogen Normal mg/dL (Normal) 01/17/17 20:23 Ur Leukocyte Esterase Negative (Negative) 01/17/17 20:23 Urine Microscopic RBC 3-5 per hpf (0-3) H 01/17/17 20:23 Urine Microscopic WBC 0-3 per hpf (0-3) 01/17/17 20:23 Ur Squamous Epith Cells Moderate per lpf (None-Few) H 01/17/17 20:23 Urine Bacteria None Seen per hpf (None-Few) 01/17/17 20:23 Hyaline Casts None Seen per lpf (None-Few) 01/17/17 20:23 Salicylates < 5.0 mg/dL (15-30) L 01/17/17 18:55 Urine Opiates Screen Negative ng/mL (Fqsgsy=857) 01/17/17 07:50 Acetaminophen < 1.0 mcg/mL (10-30) L 01/17/17 18:55 Ur Barbiturates Screen Negative ng/mL (Jjyava=244) 01/17/17 07:50 Ur Phencyclidine Scrn Negative ng/mL (Cutoff=25) 01/17/17 07:50 Ur Amphetamines Screen Negative ng/mL (Csyfym=9071) 01/17/17 07:50 U Benzodiazepines Scrn Negative ng/mL (Krvpri=526) 01/17/17 07:50 Urine Cocaine Screen Negative ng/mL (Cutoff= 300) 01/17/17 07:50 U Marijuana (THC) Screen Negative ng/mL (Cutoff = 50) 01/17/17 07:50 Ethyl Alcohol < 10 mg/dL (0-10) 01/17/17 18:55 Consult Discharge Plan - Plan Instructions: How to Stop Smoking (DC), Chronic Obstructive Pulmonary Disease ( DC), At-Risk Alcohol Use (DC) Additional Instructions: Sending directly to inpatient psychiatric care. Follows with [place] gold team pt awaiting for bed at [facility] increase prozac to 60 mg, increase risperdal to 1 mg po bid. Referrals: NO,PCP [Primary Care Provider] - Prescriptions: Cefpodoxime Proxetil 200 mg PO BID #10 tablet levoFLOXacin [Levaquin] 750 mg PO DAILY #5 tablet
[2017-01-30] MEDS: Calcium 600 + Vit D PO SCH ×2 (09:27→21:17)
[2017-01-30] MEDS: Vitamin B Complex/Vit C/Vit E 1 EACH TABLET PO SCH (09:32)
[2017-01-30] MEDS: Thiamine (B-1) 100 MG TABLET PO SCH (09:32)
[2017-01-30] MEDS: Lisinopril 20 MG TABLET PO SCH (09:32)
[2017-01-30] MEDS: *HR* Rivaroxaban 10 MG TABLET PO SCH (09:32)
[2017-01-30] MEDS: risperiDONE 1 MG TABLET PO SCH ×2 (09:45→21:16)
[2017-01-30] MEDS: FLUoxetine 20 MG CAPSULE PO SCH ×2 (09:46→18:56)
--- NOTE | 2017-01-30 18:38 | Event Note ---
Date of Encounter: 01/30/17 Time of Encounter: 18:37 Psych input appreciated medically clear and pending for placement.
[2017-01-30] MEDS: risperiDONE 0.25 MG TABLET PO SCH (18:55)
[2017-01-30] MEDS ORDERED: risperiDONE 1 MG TABLET PO SCH (21:00)
[2017-01-30] MEDS: Latanoprost 2.5 ML BOTTLE BOTH EYES SCH (21:17)
[2017-01-30] MEDS: Melatonin 3 MG TABLET PO SCH (21:17)
[2017-01-31 08:01] VITALS: BP 101/74
[2017-01-31] MEDS: FLUoxetine 20 MG CAPSULE PO SCH (08:52)
[2017-01-31] MEDS: Lisinopril 20 MG TABLET PO SCH (08:52)
[2017-01-31] MEDS: Calcium 600 + Vit D PO SCH (08:53)
[2017-01-31] MEDS: Vitamin B Complex/Vit C/Vit E 1 EACH TABLET PO SCH (08:53)
[2017-01-31] MEDS: Thiamine (B-1) 100 MG TABLET PO SCH (08:53)
[2017-01-31] MEDS: risperiDONE 1 MG TABLET PO SCH (08:54)
[2017-01-31] MEDS ORDERED: FLUoxetine 20 MG CAPSULE PO SCH (09:00)
[2017-01-31] MEDS: *HR* Rivaroxaban 10 MG TABLET PO SCH (09:06)
== END 2017-01-31 10:16 | DRG 896 ==
LOC: 3ANU 18:07 → EMEROO 18:07 → 3BNU 23:41 → SUATTDRO 01-21 10:26
PROVIDERS: ADMIT Internal Medicine; ATTEND Internal Medicine

== ENCOUNTER 2017-06-24 11:10 | Inpatient (IN) ==
[2017-06-24] MEDS ORDERED: *HR* Dextrose 50 % in Water (Syg) 50 ML SYRINGE ONE ×2 (11:16→15:15)
[2017-06-24] MEDS ORDERED: Thiamine (B-1) 100 MG in D5% in Water 50 ML IVPB STA (11:26)
--- NOTE | 2017-06-24 11:29 | Emergency Department Note ---
Disposition Clinical Impression: Left facial numbness, Left leg weakness Disposition: Admitted As Inpatient Condition: Good Neuro HPI - General Chief Complaint: ED Neuro Symptoms/Deficit Stated Complaint: Neuro symptoms Time Seen by Provider: 06/24/17 11:17 Source: EMS Mode of arrival: EMS Limitations: physical limitation Nursing Notes Reviewed: Yes Vital Signs Reviewed: Yes - History of Present Illness HPI Narrative: 51-year-old male history of prior TIA, hypertension, COPD, alcohol dependence who presents from the [facility] due to strokelike symptoms. Patient reports he awoke with symptoms at 7:30 this morning. States he was at his baseline health yesterday evening when he went to bed. He reports this is identical to his prior stroke with left lower extremity weakness as well as paresthesias of his left face. He states the symptoms resolved and has had no sequela from his prior stroke. He was currently inpatient at the [facility] for detoxification for alcohol abuse. He reports he has had a seizure before while detoxifying. It is also reported that he had 2 falls yesterday but he is unable to tell us why. States he has some trouble with his short- term memory. Medications reviewed showing that he is on Plavix as well as xarelto. He currently endorses that his symptoms are improving and feels better than when he woke up this morning. No other complaints. Onset of Symptoms Date: 06/24/17 Symptom Onset Unknown: Yes Location: left face, left leg History of same: Yes Severity: moderate Quality: weakness, numbness Symptoms Improving: Yes Improves with: time Worsens with: none Context: present upon awakening On Anticoagulants: Yes Associated symptoms: Denies: chest pain, fever/chills, headaches, nausea/ vomiting Treatments Prior to Arrival: none - Related Data Home Medications: Home Medications Medication Instructions Recorded Confirmed Brimonidine Tartrate [Alphagan P] 1 drop LEFT EYE BID 05/06/15 06/24/17 Latanoprost [Xalatan] 1 drop BOTH EYES HS 05/06/15 06/24/17 Docusate Sodium [Colace] 100 mg PO BID PRN 05/29/15 06/24/17 Calcium Carbonate/Vitamin D3 1 tab PO BID 11/02/16 06/24/17 [Calcium 600 + Vit D Tablet] Ferrous Sulfate [Iron] 325 mg PO BID 11/02/16 06/24/17 RisperiDONE [Risperdal] 0.5 mg PO BID 11/02/16 06/24/17 Carboxymethylcellulose Sodium 1 drop BOTH EYES QID PRN 01/17/17 06/24/17 [Refresh Liquigel] Ipratropium/Albuterol Sulfate 1 puff IH QID PRN 01/17/17 06/24/17 [Combivent Respimat Inhal [place]] Melatonin [Melatin] 12 mg PO HS 01/17/17 06/24/17 Omeprazole [PriLOSEC] 20 mg PO DAILY 01/17/17 06/24/17 Rivaroxaban [Xarelto] 20 mg PO DAILY 01/17/17 06/24/17 Acetaminophen [Non-Aspirin] 325 mg PO BID PRN 06/24/17 06/24/17 Amlodipine Besylate 10 mg PO DAILY 06/24/17 06/24/17 Ammonium Lactate [Lac-Hydrin Five] 1 appl TP BID 06/24/17 06/24/17 Multivit-Min/FA/Lycopen/Lutein [A 1 tab PO DAILY 06/24/17 06/24/17 Thru Z Select Multivit Tab] Naltrexone HCl [Revia] 50 mg PO DAILY 06/24/17 06/24/17 Polyethylene Glycol 3350 [MiraLAX] 17 gm PO DAILY 06/24/17 06/24/17 Prazosin [Minipress] 1 mg PO HS 06/24/17 06/24/17 Sertraline [Zoloft] 150 mg PO DAILY 06/24/17 06/24/17 hydrOXYzine HCl [Hydroxyzine HCl] 25 mg PO Q6H PRN 06/24/17 06/24/17 Previous Rx's Medication Instructions Recorded Atorvastatin [Lipitor] 10 mg PO HS #30 tablet 11/04/16 Clopidogrel [Plavix] 75 mg PO DAILY #30 tablet 11/04/16 Metoprolol [Lopressor] 25 mg PO BID #30 tablet 11/04/16 Thiamine (B-1) [Vitamin B-1] 100 mg PO DAILY #30 tab 01/19/17 Allergies/Adverse Reactions: Allergies Allergy/AdvReac Type Severity Reaction Status Date / Time No Known Allergies Allergy Verified 06/24/17 11:27 All systems ED: reviewed and negative except as stated. Constitutional: Denies: fever Cardiovascular: Denies: chest pain Respiratory: Denies: dyspnea Gastrointestinal: Denies: abdominal pain Neurological: Reports: weakness, paresthesias. Denies: headache Past Medical History - Past Medical History Attestation: Yes The following information was validated with the patient. Source: patient, obtained from family Medical history: Reports: COPD, glaucoma, hypertension, seizures, TIA Surgical history: Reports: other Psychiatric history: Reports: anxiety, depression, prior suicide attempt - Social History Smoking Status: Current some day smoker Smokeless Tobacco Status: No Alcohol use: Reports: heavy Drug use: Reports: none Physical Exam - General Limitations: no limitations General appearance: alert, in no apparent distress - Head Head exam: atraumatic, normocephalic, normal inspection - Eye Eye exam: Present: normal appearance, PERRL, EOMI - ENT ENT exam: normal exam - Neck Neck exam: Present: normal inspection, full ROM - Chest Chest inspection: Present: normal inspection, symmetric chest wall rise - Respiratory Respiratory exam: Present: normal lung sounds bilaterally - Cardiovascular Cardiovascular exam: Present: regular rate, normal rhythm, normal heart sounds - Abdominal Exam Abdominal exam: Present: soft, Non-Tender. Absent: tenderness - Extremities Exam Extremities exam: Present: normal inspection, full ROM - Expanded Upper Extremity Exam Shoulder exam: Present: normal inspection, full ROM Arm exam: Present: normal inspection, full ROM Elbow exam: Present: normal inspection, full ROM Forearm/Wrist exam: Present: normal inspection, full ROM Hand exam: Present: normal inspection, full ROM - Expanded Lower Extremity Exam Hip/Pelvis exam: Present: normal inspection, full ROM Upper leg exam: Present: normal inspection, full ROM Knee exam: Present: normal inspection, full ROM Lower leg exam: Present: normal inspection, full ROM Ankle exam: Present: normal inspection, full ROM Foot/toe exam: Present: normal inspection, full ROM Neurovascular/Tendon exam: Present: sensory deficit (Paresthesias of the left lower extremity) - Neurological Exam Neurological exam: Present: alert, oriented X3, CN II-XII intact (With the exception of paresthesias of the left fifth cranial nerve) - Expanded Neurological Exam Patient oriented to: Present: person, place, time Speech: Present: expressive aphasia (He does demonstrate some mild dysarthria on exam with delayed answering) Cranial nerves: EOM function (II, III, IV, ): Normal, facial sensation (V): Abnormal Left, spinal accessory function (XI): Normal, tongue deviation (XII): Normal Cerebellar function: finger to nose: Normal, heel to healy: Normal Motor strength - LUE: 5/5 Motor strength - RUE: 5/5 Motor strength - LLE: 4/5 Motor strength - RLE: 5/5 Sensory exam upper extremity: light touch: Normal Sensory exam lower extremity: light touch: Abnormal Left Coma Scale Eye Opening: Spontaneous Coma Scale Motor Response: Obeys Commands Coma Scale Verbal Response: Oriented Coma Scale Total: 15 - Psychiatric Psychiatric exam: Present: normal affect - Skin Skin exam: Present: warm, dry, intact Course Course Narrative: Patient seen and evaluated at time of arrival. He is not a stroke alert candidate as he awoke with symptoms this morning. He currently has an NIH of 2 previously documented at 5 at the [facility]. He does report that his symptoms are improving. He is noted to have left facial paresthesias as well as muscle strength discrepancy in the left lower extremity. He is otherwise nonfocal and answers questions appropriately with mild dysarthria. Plan for this patient is to obtain a CT scan of his head as well as repeat baseline labs previously ordered. Given his history of alcohol abuse with his memory issues we will also treat him with thiamine. Patient was noted to be hypoglycemic in the high 50s here and administered one amp of D50. Vital Signs Temperature 97.5 F L 06/24/17 11:12 Pulse Rate 58 06/24/17 11:12 Respiratory Rate 16 06/24/17 11:12 Blood Pressure 130/90 06/24/17 11:12 O2 Sat by Pulse Oximetry 97 06/24/17 11:12 Temperature 97.3 F L 06/24/17 16:00 Pulse Rate 64 06/24/17 16:00 Respiratory Rate 16 06/24/17 16:00 Blood Pressure 140/92 06/24/17 16:00 O2 Sat by Pulse Oximetry 94 06/24/17 16:00 Oxygen Delivery Oxygen Delivery Room Air Neuro Symptoms/Deficit - MDM Narrative Medical decision making narrative: 51-year-old male presents to the ER from the [facility] due to LLE weakness and left facial paresthesias. Prior history of TIA in the past and reports this is identical. He currently is anticoagulated. He was transferred from the [facility] where he was undergoing detoxification for alcohol abuse. Aside from the left lower 70 weakness and facial paresthesias he has an otherwise nonfocal neurologic exam. CT demister is no acute infarct. Case discussed with the hospitalist who accepts the patient to their service. - Lab Data Lab results reviewed: Yes I reviewed the patient's lab results. Result diagrams: 06/24/17 11:57 06/24/17 11:57 Lab Results 06/24/17 06/24/17 06/24/17 Range/Units 11:15 11:57 11:57 WBC 3.9 L (4.3-11.1) K/mcL RBC 4.21 (4.19-5.50) M/mcL Hgb 13.0 (12.9-16.9) g/dL Hct 40.6 (37.5-50.1) % MCV 96.4 (83.0-100.0) fL MCH 30.9 (28.0-33.3) pg MCHC 32.0 (31.6-35.5) g/dL RDW 14.8 H (11.5-14.5) % Plt Count 276 (140-400) K/mcL MPV 9.5 (9.4-12.4) fL Immature Gran % 0.3 (0-4) % Seg Neutrophils % 53.7 % Lymphocytes % 21.3 % Monocytes % 14.0 % Eosinophils % 9.4 % Basophils % 1.3 % Neutrophils # 2.1 (1.6-8.9) K/mcL Lymphocytes # 0.8 (0.6-4.6) K/mcL Monocytes # 0.5 (0.0-1.3) K/mcL Eosinophils # 0.4 (0.0-0.6) K/mcL Basophils # 0.1 (0.0-0.2) K/mcL PT 18.0 H (9.4-12.1) Seconds INR 1.7 APTT 81.4 H (26.0-36.0) Seconds Sodium (136-145) mEq/L Potassium (3.5-5.1) mEq/L Chloride (98-107) mEq/L Carbon Dioxide (23-29) mEq/L BUN (6-20) mg/dL Creatinine (0.70-1.30) mg/dL Est GFR ( Amer) (> 60) Est GFR (Non-Af Amer) (> 60) BUN/Creatinine Ratio (6-26) Glucose (70-105) mg/dL POC Glucose 50 L (58-89) Calculated Osmolality (280-300) Calcium (8.6-10.3) mg/dL Troponin I (< 0.04) ng/mL 06/24/17 06/24/17 06/24/17 Range/Units 11:57 11:57 13:08 WBC (4.3-11.1) K/mcL RBC (4.19-5.50) M/mcL Hgb (12.9-16.9) g/dL Hct (37.5-50.1) % MCV (83.0-100.0) fL MCH (28.0-33.3) pg MCHC (31.6-35.5) g/dL RDW (11.5-14.5) % Plt Count (140-400) K/mcL MPV (9.4-12.4) fL Immature Gran % (0-4) % Seg Neutrophils % % Lymphocytes % % Monocytes % % Eosinophils % % Basophils % % Neutrophils # (1.6-8.9) K/mcL Lymphocytes # (0.6-4.6) K/mcL Monocytes # (0.0-1.3) K/mcL Eosinophils # (0.0-0.6) K/mcL Basophils # (0.0-0.2) K/mcL PT (9.4-12.1) Seconds INR APTT (26.0-36.0) Seconds Sodium 135 L (136-145) mEq/L Potassium 3.9 (3.5-5.1) mEq/L Chloride 104 (98-107) mEq/L Carbon Dioxide 27 (23-29) mEq/L BUN 9 (6-20) mg/dL Creatinine 0.96 (0.70-1.30) mg/dL Est GFR ( Amer) > 60 (> 60) Est GFR (Non-Af Amer) > 60 (> 60) BUN/Creatinine Ratio 9 (6-26) Glucose 143 H (70-105) mg/dL POC Glucose 55 L (58-89) Calculated Osmolality 281 (280-300) Calcium 9.2 (8.6-10.3) mg/dL Troponin I < 0.03 (< 0.04) ng/mL - Radiology Data Radiology results reviewed: Yes I reviewed the patient's radiology results. Head CT 06/24/17 11:17 IMPRESSION: No CT evidence of acute cortical infarct. No CT evidence of acute intracranial hemorrhage. Unchanged hyperdensity within right parietal lobe, likely compatible with previous infarct. Worsening of paranasal sinus disease, with a near complete opacification of all paranasal sinuses, with internal hyperdensity. Findings may represent extensive sinusitis, with inspissated secretions or colonization with a noninvasive fungus. Sinonasal polyposis is also in the differential. Recommend ENT follow-up. D/ / 06/24/2017 12:58:33 Jan Moreno MD / jessica Interpreting Provider: Jan Moreno MD - EKG Data EKG attestation: Yes I reviewed and interpreted this EKG. EKG results narrative: EKG demonstrates sinus bradycardia with rate of 50 bpm. Normal axis. Prolonged [place] interval with first-degree AV block. Normal R-wave progression. No gross ST elevations or depressions. No acute ischemic findings. NIH Stroke Scale - Level of Consciousness LOC: Alert - LOC Questions LOC Questions: Answers both correctly - LOC Commands LOC Commands: Performs both correctly - Best Gaze Best Gaze: Normal - Visual Visual: No visual loss - Facial Palsy Facial Palsy: Normal - Motor Arms Motor Arm-Left: No drift for 10 seconds Motor Arm-Right: No drift for 10 seconds - Motor Legs Motor Leg-Left: No drift for 5 seconds Motor Leg-Right: No drift for 5 seconds - Limb Ataxia Limb Ataxia: Absent of affected limb too weak to perform exam - Sensory Sensory: Mild to moderate loss, "not as sharp" - Best Language Best Language: No aphasia - Dysarthria Dysarthria: Mild, slurs some words - Extinction and Inattention Extinction and Inattention: Normal - NIHSS Total Score NIHSS Total Score: 2 S.B.A.R. - S.B.A.RTasia Situation: Demographics, MOA Background: Presenting Complaint, Relevant PMH, Meds, & Allergies Assessment: Exam Concerns, Patient/Family Expectation Recommendation: Barrier(s) to disposition, Recommendation based on pending studies, treatments, or consults S.B.A.RTasia Report Given to: Dr. Sandy Mahoney Repor Time: 13:03 Attestation Statement - Attestation Attestation: I, Hossein Grant, examined this patient and my medical decision-making was reviewed with the DAIRY HUSBANDMAN/PA/Advanced Practice Nurse/Resident Physician. I agree with the documented findings, disposition and treatment plan as described except to the extent set forth below. 51-year-old male presents emergency Department with concerns of weakness to the left lower extremity and paresthesias to the left face. Patient states he woke with these symptoms at 7:30 AM. He states these symptoms feel similar to his previous TIA. He had no residual deficits prior to the past 24 hours. Patient describes falling twice yesterday secondary to weakness. He states he "has not felt right since his seizure while detoxing" patient is at [facility] for detox from alcohol use. Upon review of the patient's chart he is currently taking Xarelto. CT of the head was negative for acute fracture or intracranial hemorrhage. She will be admitted to the hospital for further care and evaluation of his possible CVA versus TIA. He is also given thiamine for possible Korsakoff versus Warnicke. NIH of 4 for left lower extremity weakness , left facial paresthesias, mild dysarthria
[2017-06-24 12:08] LABS: Basophils # 0.1 K/mcL (0.0-0.2); Basophils % 1.3 %; Eosinophils # 0.4 K/mcL (0.0-0.6); Eosinophils % 9.4 %; Hematocrit 40.6 % (37.5-50.1); Immature Granulocytes % 0.3 % (0-4); Lymphocytes # 0.8 K/mcL (0.6-4.6); Lymphocytes % 21.3 %; Mean Corpuscular Hemoglobin 30.9 pg (28.0-33.3); Mean Corpuscular Volume 96.4 fL (83.0-100.0); Mean Platelet Volume 9.5 fL (9.4-12.4); Monocytes # 0.5 K/mcL (0.0-1.3); Neutrophils # 2.1 K/mcL (1.6-8.9); Platelet Count 276 K/mcL (140-400); Red Blood Count 4.21 M/mcL (4.19-5.50); Red Cell Distribution Width 14.8 % (11.5-14.5); Segmented Neutrophils % 53.7 %
[2017-06-24 12:13] LABS: INR 1.7
[2017-06-24 12:16] LABS: Activated Partial Thrombo Time 81.4 Seconds (26.0-36.0)
[2017-06-24 12:22] LABS: BUN/Creatinine Ratio 9 (6-26); Blood Urea Nitrogen 9 mg/dL (6-20); Calcium 9.2 mg/dL (8.6-10.3); Carbon Dioxide 27 mEq/L (23-29); Chloride 104 mEq/L (98-107); Glucose 143 mg/dL (70-105); Osmolality,Calculated 281 (280-300); Potassium 3.9 mEq/L (3.5-5.1); Sodium 135 mEq/L (136-145); eGFR For African Americans > 60 (> 60); eGFR For Non-African Americans > 60 (> 60)
[2017-06-24] MEDS ORDERED: Naloxone 0.4 MG/ML INJ IVP PRN (14:16)
--- NOTE | 2017-06-24 14:16 | Internal Med History&Physical ---
Date of Encounter: 06/30/17 Time of Encounter: 14:16 Assessment and Plan (1) TIA (transient ischemic attack) Current visit: No Status: Acute 51/male. Admitted with strokelike symptoms. Upon examination no evidence of new stroke/seizure/tremors/numbness or paresthesia Patient is presently in the [facility] for alcohol detoxification. Neuro symptoms started around 7:30 AM this morning. Symptoms completely resolved during next couple of hours and at the time of examination patient is asymptomatic. MRI: 11/02/2016: No acute illness. No acute infarct. Neck CTA/head: 05/07/2015: Normal CTA of head and neck. Echocardiogram: 11/03/2016: Left ventricular ejection fraction: 60%, dilated left atrium, no significant valvular dysfunction. Plan: Admit as inpatient. We will get ultrasound carotid. Patient told that he is not keen to get MRI done. Will resume home medications. Speech therapy/occupational therapy/physical therapy evaluation. Aspirin/Lipitor. If clinical symptoms was then please consider MRI of the brain. Qualifiers: Transient cerebral ischemia type: unspecified Qualified Code(s): G45.9 - Transient cerebral ischemic attack, unspecified (2) Hypertension Current visit: No Status: Chronic We will resume home medical Qualifiers: Hypertension type: essential hypertension Qualified Code(s): I10 - Essential (primary) hypertension (3) Ethanolism Current visit: No Status: Chronic We will continue treatment from [facility]. (4) Seizures Current visit: No Status: Ruled-out We will resume home medications. seizure precautions. (5) DVT prophylaxis Current visit: No Status: Acute Patient on Xarelto We need more information regarding his medication and other disease management from [facility]. Medical decision making: This patient has a moderate to severe risk of worsening in spite of being on appropriate medication due to the underlying chronic comorbid conditions. Internal Medicine - H&P: HPI Chief complaint: Slurring of speech Admitted From: Emergency Dept Plans for Post Hospital Care: Home History of present illness: Mr. Bernal is a 51 year old male who has a background history of for hypertension , COPD, hospitalization at the [facility] for alcohol dependence. Patient had a strokelike symptoms when he got up in the morning. This was around 7:30 in the morning. This was the reason patient was sent to the emergency room from the [facility] for further evaluation. Patient complains that he has a numbness/ change in the sensation for past 2-3 hours. At the time of examination patient denies any symptoms. Patient had a history of a seizure during the drug detoxification program. Workup in the emergency room: Patient was evaluated in the emergency room. Basic labs were drawn. CT scan of the brain did not show any acute stroke/bleed /changes. Reason for admission: TIA to rule out CVA. Family history: Noncontributory Past Med Surg Social Fam HX - Past Medical History Medical history: COPD, glaucoma, hypertension, seizures, TIA Psychiatric history: anxiety, depression, prior suicide attempt - Past Surgical History Surgical History: other - Social History Smoking Status: Current some day smoker Smokeless Tobacco Status: No Alcohol use: heavy Drug use: none Internal Medicine - H&P: Meds Brimonidine Tartrate [Alphagan P] 1 drop LEFT EYE BID 05/06/15 [History] Latanoprost [Xalatan] 1 drop BOTH EYES HS 05/06/15 [History] Docusate Sodium [Colace] 100 mg PO BID PRN 05/29/15 [History] Calcium Carbonate/Vitamin D3 [Calcium 600 + Vit D Tablet] 1 tab PO BID 11/02/16 [History] Ferrous Sulfate [Iron] 325 mg PO BID 11/02/16 [History] RisperiDONE [Risperdal] 0.5 mg PO BID 11/02/16 [History] Atorvastatin [Lipitor] 10 mg PO HS #30 tablet 11/04/16 [Rx] Clopidogrel [Plavix] 75 mg PO DAILY #30 tablet 11/04/16 [Rx] Metoprolol [Lopressor] 25 mg PO BID #30 tablet 11/04/16 [Rx] Carboxymethylcellulose Sodium [Refresh Liquigel] 1 drop BOTH EYES QID PRN [History] Ipratropium/Albuterol Sulfate [Combivent Respimat Inhal [place]] 1 puff IH QID PRN 01/17/17 [History] Melatonin [Melatin] 12 mg PO HS 01/17/17 [History] Omeprazole [PriLOSEC] 20 mg PO DAILY 01/17/17 [History] Rivaroxaban [Xarelto] 20 mg PO DAILY 01/17/17 [History] Thiamine (B-1) [Vitamin B-1] 100 mg PO DAILY #30 tab 01/19/17 [Rx] Acetaminophen [Non-Aspirin] 325 mg PO BID PRN 06/24/17 [History] Amlodipine Besylate 10 mg PO DAILY 06/24/17 [History] Ammonium Lactate [Lac-Hydrin Five] 1 appl TP BID 06/24/17 [History] Multivit-Min/FA/Lycopen/Lutein [A Thru Z Select Multivit Tab] 1 tab PO DAILY [History] Naltrexone HCl [Revia] 50 mg PO DAILY 06/24/17 [History] Polyethylene Glycol 3350 [MiraLAX] 17 gm PO DAILY 06/24/17 [History] Prazosin [Minipress] 1 mg PO HS 06/24/17 [History] Sertraline [Zoloft] 150 mg PO DAILY 06/24/17 [History] hydrOXYzine HCl [Hydroxyzine HCl] 25 mg PO Q6H PRN 06/24/17 [History] 3 Allergy/AdvReac Type Severity Reaction Status Date / Time No Known Allergies Allergy Verified 06/24/17 11:27 All Systems PM: A 10-system review of systems was performed and is negative for pertinent findings except as documented above in the HPI. - Constitutional Constitutional: no chills, no fever(s), no night sweats - EENT Eyes: no change in vision, no discharge, no pain, no photophobia Ears: no ear discharge, no ear pain, no tinnitus Nose, mouth and throat: no dysphagia, no nasal discharge, no neck pain, no sore throat - Cardiovascular Cardiovascular ROS IM: no chest pain, no diaphoresis, no dyspnea, no lightheadedness, no palpitations, no syncope - Respiratory Respiratory: no cough, no dyspnea, no wheezing, no excessive phlegm production - Gastrointestinal Gastrointestinal: no abdominal pain, no diarrhea, no hematemesis, no hematochezia, no melena, no nausea, no vomiting - Musculoskeletal Musculoskeletal ROS IM: no numbness, no tingling - Integumentary Integumentary IM: no rash, no unusual bruising - Neurological Neurological ROS: as per HPI, confusion, convulsions, focal weakness, numbness, tingling, no tremor(s) - Hematologic/Lymphatic Hematologic/Lymphatic: no easy bruising - Constitutional Vitals: Temp Pulse Resp BP Pulse Ox 97.5 F L 52 14 138/101 96 06/24/17 11:12 06/24/17 13:18 06/24/17 13:18 06/24/17 13:18 06/24/17 13:11 General appearance: Present: A&O X 3, pleasant, no acute distress, answers questions appropriately - Head Head exam: Present: atraumatic, normocephalic - Eye Eye exam: Present: PERRL, conjuntiva pink, sclera anicteric Pupils: Present: PERRL - Neck Neck exam general surgery: Present: supple, trachea midline. Absent: lymphadenopathy - Respiratory Respiratory exam: Present: CTAB. Absent: accessory muscle use, rales, rhonchi, wheezes - Cardiovascular Cardiovascular exam: Present: RRR, +S1, +S2. Absent: diastolic murmur, gallop, rubs, systolic murmur - GI/Abdominal GI/Abdominal exam: Present: normal bowel sounds, soft, no peritoneal signs. Absent: distended, tenderness - Extremities Exam Extremities exam: Present: warm, radial pulses palpable and symmetrical. Absent : calf tenderness, cyanotic, pedal edema - Neurological Exam Neurological exam: Present: CN II-XII intact, oriented X3, no focal deficits. Absent: pronater drift, facial droop, speech deficit - Skin Skin exam: Present: dry, intact Internal Med - H&P Results - Labs CBC & Chem 7: 06/30/17 03:48 06/30/17 03:48
[2017-06-24] MEDS ORDERED: CARBOXYMETHYLCELLULOSE SODIUM D OP PRN (14:22)
[2017-06-24] MEDS ORDERED: hydrOXYzine pamoate 25 MG CAPSULE PO PRN (14:22)
[2017-06-24] MEDS ORDERED: Acetaminophen 325 MG TABLET PO PRN (14:22)
[2017-06-24] MEDS: D5% in 0.45% NACL 1,000 ML IVC SCH (15:31)
[2017-06-24] MEDS: Melatonin 3 MG TABLET PO SCH (20:29)
[2017-06-24] MEDS: risperiDONE 0.25 MG TABLET PO SCH (20:29)
[2017-06-24] MEDS: Ammonium Lactate 30 APPL/225 GM BOTTLE TP SCH (20:30)
[2017-06-24] MEDS: Latanoprost 2.5 ML BOTTLE BOTH EYES SCH (20:30)
[2017-06-24] MEDS: (Calcium Carbonate/Vitamin D3 [Calcium 600 + Vit D TaB) PO SCH (20:31)
[2017-06-25 01:06] LABS: Eosinophils # 0.4 K/mcL (0.0-0.6); Eosinophils % 9.8 %; Hematocrit 37.1 % (37.5-50.1); Hemoglobin 11.9 g/dL (12.9-16.9); Immature Granulocytes % 0.2 % (0-4); Lymphocytes # 1.1 K/mcL (0.6-4.6); Lymphocytes % 25.6 %; Mean Corpuscular HGB Conc 32.1 g/dL (31.6-35.5); Mean Corpuscular Hemoglobin 30.4 pg (28.0-33.3); Mean Corpuscular Volume 94.9 fL (83.0-100.0); Mean Platelet Volume 9.6 fL (9.4-12.4); Monocytes # 0.6 K/mcL (0.0-1.3); Monocytes % 13.6 %; Neutrophils # 2.1 K/mcL (1.6-8.9); Platelet Count 326 K/mcL (140-400); Red Blood Count 3.91 M/mcL (4.19-5.50); Red Cell Distribution Width 14.8 % (11.5-14.5); Segmented Neutrophils % 49.8 %
[2017-06-25 01:14] LABS: INR 1.4; Prothrombin Time 14.9 Seconds (9.4-12.1)
[2017-06-25 01:17] LABS: Activated Partial Thrombo Time 65.8 Seconds (26.0-36.0)
[2017-06-25 01:37] LABS: Alanine Aminotransferase 14 Units/L (7-52); Albumin 3.2 g/dL (3.5-5.7); Albumin/Globulin Ratio 0.8 (1.1-2.2); Alkaline Phosphatase 55 Units/L (34-104); Aspartate Amino Transferase 25 Units/L (13-39); BUN/Creatinine Ratio 8 (6-26); Bilirubin,Total 0.2 mg/dL (0.3-1.0); Blood Urea Nitrogen 7 mg/dL (6-20); Calcium 8.7 mg/dL (8.6-10.3); Carbon Dioxide 29 mEq/L (23-29); Chloride 103 mEq/L (98-107); Chol/HDL Ratio 2.3 (0-4.9); Cholesterol 93 mg/dL (< 200); Globulin 3.8 g/dL (2.4-3.5); Glucose 99 mg/dL (70-105); HDL Cholesterol 40 mg/dL (40-59); LDL Cholesterol,Calculated 42 mg/dL (0-99); Magnesium 1.8 mg/dL (1.6-2.6); Osmolality,Calculated 282 (280-300); Phosphorous 3.3 mg/dL (2.7-4.5); Potassium 3.5 mEq/L (3.5-5.1); Sodium 137 mEq/L (136-145); Triglycerides 56 mg/dL (< 150); eGFR For African Americans > 60 (> 60); eGFR For Non-African Americans > 60 (> 60)
[2017-06-25] MEDS: D5% in 0.45% NACL 1,000 ML IVC SCH ×2 (04:26→22:55)
[2017-06-25] MEDS ORDERED: Aspirin Enteric Coated 81 MG Tablet PO SCH (09:00)
[2017-06-25] MEDS ORDERED: amLODIPine 5 MG TABLET PO SCH (09:00)
[2017-06-25] MEDS: *HR* Rivaroxaban 10 MG TABLET PO SCH (09:09)
[2017-06-25] MEDS: risperiDONE 0.25 MG TABLET PO SCH ×2 (09:09→21:33)
[2017-06-25] MEDS: Multivit/Ca/Min/Fe/FA 1 TAB TABLET PO SCH (09:09)
[2017-06-25] MEDS: Ammonium Lactate 30 APPL/225 GM BOTTLE TP SCH ×2 (09:17→21:31)
[2017-06-25] MEDS: (Calcium Carbonate/Vitamin D3 [Calcium 600 + Vit D TaB) PO SCH (09:17)
[2017-06-25] MEDS: NALTREXONE HCL 50 MG TABLET PO SCH (11:02)
[2017-06-25] MEDS ORDERED: Artificial Tears SOLN 15 ML BOTTLE OP PRN (15:00)
--- NOTE | 2017-06-25 16:56 | Neurology - Consult Note ---
Date of Encounter: 06/25/17 Time of Encounter: 16:54 Assessment and Plan (1) Right hemisphere, cerebral infarction Current Visit: No Status: Acute Right hemispheric lacunar infarct. Risk factors include hypertension, cigarette smoking, alcohol. We recommended echocardiogram. Duplex Doppler study was normal. Also recommend discontinuing the baby aspirin and increasing it to 325 mg daily. Certainly aggressive management of his diabetes is paramount. Further recommendations will be made pending the outcome of the echocardiogram. Stroke protocol orders should be implemented. A smoking cessation program as well as abstinence from alcohol would be beneficial. History of Present Illness HPI: Mr. Bernal is a 51 year old male with a prior history of cerebral infarct, as well as brittle diabetes was seen for neurologic evaluation secondary to acute onset of left upper and lower extremity paresthesias and weakness. He denies any speech difficulty. He states that the symptoms are present involving the left hand upon awakening from sleep. He did have some difficulty of headache as well. He states that the last time he had a stroke was about a year and a half ago. He has a history of hypertension he does smoke approximately a day drinks about 12 beers a day. MRI scan of the brain completed today does reveal an acute lacunar infarct in right thalamus. Carotid duplex Doppler study is normal. Past Med Surg Social Fam HX - Past Medical History Medical history: COPD, glaucoma, hypertension, seizures, TIA Psychiatric history: anxiety, depression, prior suicide attempt - Past Surgical History Surgical History: other - Social History Smoking Status: Current some day smoker Smokeless Tobacco Status: No Alcohol use: heavy Drug use: none Medications and Allergies Brimonidine Tartrate [Alphagan P] 1 drop LEFT EYE BID 05/06/15 [History] Latanoprost [Xalatan] 1 drop BOTH EYES HS 05/06/15 [History] Docusate Sodium [Colace] 100 mg PO BID PRN 05/29/15 [History] Calcium Carbonate/Vitamin D3 [Calcium 600 + Vit D Tablet] 1 tab PO BID 11/02/16 [History] Ferrous Sulfate [Iron] 325 mg PO BID 11/02/16 [History] RisperiDONE [Risperdal] 0.5 mg PO BID 11/02/16 [History] Atorvastatin [Lipitor] 10 mg PO HS #30 tablet 11/04/16 [Rx] Clopidogrel [Plavix] 75 mg PO DAILY #30 tablet 11/04/16 [Rx] Metoprolol [Lopressor] 25 mg PO BID #30 tablet 11/04/16 [Rx] Carboxymethylcellulose Sodium [Refresh Liquigel] 1 drop BOTH EYES QID PRN [History] Ipratropium/Albuterol Sulfate [Combivent Respimat Inhal [place]] 1 puff IH QID PRN 01/17/17 [History] Melatonin [Melatin] 12 mg PO HS 01/17/17 [History] Omeprazole [PriLOSEC] 20 mg PO DAILY 01/17/17 [History] Rivaroxaban [Xarelto] 20 mg PO DAILY 01/17/17 [History] Thiamine (B-1) [Vitamin B-1] 100 mg PO DAILY #30 tab 01/19/17 [Rx] Acetaminophen [Non-Aspirin] 325 mg PO BID PRN 06/24/17 [History] Amlodipine Besylate 10 mg PO DAILY 06/24/17 [History] Ammonium Lactate [Lac-Hydrin Five] 1 appl TP BID 06/24/17 [History] Multivit-Min/FA/Lycopen/Lutein [A Thru Z Select Multivit Tab] 1 tab PO DAILY [History] Naltrexone HCl [Revia] 50 mg PO DAILY 06/24/17 [History] Polyethylene Glycol 3350 [MiraLAX] 17 gm PO DAILY 06/24/17 [History] Prazosin [Minipress] 1 mg PO HS 06/24/17 [History] Sertraline [Zoloft] 150 mg PO DAILY 06/24/17 [History] hydrOXYzine HCl [Hydroxyzine HCl] 25 mg PO Q6H PRN 06/24/17 [History] 3 Allergy/AdvReac Type Severity Reaction Status Date / Time No Known Allergies Allergy Verified 06/24/17 11:27 All Systems: A 10-system review of systems was performed and is negative for pertinent findings except as documented above in the HPI. Review of Systems: 10 point review of systems is consistent with a history of present illness and otherwise negative. Physical Examination - Vital Signs Vital Signs: Initial Vital Signs Temp Pulse Resp BP Pulse Ox 97.5 F L 58 16 130/90 97 06/24/17 11:12 06/24/17 11:12 06/24/17 11:12 06/24/17 11:12 06/24/17 11:12 - Neurologic Motor examination - right side: 5: deltoids, biceps, triceps, manager workers compensation, hip flexors, tibialis Anterior, quadriceps, toe extension (EHL), plantarflexion Motor examination - left side: 10/09: deltoids, biceps, triceps, hip flexors, manager workers compensation , quadriceps, tibialis Anterior, toe extension (EHL), plantarflexion Detailed sensory examination: other (Hypoesthesia of the left arm and leg.) Mental Status Examination: awake, alert, oriented to person, oriented to place, oriented to time, follows commands appropriately, answers questions appropriately, no agnosia, no aphasia, no aproxia Cranial nerve examination: PERRL, EOMI, sensory to face intact, mastication intact, no facial asymmetry is present, no dysarthria, hearing is intact symmetrically, tongue protrudes midline Cerebellar examination: no dysmetria (There is no ataxia of the left upper extremity when performing finger to nose testing.), performs finger to nose and heel to healy symmetrically without ataxia, no gait ataxia, no truncal ataxia, no difficulty with rapid alternating movements Results - Laboratory Findings CBC and BMP: 06/25/17 00:22 06/25/17 00:22 Abnormal lab findings: Abnormal lab results WBC 4.2 K/mcL (4.3-11.1) L 06/25/17 00:22 RBC 3.91 M/mcL (4.19-5.50) L 06/25/17 00:22 Hgb 11.9 g/dL (12.9-16.9) L 06/25/17 00:22 Hct 37.1 % (37.5-50.1) L 06/25/17 00:22 RDW 14.8 % (11.5-14.5) H 06/25/17 00:22 PT 14.9 Seconds (9.4-12.1) H 06/25/17 00:22 APTT 65.8 Seconds (26.0-36.0) H 06/25/17 00:22 POC Glucose 98 (58-89) H 06/25/17 02:18 Total Bilirubin 0.2 mg/dL (0.3-1.0) L 06/25/17 00:22 Albumin 3.2 g/dL (3.5-5.7) L 06/25/17 00:22 Globulin 3.8 g/dL (2.4-3.5) H 06/25/17 00:22 Albumin/Globulin Ratio 0.8 (1.1-2.2) L 06/25/17 00:22 Consult Discharge Plan - Plan [facility]errals: [facility] [Primary Care Provider] -
--- NOTE | 2017-06-25 17:03 | ENT - Consult Note ---
Date of Encounter: 06/25/17 Time of Encounter: 17:00 Assessment and Plan (1) Nasal polyps Current Visit: Yes Status: Acute I spoke with the [employer] Hospitalist regarding the patient. This does not appear to be a new problem but he is having an exacerbation of the nasal problems. As such if he is medically stable for oral steroids, a tapering dose of prednisone may give him some temporary relief. He may also benefit for nasal steroids such as Fluticasone. We would be happy to f/u with him in the outpatient ENT clinic if desired. History of Present Illness Consult date: 06/25/17 Reason for ENT Consult: other (sinus findings on CT) History of present illness: 51 yo male admitted for stroke like symptoms and incidental finding of sinus opacification noted on CT of brain. I reviewed the Current CT as well as two others dating back to 04/2015. On all of the imaging there is evidence of opacification of the sinuses and nasal polyps. This does appear worse currently. Per the patient he has nasal congestion that waxes and wanes but is problematic currently. He has never been seen by a specialist for this issue. Past Med Surg Social Fam HX - Past Medical History Medical history: COPD, glaucoma, hypertension, seizures, TIA Psychiatric history: anxiety, depression, prior suicide attempt - Past Surgical History Surgical History: other - Social History Smoking Status: Current some day smoker Smokeless Tobacco Status: No Alcohol use: heavy Drug use: none Medications and Allergies Brimonidine Tartrate [Alphagan P] 1 drop LEFT EYE BID 05/06/15 [History] Latanoprost [Xalatan] 1 drop BOTH EYES HS 05/06/15 [History] Docusate Sodium [Colace] 100 mg PO BID PRN 05/29/15 [History] Calcium Carbonate/Vitamin D3 [Calcium 600 + Vit D Tablet] 1 tab PO BID 11/02/16 [History] Ferrous Sulfate [Iron] 325 mg PO BID 11/02/16 [History] RisperiDONE [Risperdal] 0.5 mg PO BID 11/02/16 [History] Atorvastatin [Lipitor] 10 mg PO HS #30 tablet 11/04/16 [Rx] Clopidogrel [Plavix] 75 mg PO DAILY #30 tablet 11/04/16 [Rx] Metoprolol [Lopressor] 25 mg PO BID #30 tablet 11/04/16 [Rx] Carboxymethylcellulose Sodium [Refresh Liquigel] 1 drop BOTH EYES QID PRN [History] Ipratropium/Albuterol Sulfate [Combivent Respimat Inhal [place]] 1 puff IH QID PRN 01/17/17 [History] Melatonin [Melatin] 12 mg PO HS 01/17/17 [History] Omeprazole [PriLOSEC] 20 mg PO DAILY 01/17/17 [History] Rivaroxaban [Xarelto] 20 mg PO DAILY 01/17/17 [History] Thiamine (B-1) [Vitamin B-1] 100 mg PO DAILY #30 tab 01/19/17 [Rx] Acetaminophen [Non-Aspirin] 325 mg PO BID PRN 06/24/17 [History] Amlodipine Besylate 10 mg PO DAILY 06/24/17 [History] Ammonium Lactate [Lac-Hydrin Five] 1 appl TP BID 06/24/17 [History] Multivit-Min/FA/Lycopen/Lutein [A Thru Z Select Multivit Tab] 1 tab PO DAILY [History] Naltrexone HCl [Revia] 50 mg PO DAILY 06/24/17 [History] Polyethylene Glycol 3350 [MiraLAX] 17 gm PO DAILY 06/24/17 [History] Prazosin [Minipress] 1 mg PO HS 06/24/17 [History] Sertraline [Zoloft] 150 mg PO DAILY 06/24/17 [History] hydrOXYzine HCl [Hydroxyzine HCl] 25 mg PO Q6H PRN 06/24/17 [History] 3 Allergy/AdvReac Type Severity Reaction Status Date / Time No Known Allergies Allergy Verified 06/24/17 11:27 ENT Exam Initial Vital Signs Temp Pulse Resp BP Pulse Ox 97.5 F L 58 16 130/90 97 06/24/17 11:12 06/24/17 11:12 06/24/17 11:12 06/24/17 11:12 06/24/17 11:12 - General physical appearance well developed, well nourished, no distress (Hyponasal voice and sniffing) - ENT Other (ears - normal external aud canals and Tymapnic membranes bilateral, nose - bilateral obstructing nasal polyps) Exam Initial Vital Signs Temp Pulse Resp BP Pulse Ox 97.5 F L 58 16 130/90 97 06/24/17 11:12 06/24/17 11:12 06/24/17 11:12 06/24/17 11:12 06/24/17 11:12 Results - Labs 06/25/17 00:22 06/25/17 00:22 Abnormal lab results WBC 4.2 K/mcL (4.3-11.1) L 06/25/17 00:22 RBC 3.91 M/mcL (4.19-5.50) L 06/25/17 00:22 Hgb 11.9 g/dL (12.9-16.9) L 06/25/17 00:22 Hct 37.1 % (37.5-50.1) L 06/25/17 00:22 RDW 14.8 % (11.5-14.5) H 06/25/17 00:22 PT 14.9 Seconds (9.4-12.1) H 06/25/17 00:22 APTT 65.8 Seconds (26.0-36.0) H 06/25/17 00:22 POC Glucose 98 (58-89) H 06/25/17 02:18 Total Bilirubin 0.2 mg/dL (0.3-1.0) L 06/25/17 00:22 Albumin 3.2 g/dL (3.5-5.7) L 06/25/17 00:22 Globulin 3.8 g/dL (2.4-3.5) H 06/25/17 00:22 Albumin/Globulin Ratio 0.8 (1.1-2.2) L 06/25/17 00:22 Diabetes panel 06/25/17 Range/Units 00:22 Sodium 137 (136-145) mEq/L Potassium 3.5 (3.5-5.1) mEq/L Chloride 103 (98-107) mEq/L Carbon Dioxide 29 (23-29) mEq/L BUN 7 (6-20) mg/dL Creatinine 0.85 (0.70-1.30) mg/dL Glucose 99 (70-105) mg/dL Calcium 8.7 (8.6-10.3) mg/dL AST 25 (13-39) Units/L ALT 14 (7-52) Units/L Alkaline Phosphatase 55 (34-104) Units/L Albumin 3.2 L (3.5-5.7) g/dL Triglycerides 56 (< 150) mg/dL HDL Cholesterol 40 (40-59) mg/dL Calcium panel 06/25/17 Range/Units 00:22 Calcium 8.7 (8.6-10.3) mg/dL Phosphorus 3.3 (2.7-4.5) mg/dL Albumin 3.2 L (3.5-5.7) g/dL Pituitary panel 06/25/17 Range/Units 00:22 Sodium 137 (136-145) mEq/L Potassium 3.5 (3.5-5.1) mEq/L Chloride 103 (98-107) mEq/L Carbon Dioxide 29 (23-29) mEq/L BUN 7 (6-20) mg/dL Creatinine 0.85 (0.70-1.30) mg/dL Glucose 99 (70-105) mg/dL Calcium 8.7 (8.6-10.3) mg/dL Adrenal panel 06/25/17 Range/Units 00:22 Sodium 137 (136-145) mEq/L Potassium 3.5 (3.5-5.1) mEq/L Chloride 103 (98-107) mEq/L Carbon Dioxide 29 (23-29) mEq/L BUN 7 (6-20) mg/dL Creatinine 0.85 (0.70-1.30) mg/dL Glucose 99 (70-105) mg/dL Calcium 8.7 (8.6-10.3) mg/dL Total Bilirubin 0.2 L (0.3-1.0) mg/dL AST 25 (13-39) Units/L ALT 14 (7-52) Units/L Alkaline Phosphatase 55 (34-104) Units/L Albumin 3.2 L (3.5-5.7) g/dL All other labs normal. Consult Discharge Plan - Plan [facility]errals: [facility] [Primary Care Provider] -
--- NOTE | 2017-06-25 17:10 | Internal Med Progress Note ---
Date of Encounter: 06/25/17 Time of Encounter: 17:09 - Time Spent With Patient CVA: prior history of cerebral infarct. [facility] left upper and left lower extremity paresthesia and weakness. Head CT nonacute. Brain MRI with acute/early subacute right thalamus lacunar infarct. Still with left upper and lower extremity weakness. Bilateral carotid Dopplers unremarkable. Holding home BP medications to allow for permissive hypertension. Continue Xarelto, plavix. Increase ASA to full dose per neurology recommendation. Cont statin. Neurology following. Echo pending Nasal polyps: head CT extensive sinusitis, colonization with nonevasive fungus or polyps. Evaluated by ENT who suspects nasal polyps and recommended intranasal steroid and oral tapering steroid. Will need to follow up with ENT outpatient. HTN: per hx. holding home BP medications to allow for permissive hypertension. Resume home BP medications 06/26 Seizure disorder: per hx but not on AEDs for unknown reason. Patient unsure of medication list. Last seizure unknown; patient states " long time ago". Seizure precautions Etoh abuse: History alcoholism. Last alcohol drink 5 days prior to admission. No evidence of withdrawal. Hypoglycemia: Etiology unclear. Blood glucose 28 on arrival. Reportedly was asymptomatic. Continue frequent blood sugar checks. Tolerating regular diet. DVT prophyalxis: Xarelto less than 15 minutes - Subjective Interval history: Seen and examined at bedside. Patient is new to me, information obtained from chart review and patient report. Patient says he feels like he did the last time he had a stroke. Says he knows what he wants to say but is having trouble expressing that. No double or blurred vision. He does have left-sided weakness. No chest pain or shortness of breath. - Constitutional Vitals: Temp Pulse Resp BP Pulse Ox 97.7 F 60 16 119/79 98 06/25/17 16:17 06/25/17 16:17 06/25/17 16:17 06/25/17 16:17 06/25/17 16:17 General appearance: Present: A&O X 3, pleasant, no acute distress, answers questions appropriately - Head Head exam: Present: atraumatic, normocephalic - Eye Eye exam: Present: PERRL, conjuntiva pink, sclera anicteric Pupils: Present: PERRL - Neck Neck exam general surgery: Present: supple, trachea midline. Absent: lymphadenopathy - Respiratory Respiratory exam: Present: CTAB. Absent: accessory muscle use, rales, rhonchi, wheezes - Cardiovascular Cardiovascular exam: Present: RRR, +S1, +S2. Absent: diastolic murmur, gallop, rubs, systolic murmur - GI/Abdominal GI/Abdominal exam: Present: normal bowel sounds, soft, no peritoneal signs. Absent: distended, tenderness - Extremities Exam Extremities exam: Present: warm, radial pulses palpable and symmetrical. Absent : calf tenderness, cyanotic, pedal edema - Neurological Exam Neurological exam: Present: CN II-XII intact, oriented X3, no focal deficits. Absent: strengths equal and symetr throughout, pronater drift, facial droop, speech deficit Additional comments: Left-sided upper and lower extreme weakness - Skin Skin exam: Present: dry, intact Internal Medicine: Result - Labs CBC & Chem 7: 06/25/17 00:22 06/25/17 00:22 Labs: Short CBC 06/25/17 Range/Units 00:22 WBC 4.2 L (4.3-11.1) K/mcL Hgb 11.9 L (12.9-16.9) g/dL Hct 37.1 L (37.5-50.1) % Plt Count 326 (140-400) K/mcL Neutrophils # 2.1 (1.6-8.9) K/mcL BMP 06/25/17 00:22 Sodium 137 Potassium 3.5 Chloride 103 Carbon Dioxide 29 BUN 7 Creatinine 0.85 Glucose 99 Calcium 8.7 Cardiac Enzymes 06/24/17 06/25/17 06/25/17 Range/Units 18:04 00:22 04:04 Troponin I < 0.03 < 0.03 < 0.03 (< 0.04) ng/mL Liver Function 06/25/17 Range/Units 00:22 Total Bilirubin 0.2 L (0.3-1.0) mg/dL AST 25 (13-39) Units/L ALT 14 (7-52) Units/L Alkaline Phosphatase 55 (34-104) Units/L Albumin 3.2 L (3.5-5.7) g/dL - ABG Interpretation ABG results: PT/INR, D-dimer PT 14.9 Seconds (9.4-12.1) H 06/25/17 00:22 - Impressions Impressions Brain MRI 06/25/17 08:02 IMPRESSION: 1. Acute/early subacute lacunar infarction in the right superior thalamus. No associated hemorrhage. 2. No evidence of mesial temporal sclerosis. 3. Extensive sinonasal polyposis. There are inspissated secretions or chronic noninvasive fungal colonization in the maxillary sinuses. 4. Mild diffuse brain parenchymal volume loss. Sequela of mild chronic microvascular ischemic changes. Old right parietal lobe infarction. The findings were sent to the Radiology Results Communication [facility] at 1:08 pm on 06/25/2017to be communicated to a licensed caregiver. D/ / 06/25/2017 13:29:00 Michelle Maguire MD / bcarter Interpreting Provider: Michelle Maguire MD - VTE Documentation of Mechanical Device: Graduated compression elastic hosiery Consult Discharge Plan - Plan Referrals: [facility] [Primary Care Provider] -
[2017-06-25] MEDS: Fluticasone Propionate Nasal 50 MCG/SPRAY BOTTLE NS SCH (18:00)
--- NOTE | 2017-06-25 18:39 | Electrocardiograph Report ---
[place] [id number] Test Date: 2017-06-24 Pat Name: Hossein Bernal Department: 103 Room: 3B44 Gender: M Performance Consultant: KECIA : [id number] Requested By: Hossein Grant Order Number: [id number] Reading MD: Leonid Herbert DO Measurements Intervals [place] Rate: 50 P: 62 WI: 247 QRS: -11 QRSD: 103 T: 25 QT: 478 QTc: 453 Interpretive Statements SINUS BRADYCARDIA WITH FIRST DEGREE AV BLOCK INCOMPLETE RIGHT BUNDLE BRANCH BLOCK Electronically Signed On 06-25-2017 18:37:37 EST by Leonid Herbert DO
[2017-06-25] MEDS: D10% in Water 500 ML IVC SCH (21:30)
[2017-06-25] MEDS: Melatonin 3 MG TABLET PO SCH (21:32)
[2017-06-25] MEDS: Latanoprost 2.5 ML BOTTLE BOTH EYES SCH (21:33)
[2017-06-26] MEDS: D10% in Water 500 ML IVC SCH ×5 (05:07→23:03)
[2017-06-26 05:50] LABS: Hematocrit 36.1 % (37.5-50.1); Hemoglobin 11.6 g/dL (12.9-16.9); Mean Corpuscular HGB Conc 32.1 g/dL (31.6-35.5); Mean Corpuscular Hemoglobin 30.4 pg (28.0-33.3); Mean Corpuscular Volume 94.8 fL (83.0-100.0); Mean Platelet Volume 9.5 fL (9.4-12.4); Platelet Count 325 K/mcL (140-400); Red Blood Count 3.81 M/mcL (4.19-5.50); Red Cell Distribution Width 14.7 % (11.5-14.5)
[2017-06-26 05:56] LABS: Hemoglobin A1C 5.4 %
[2017-06-26 06:09] LABS: BUN/Creatinine Ratio 9 (6-26); Blood Urea Nitrogen 7 mg/dL (6-20); Calcium 8.7 mg/dL (8.6-10.3); Carbon Dioxide 29 mEq/L (23-29); Chloride 105 mEq/L (98-107); Glucose 92 mg/dL (70-105); Osmolality,Calculated 290 (280-300); Potassium 3.4 mEq/L (3.5-5.1); Sodium 141 mEq/L (136-145); eGFR For African Americans > 60 (> 60); eGFR For Non-African Americans > 60 (> 60)
--- NOTE | 2017-06-26 08:56 | Internal Med Progress Note ---
Date of Encounter: 06/26/17 Time of Encounter: 08:45 - Assessment and plan (1) Stroke Current Visit: No Status: Acute Assessment and plan: Seen by neurology. The patient was on both aspirin and Plavix and xarelto. He is currently on Plavix and Xarelto. We will have to sort out exactly what needs to be done at discharge. He is on a statin. I have ordered an echocardiogram to complete workup for stroke. He has no neurological deficits anymore. Continue with neurological checks. He is working with PT. Qualifiers: CVA mechanism: occlusion Precerebral and cerebral artery: vertebral artery Laterality of affected vessel: right Qualified Code(s): I63.211 - Cerebral infarction due to unspecified occlusion or stenosis of right vertebral artery (2) Hypoglycemia Current Visit: Yes Status: Acute Assessment and plan: Not exactly sure why this is happening. He continues to be asymptomatic. He is having low sugars this morning despite being on D10. Turning at 50 I have increased it to 100. His sugar reading was 62 this morning. This was after eating breakfast. He is also on prednisone which should boost up his glucose. I have ordered some labs including prone insulin C-peptide total insulin levels. We will continue with Accu-Cheks every 2 hours. (3) Nasal polyps Current Visit: Yes Status: Acute Assessment and plan: Seen by ENT. Started on Flonase and is on a prednisone taper. (4) Hypertension Current Visit: No Status: Chronic Assessment and plan: Blood pressure seems to be stable. Continue with metoprolol and Norvasc Qualifiers: Hypertension type: essential hypertension Qualified Code(s): I10 - Essential (primary) hypertension (5) Depression Current Visit: No Status: Chronic Assessment and plan: Continue with home antidepressants Qualifiers: Depression Type: major depressive disorder Major depression recurrence: recurrent Active/Remission status: currently active Major depression episode severity: severe Psychotic features: without psychotic features Qualified Code(s): F33.2 - Major depressive disorder, recurrent severe without psychotic features (6) Seizures Current Visit: No Status: Ruled-out Assessment and plan: No signs of seizures in the hospital. There is a reported seizure at home. I am not exactly sure if it was real. He did have low glucose here in the hospital and on arrival. I am not sure this was induced by the low sugars. Neurology is following. (7) Alcohol abuse Current Visit: No Status: Chronic Assessment and plan: Counseled. No signs of withdrawal. (8) DVT prophylaxis Current Visit: No Status: Acute Assessment and plan: He is on Zaroxolyn not exactly sure why he is on that. - Subjective Interval history: Patient was seen and examined. He was admitted with a new CVA. This does not seem to be the issue anymore. He within dealing with hypoglycemia requiring D10 drip. Continues to have low glucose despite the clear. It is running at 50 mL an hour. He is not on any oral hypoglycemic. Denies any numbness tingling. He is on xarelto. Not exactly sure why he is on that. - Constitutional Vitals: Temp Pulse Resp BP Pulse Ox 97.5 F L 57 18 121/78 96 06/26/17 07:30 06/26/17 07:30 06/26/17 07:30 06/26/17 07:30 06/26/17 07:30 General appearance: Present: A&O X 3, pleasant, no acute distress, answers questions appropriately Exam: GEN: NAD CVS: RRR. S1, S2, No m/r/g RESP: CTAB ABD: Soft, NT, ND, +BS EXT: No edema. 2+ DP, No rashes NEURO: Nonfocal Internal Medicine: Result - Labs CBC & Chem 7: 06/26/17 05:04 06/26/17 05:04 Labs: Short CBC 06/26/17 Range/Units 05:04 WBC 4.0 L (4.3-11.1) K/mcL Hgb 11.6 L (12.9-16.9) g/dL Hct 36.1 L (37.5-50.1) % Plt Count 325 (140-400) K/mcL BMP 06/26/17 05:04 Sodium 141 Potassium 3.4 L Chloride 105 Carbon Dioxide 29 BUN 7 Creatinine 0.81 Glucose 92 Calcium 8.7 - ABG Interpretation ABG results: PT/INR, D-dimer PT 14.9 Seconds (9.4-12.1) H 06/25/17 00:22 - Impressions Impressions Brain MRI 06/25/17 08:02 IMPRESSION: 1. Acute/early subacute lacunar infarction in the right superior thalamus. No associated hemorrhage. 2. No evidence of mesial temporal sclerosis. 3. Extensive sinonasal polyposis. There are inspissated secretions or chronic noninvasive fungal colonization in the maxillary sinuses. 4. Mild diffuse brain parenchymal volume loss. Sequela of mild chronic microvascular ischemic changes. Old right parietal lobe infarction. The findings were sent to the Radiology Results Communication [facility] at 1:08 pm on 06/25/2017to be communicated to a licensed caregiver. D/ / 06/25/2017 13:29:00 Michelle Maguire MD / bcarter Interpreting Provider: Michelle Maguire MD - VTE Documentation of Mechanical Device: Graduated compression elastic hosiery Consult Discharge Plan - Plan [facility]errals: [facility] [Primary Care Provider] -
[2017-06-26] MEDS: Multivit/Ca/Min/Fe/FA 1 TAB TABLET PO SCH (10:00)
[2017-06-26] MEDS: *HR* Rivaroxaban 10 MG TABLET PO SCH (10:00)
[2017-06-26] MEDS: predniSONE 20 MG TABLET PO SCH ×2 (10:01→16:30)
[2017-06-26] MEDS: Cholecalciferol (D-3) 1,000 UNIT TABLET PO SCH (10:02)
[2017-06-26] MEDS: risperiDONE 0.25 MG TABLET PO SCH ×2 (10:02→21:09)
[2017-06-26] MEDS: Fluticasone Propionate Nasal 50 MCG/SPRAY BOTTLE NS SCH (10:14)
[2017-06-26] MEDS: Ammonium Lactate 30 APPL/225 GM BOTTLE TP SCH ×2 (10:14→21:07)
[2017-06-26] MEDS: NALTREXONE HCL 50 MG TABLET PO SCH (11:14)
--- NOTE | 2017-06-26 17:22 | Neurology Progress Note ---
Date of Encounter: 06/26/17 Time of Encounter: 17:20 Assessment and Plan (1) Right hemisphere, cerebral infarction Current Visit: No Status: Acute MRI scan of the brain revealed an acute right thalamic lacunar infarct. Certainly he has risk factors for this. He had a repeat CT scan of his head today for similar symptoms which was unrevealing. Currently he is on Plavix and Xarelto. The reason he is on Xarelto is not completely clear. His echocardiogram did reveal evidence of moderate left ventricular diastolic dysfunction. Perhaps this is why he is on the Xarelto. In any regard he has subtle weakness of the left upper and left lower extremity but he still maintains functional strength. Risk factor management which would include aggressive management of his diabetes certainly going to be paramount. Recommend maintaining the Xarelto and Plavix. Smoking cessation and abstinence from alcohol is highly advisable. I will reevaluate him at your request. Subjective Interval history: The chart was reviewed, patient was seen and examined. Upon my entering the room he was laying in bed resting comfortably watching television. He is curious to know about the CAT scan from earlier today. Apparently he felt symptoms that he identifies as being similar to what he experienced with his previous strokes. He felt as though his left hand was going numb. CT of the scan was normal and no different from the previous study. Vital signs stable. The echocardiogram reveals moderate left ventricular diastolic dysfunction. Perhaps this is why he is on anticoagulation. Objective - Constitutional Vitals: Temp Pulse Resp BP Pulse Ox 98.8 F 67 19 119/79 94 06/26/17 15:24 06/26/17 15:24 06/26/17 15:24 06/26/17 15:24 06/26/17 15:24 - Neurological Exam Motor examination - right side: 5/5: deltoids, biceps, triceps, cyber ops planner, hip flexors, tibialis Anterior, quadriceps, toe extension (EHL), plantarflexion Motor examination - left side: 4/5: deltoids, biceps, triceps, hip flexors, cyber ops planner , quadriceps, tibialis Anterior, toe extension (EHL), plantarflexion Sensation intact: Present: other (Hypoesthesia of the left arm and leg.) Mental Status Examination: Present: awake, alert, oriented to person, oriented to place, oriented to time, follows commands appropriately, answers questions appropriately, no agnosia, no aphasia, no aproxia Cranial nerve examination: Present: PERRL, EOMI, sensory to face intact, mastication intact, no facial asymmetry is present, no dysarthria, hearing is intact symmetrically, tongue protrudes midline Cerebellar examination: Present: no dysmetria (There is no ataxia of the left upper extremity when performing finger to nose testing.), performs finger to nose and heel to healy symmetrically without ataxia, no gait ataxia, no truncal ataxia, no difficulty with rapid alternating movements - VTE Documentation of Mechanical Device: Graduated compression elastic hosiery Results - Laboratory Findings CBC and BMP: 06/26/17 05:04 06/26/17 05:04 Abnormal lab findings: Abnormal lab results WBC 4.0 K/mcL (4.3-11.1) L 06/26/17 05:04 RBC 3.81 M/mcL (4.19-5.50) L 06/26/17 05:04 Hgb 11.6 g/dL (12.9-16.9) L 06/26/17 05:04 Hct 36.1 % (37.5-50.1) L 06/26/17 05:04 RDW 14.7 % (11.5-14.5) H 06/26/17 05:04 PT 14.9 Seconds (9.4-12.1) H 06/25/17 00:22 APTT 65.8 Seconds (26.0-36.0) H 06/25/17 00:22 Potassium 3.4 mEq/L (3.5-5.1) L 06/26/17 05:04 POC Glucose 99 (58-89) H 06/26/17 15:13 Total Bilirubin 0.2 mg/dL (0.3-1.0) L 06/25/17 00:22 Albumin 3.2 g/dL (3.5-5.7) L 06/25/17 00:22 Globulin 3.8 g/dL (2.4-3.5) H 06/25/17 00:22 Albumin/Globulin Ratio 0.8 (1.1-2.2) L 06/25/17 00:22 Consult Discharge Plan - Plan [facility]errals: [facility] [Primary Care Provider] -
[2017-06-26] MEDS: Melatonin 3 MG TABLET PO SCH (21:09)
[2017-06-26] MEDS: Latanoprost 2.5 ML BOTTLE BOTH EYES SCH (21:13)
[2017-06-27] MEDS: D10% in Water 500 ML IVC SCH (04:20)
[2017-06-27 05:42] LABS: BUN/Creatinine Ratio 11 (6-26); Blood Urea Nitrogen 8 mg/dL (6-20); Calcium 9.4 mg/dL (8.6-10.3); Carbon Dioxide 28 mEq/L (23-29); Chloride 103 mEq/L (98-107); Glucose 173 mg/dL (70-105); Osmolality,Calculated 282 (280-300); Potassium 3.6 mEq/L (3.5-5.1); Sodium 135 mEq/L (136-145); eGFR For African Americans > 60 (> 60); eGFR For Non-African Americans > 60 (> 60)
[2017-06-27 06:02] LABS: Basophils % 0.2 %; Eosinophils % 0.4 %; Hematocrit 36.6 % (37.5-50.1); Hemoglobin 11.6 g/dL (12.9-16.9); Immature Granulocytes % 0.5 % (0-4); Lymphocytes # 0.9 K/mcL (0.6-4.6); Lymphocytes % 15.1 %; Mean Corpuscular HGB Conc 31.7 g/dL (31.6-35.5); Mean Corpuscular Hemoglobin 29.7 pg (28.0-33.3); Mean Corpuscular Volume 93.8 fL (83.0-100.0); Mean Platelet Volume 9.6 fL (9.4-12.4); Monocytes # 0.4 K/mcL (0.0-1.3); Monocytes % 7.7 %; Neutrophils # 4.3 K/mcL (1.6-8.9); Platelet Count 380 K/mcL (140-400); Red Cell Distribution Width 14.6 % (11.5-14.5); Segmented Neutrophils % 76.1 %
[2017-06-27] MEDS: risperiDONE 0.25 MG TABLET PO SCH ×2 (08:06→20:29)
[2017-06-27] MEDS: *HR* Rivaroxaban 10 MG TABLET PO SCH (08:06)
[2017-06-27] MEDS: Cholecalciferol (D-3) 1,000 UNIT TABLET PO SCH (08:06)
[2017-06-27] MEDS: Ammonium Lactate 30 APPL/225 GM BOTTLE TP SCH ×2 (08:11→20:30)
[2017-06-27] MEDS: Fluticasone Propionate Nasal 50 MCG/SPRAY BOTTLE NS SCH (08:12)
[2017-06-27] MEDS: Multivit/Ca/Min/Fe/FA 1 TAB TABLET PO SCH (08:13)
--- NOTE | 2017-06-27 08:29 | Internal Med Progress Note ---
Date of Encounter: 06/27/17 Time of Encounter: 08:25 - Assessment and plan (1) Stroke Current Visit: No Status: Acute Assessment and plan: Seen by neurology. He continues to be on Plavix and xarelto. He is apparently also on aspirin. We will need to discuss with neurology whether they want him on all 3 agents. He is on a statin. Echo was done with no PFO. Continue to work with PT. Plan is to go back to [place]. Qualifiers: CVA mechanism: occlusion Precerebral and cerebral artery: vertebral artery Laterality of affected vessel: right Qualified Code(s): I63.211 - Cerebral infarction due to unspecified occlusion or stenosis of right vertebral artery (2) Hypoglycemia Current Visit: Yes Status: Acute Assessment and plan: Not exactly sure why this is happening. He continues to be asymptomatic. Hypoglycemia workup has been sent yesterday. Plan for today is to discontinue the D10 and see how he does. c/w accu-cheks Q2hrs. the patient has been educated on hypoglycemia symptoms. He is also on prednisone which should boost up his glucose. (3) Nasal polyps Current Visit: Yes Status: Acute Assessment and plan: Seen by ENT. Started on Flonase and is on a prednisone taper. (4) Hypertension Current Visit: No Status: Chronic Assessment and plan: Blood pressure seems to be stable. Continue with metoprolol and Norvasc Qualifiers: Hypertension type: essential hypertension Qualified Code(s): I10 - Essential (primary) hypertension (5) Depression Current Visit: No Status: Chronic Assessment and plan: Continue with home antidepressants Qualifiers: Depression Type: major depressive disorder Major depression recurrence: recurrent Active/Remission status: currently active Major depression episode severity: severe Psychotic features: without psychotic features Qualified Code(s): F33.2 - Major depressive disorder, recurrent severe without psychotic features (6) Seizures Current Visit: No Status: Ruled-out Assessment and plan: No signs of seizures in the hospital. There is a reported seizure at home. I am not exactly sure if it was real. He did have low glucose here in the hospital and on arrival. I am not sure this was induced by the low sugars. Neurology is following. (7) Alcohol abuse Current Visit: No Status: Chronic (8) DVT prophylaxis Current Visit: No Status: Acute Assessment and plan: He is on Zaroxolyn not exactly sure why he is on that. - Subjective Interval history: Patient was seen and examined. He was admitted with a new CVA. He had issues with numbness yesterday on the left side for which a CT head was done and was unremarkable. He has not had any hypoglycemic episodes however he has been maintained on the D10 drip. he feels well this morning. - Constitutional Vitals: Temp Pulse Resp BP Pulse Ox 97.4 F L 64 16 106/69 93 06/27/17 06:56 06/27/17 06:56 06/27/17 06:56 06/27/17 06:56 06/27/17 06:56 General appearance: Present: A&O X 3, pleasant, no acute distress, answers questions appropriately Exam: GEN: NAD CVS: RRR. S1, S2, No m/r/g RESP: CTAB ABD: Soft, NT, ND, +BS EXT: No edema. 2+ DP, No rashes NEURO: Nonfocal Internal Medicine: Result - Labs CBC & Chem 7: 06/27/17 04:34 06/27/17 04:34 Labs: Short CBC 06/27/17 Range/Units 04:34 WBC 5.7 (4.3-11.1) K/mcL Hgb 11.6 L (12.9-16.9) g/dL Hct 36.6 L (37.5-50.1) % Plt Count 380 (140-400) K/mcL Neutrophils # 4.3 (1.6-8.9) K/mcL BMP 06/27/17 04:34 Sodium 135 L Potassium 3.6 Chloride 103 Carbon Dioxide 28 BUN 8 Creatinine 0.73 Glucose 173 H Calcium 9.4 - ABG Interpretation ABG results: PT/INR, D-dimer PT 14.9 Seconds (9.4-12.1) H 06/25/17 00:22 - Impressions Impressions Brain MRI 06/25/17 08:02 IMPRESSION: 1. Acute/early subacute lacunar infarction in the right superior thalamus. No associated hemorrhage. 2. No evidence of mesial temporal sclerosis. 3. Extensive sinonasal polyposis. There are inspissated secretions or chronic noninvasive fungal colonization in the maxillary sinuses. 4. Mild diffuse brain parenchymal volume loss. Sequela of mild chronic microvascular ischemic changes. Old right parietal lobe infarction. The findings were sent to the [facility]iology [facility] at 1:08 pm on 06/25/2017to be communicated to a licensed caregiver. D/ / 06/25/2017 13:29:00 Michelle Maguire MD / nan Interpreting Provider: Michelle Maguire MD Echocardiogram 06/25/17 17:25 Impressions: LVEF 60%. Normal LV chamber size, wall thickness and function. Moderate left ventricular diastolic dysfunction. Normal right ventricular structure and function. No evidence of PFO with agitated saline contrast. Mild pulmonary hypertension. No significant valvular dysfunction. Left Ventricular Wall Motion: Rest Echo Findings All wall segments showed normal motion. Findings: Study Quality * Technically adequate exam. ECG Findings * Normal sinus rhythm. Left Ventricle * LVEF 60%. * Normal LV chamber size, wall thickness and function. * Moderate left ventricular diastolic dysfunction. Right Ventricle * Normal right ventricular structure and function. Left Atrium * Moderately dilated left atrium. Right Atrium * Mildly dilated right atrium. Interatrial Septum * No evidence of PFO with agitated saline contrast. Aortic Valve * Trileaflet aortic valve with normal function. * No aortic regurgitation. * No aortic stenosis. Mitral Valve * Normal mitral valve structure and function. * No mitral regurgitation. * No mitral stenosis. Tricuspid Valve * Normal tricuspid valve structure and function. * Trace tricuspid regurgitation. * Mild pulmonary hypertension. Pulmonic Valve * Normal pulmonic valve structure and function. * No pulmonic regurgitation. Aorta * Normally sized aortic root. Pericardium * The pericardium appears normal. IVC * Normal IVC dimensions and inspiratory collapse. Pulmonary Artery * Normal visualized portions of the main pulmonary artery. Head CT 06/26/17 10:08 IMPRESSION: No acute intracranial abnormality. Extensive sinus disease, unchanged from 2 days prior. Consider follow-up ENT consultation D/ / Jan Moreno MD / Jan Moreno MD Interpreting Provider: Jan Moreno MD - VTE Documentation of Mechanical Device: Graduated compression elastic hosiery Consult Discharge Plan - Plan [facility]errals: [facility] [Primary Care Provider] -
[2017-06-27] MEDS: predniSONE 20 MG TABLET PO SCH ×2 (09:35→16:08)
[2017-06-27] MEDS: NALTREXONE HCL 50 MG TABLET PO SCH (09:35)
[2017-06-27 15:18] LABS: Insulin, Free 25 uIU/mL (3-19)
[2017-06-27] MEDS: Melatonin 3 MG TABLET PO SCH (20:29)
[2017-06-27] MEDS: Latanoprost 2.5 ML BOTTLE BOTH EYES SCH (20:30)
[2017-06-28 06:40] LABS: BUN/Creatinine Ratio 11 (6-26); Blood Urea Nitrogen 9 mg/dL (6-20); Calcium 9.5 mg/dL (8.6-10.3); Carbon Dioxide 26 mEq/L (23-29); Chloride 106 mEq/L (98-107); Glucose 88 mg/dL (70-105); Osmolality,Calculated 284 (280-300); Potassium 3.7 mEq/L (3.5-5.1); Sodium 138 mEq/L (136-145); eGFR For African Americans > 60 (> 60); eGFR For Non-African Americans > 60 (> 60)
[2017-06-28 06:55] LABS: Hematocrit 38.5 % (37.5-50.1); Hemoglobin 12.5 g/dL (12.9-16.9); Mean Corpuscular HGB Conc 32.5 g/dL (31.6-35.5); Mean Corpuscular Hemoglobin 30.2 pg (28.0-33.3); Mean Platelet Volume 9.5 fL (9.4-12.4); Platelet Count 401 K/mcL (140-400); Red Blood Count 4.14 M/mcL (4.19-5.50); Red Cell Distribution Width 14.9 % (11.5-14.5)
[2017-06-28] MEDS: D10% in Water 500 ML IVC SCH ×4 (08:05→12:56)
[2017-06-28] MEDS: Cholecalciferol (D-3) 1,000 UNIT TABLET PO SCH (08:14)
[2017-06-28] MEDS: risperiDONE 0.25 MG TABLET PO SCH ×2 (08:14→19:56)
[2017-06-28] MEDS: Multivit/Ca/Min/Fe/FA 1 TAB TABLET PO SCH (08:14)
[2017-06-28] MEDS: predniSONE 20 MG TABLET PO SCH ×2 (08:14→17:42)
[2017-06-28] MEDS: *HR* Rivaroxaban 10 MG TABLET PO SCH (08:14)
[2017-06-28] MEDS: Ammonium Lactate 30 APPL/225 GM BOTTLE TP SCH ×2 (08:15→20:05)
[2017-06-28] MEDS: Fluticasone Propionate Nasal 50 MCG/SPRAY BOTTLE NS SCH (08:15)
[2017-06-28] MEDS: NALTREXONE HCL 50 MG TABLET PO SCH (09:03)
--- NOTE | 2017-06-28 12:14 | Internal Med Progress Note ---
Date of Encounter: 06/28/17 Time of Encounter: 11:55 - Assessment and plan (1) Stroke Current Visit: No Status: Acute Assessment and plan: Seen by neurology. He continues to be on Plavix and xarelto. He is apparently also on aspirin. We will need to discuss with neurology whether they want him on all 3 agents. He is on a statin. Echo was done with no PFO. Continue to work with PT. Plan is to go back to [place] but cannot be done until Friday at their earliest given the holiday weekend.. Qualifiers: CVA mechanism: occlusion Precerebral and cerebral artery: vertebral artery Laterality of affected vessel: right Qualified Code(s): I63.211 - Cerebral infarction due to unspecified occlusion or stenosis of right vertebral artery (2) Hypoglycemia Current Visit: Yes Status: Acute Assessment and plan: Not exactly sure why this is happening. Some of his workup came back in terms of C-peptide and that is not elevated. His glucose has been holding up okay despite stopping the dextrose drip. Will cut back on the Accu-Cheks to every 4 from every 2 hours. the patient has been educated on hypoglycemia symptoms. He is also on prednisone which should boost up his glucose. (3) Nasal polyps Current Visit: Yes Status: Acute Assessment and plan: Seen by ENT. Started on Flonase and is on a prednisone taper. (4) Hypertension Current Visit: No Status: Chronic Assessment and plan: Blood pressure seems to be stable. Continue with metoprolol and Norvasc Qualifiers: Hypertension type: essential hypertension Qualified Code(s): I10 - Essential (primary) hypertension (5) Depression Current Visit: No Status: Chronic Assessment and plan: Continue with home antidepressants Qualifiers: Depression Type: major depressive disorder Major depression recurrence: recurrent Active/Remission status: currently active Major depression episode severity: severe Psychotic features: without psychotic features Qualified Code(s): F33.2 - Major depressive disorder, recurrent severe without psychotic features (6) Seizures Current Visit: No Status: Ruled-out Assessment and plan: No signs of seizures in the hospital. There is a reported seizure at home. I am not exactly sure if it was real. He did have low glucose here in the hospital and on arrival. I am not sure this was induced by the low sugars. Neurology is following. (7) Alcohol abuse Current Visit: No Status: Chronic Assessment and plan: Counseled. No signs of withdrawal. (8) DVT prophylaxis Current Visit: No Status: Acute Assessment and plan: He is on Zaroxolyn not exactly sure why he is on that. - Subjective Interval history: Patient was seen and examined. No acute events. His glucose has been holding up okay despite stopping the dextrose drip. He was admitted with a new CVA. - Constitutional Vitals: Temp Pulse Resp BP Pulse Ox 98.0 F 65 16 117/75 97 06/28/17 10:40 06/28/17 10:40 06/28/17 10:40 06/28/17 10:40 06/28/17 10:40 General appearance: Present: A&O X 3, pleasant, no acute distress, answers questions appropriately Exam: GEN: NAD CVS: RRR. S1, S2, No m/r/g RESP: CTAB ABD: Soft, NT, ND, +BS EXT: No edema. 2+ DP. No rashes NEURO: Nonfocal Internal Medicine: Result - Labs CBC & Chem 7: 06/28/17 05:47 06/28/17 05:47 Labs: Short CBC 06/28/17 Range/Units 05:47 WBC 11.0 D (4.3-11.1) K/mcL Hgb 12.5 L (12.9-16.9) g/dL Hct 38.5 (37.5-50.1) % Plt Count 401 H (140-400) K/mcL BMP 06/28/17 05:47 Sodium 138 Potassium 3.7 Chloride 106 Carbon Dioxide 26 BUN 9 Creatinine 0.79 Glucose 88 Calcium 9.5 - ABG Interpretation ABG results: PT/INR, D-dimer PT 14.9 Seconds (9.4-12.1) H 06/25/17 00:22 - VTE Documentation of Mechanical Device: Graduated compression elastic hosiery Consult Discharge Plan - Plan [facility]errals: [facility] [Primary Care Provider] -
[2017-06-28] MEDS: Melatonin 3 MG TABLET PO SCH (19:57)
[2017-06-28] MEDS: Latanoprost 2.5 ML BOTTLE BOTH EYES SCH (20:01)
[2017-06-29 03:40] LABS: Basophils % 0.2 %; Hematocrit 40.2 % (37.5-50.1); Immature Granulocytes % 0.5 % (0-4); Lymphocytes # 1.3 K/mcL (0.6-4.6); Lymphocytes % 13.3 %; Mean Corpuscular HGB Conc 32.3 g/dL (31.6-35.5); Mean Corpuscular Hemoglobin 30.1 pg (28.0-33.3); Mean Corpuscular Volume 93.1 fL (83.0-100.0); Mean Platelet Volume 9.3 fL (9.4-12.4); Monocytes # 0.5 K/mcL (0.0-1.3); Neutrophils # 8.2 K/mcL (1.6-8.9); Platelet Count 440 K/mcL (140-400); Red Blood Count 4.32 M/mcL (4.19-5.50); Red Cell Distribution Width 14.6 % (11.5-14.5)
[2017-06-29 04:01] LABS: BUN/Creatinine Ratio 14 (6-26); Blood Urea Nitrogen 11 mg/dL (6-20); Calcium 9.7 mg/dL (8.6-10.3); Carbon Dioxide 29 mEq/L (23-29); Chloride 103 mEq/L (98-107); Glucose 112 mg/dL (70-105); Osmolality,Calculated 284 (280-300); Potassium 4.3 mEq/L (3.5-5.1); Sodium 137 mEq/L (136-145); eGFR For African Americans > 60 (> 60); eGFR For Non-African Americans > 60 (> 60)
[2017-06-29] MEDS: Fluticasone Propionate Nasal 50 MCG/SPRAY BOTTLE NS SCH (09:45)
[2017-06-29] MEDS: Ammonium Lactate 30 APPL/225 GM BOTTLE TP SCH ×2 (09:45→20:38)
[2017-06-29] MEDS: Cholecalciferol (D-3) 1,000 UNIT TABLET PO SCH (09:47)
[2017-06-29] MEDS: Multivit/Ca/Min/Fe/FA 1 TAB TABLET PO SCH (09:47)
[2017-06-29] MEDS: *HR* Rivaroxaban 10 MG TABLET PO SCH (09:47)
[2017-06-29] MEDS: risperiDONE 0.25 MG TABLET PO SCH ×2 (09:47→20:41)
[2017-06-29] MEDS: predniSONE 10 MG TABLET PO SCH ×2 (09:48→16:38)
[2017-06-29] MEDS: NALTREXONE HCL 50 MG TABLET PO SCH (09:58)
--- NOTE | 2017-06-29 10:07 | Internal Med Progress Note ---
Date of Encounter: 06/29/17 Time of Encounter: 08:40 - Assessment and plan (1) Stroke Current Visit: No Status: Acute Assessment and plan: Seen by neurology. He continues to be on Plavix and xarelto. He is apparently also on aspirin. We will need to discuss with neurology whether they want him on all 3 agents. He is on a statin. Echo was done with no PFO. Continue to work with PT. Plan is to go back to [place] but cannot be done until Friday at their earliest given the holiday weekend.. Qualifiers: CVA mechanism: occlusion Precerebral and cerebral artery: vertebral artery Laterality of affected vessel: right Qualified Code(s): I63.211 - Cerebral infarction due to unspecified occlusion or stenosis of right vertebral artery (2) Hypoglycemia Current Visit: Yes Status: Acute Assessment and plan: Remains off the dextrose drip. His glucoses dipping down this morning. Chemotherapy given a diet this morning. He has avoided the drip for the last couple days and hopefully we are able to do that for the next couple days before his discharge. Not exactly sure why this is happening. Some of his workup came back in terms of C-peptide and that is not elevated. Continue with every 4 hours Accu-Cheks. the patient has been educated on hypoglycemia symptoms. He is also on prednisone which should boost up his glucose. (3) Nasal polyps Current Visit: Yes Status: Acute Assessment and plan: Seen by ENT. Started on Flonase and is on a prednisone taper. (4) Hypertension Current Visit: No Status: Chronic Qualifiers: Hypertension type: essential hypertension Qualified Code(s): I10 - Essential (primary) hypertension (5) Depression Current Visit: No Status: Chronic Assessment and plan: Continue with home antidepressants Qualifiers: Depression Type: major depressive disorder Major depression recurrence: recurrent Active/Remission status: currently active Major depression episode severity: severe Psychotic features: without psychotic features Qualified Code(s): F33.2 - Major depressive disorder, recurrent severe without psychotic features (6) Seizures Current Visit: No Status: Ruled-out Assessment and plan: No signs of seizures in the hospital. There is a reported seizure at home. I am not exactly sure if it was real. He did have low glucose here in the hospital and on arrival. I am not sure this was induced by the low sugars. Neurology is following. (7) Alcohol abuse Current Visit: No Status: Chronic Assessment and plan: Counseled. No signs of withdrawal. (8) DVT prophylaxis Current Visit: No Status: Acute Assessment and plan: He is on Zaroxolyn not exactly sure why he is on that. - Subjective Interval history: Patient was seen and examined. No acute events. His glucose has been in the low 100s this morning. He continues to be off the dextrose drip. Otherwise no issues. He was admitted with a new CVA. - Constitutional Vitals: Temp Pulse Resp BP Pulse Ox 97.7 F 57 16 120/74 96 06/29/17 07:13 06/29/17 07:13 06/29/17 07:13 06/29/17 07:13 06/29/17 07:13 General appearance: Present: A&O X 3, pleasant, no acute distress, answers questions appropriately Exam: GEN: NAD CVS: RRR. S1, S2, No m/r/g RESP: CTAB ABD: Soft, NT, ND, +BS EXT: No edema. 2+ DP. No rashes NEURO: Nonfocal Internal Medicine: Result - Labs CBC & Chem 7: 06/29/17 03:18 06/29/17 03:18 Labs: Short CBC 06/29/17 Range/Units 03:18 WBC 10.1 (4.3-11.1) K/mcL Hgb 13.0 (12.9-16.9) g/dL Hct 40.2 (37.5-50.1) % Plt Count 440 H (140-400) K/mcL Neutrophils # 8.2 (1.6-8.9) K/mcL BMP 06/29/17 03:18 Sodium 137 Potassium 4.3 Chloride 103 Carbon Dioxide 29 BUN 11 Creatinine 0.78 Glucose 112 H Calcium 9.7 - ABG Interpretation ABG results: PT/INR, D-dimer PT 14.9 Seconds (9.4-12.1) H 06/25/17 00:22 - VTE Documentation of Mechanical Device: Graduated compression elastic hosiery Consult Discharge Plan - Plan [facility]errals: [facility] [Primary Care Provider] -
[2017-06-29 17:50] LABS: Insulin, Total 34 uIU/mL (3-19)
[2017-06-29] MEDS: Latanoprost 2.5 ML BOTTLE BOTH EYES SCH (20:40)
[2017-06-29] MEDS: Melatonin 3 MG TABLET PO SCH (20:41)
[2017-06-30 03:57] LABS: Hematocrit 38.6 % (37.5-50.1); Hemoglobin 12.8 g/dL (12.9-16.9); Mean Corpuscular HGB Conc 33.2 g/dL (31.6-35.5); Mean Corpuscular Hemoglobin 31.1 pg (28.0-33.3); Mean Corpuscular Volume 93.7 fL (83.0-100.0); Mean Platelet Volume 9.2 fL (9.4-12.4); Platelet Count 418 K/mcL (140-400); Red Blood Count 4.12 M/mcL (4.19-5.50); Red Cell Distribution Width 14.6 % (11.5-14.5)
[2017-06-30 04:22] LABS: BUN/Creatinine Ratio 18 (6-26); Blood Urea Nitrogen 14 mg/dL (6-20); Calcium 9.3 mg/dL (8.6-10.3); Carbon Dioxide 28 mEq/L (23-29); Chloride 101 mEq/L (98-107); Glucose 128 mg/dL (70-105); Osmolality,Calculated 284 (280-300); Potassium 3.5 mEq/L (3.5-5.1); Sodium 136 mEq/L (136-145); eGFR For African Americans > 60 (> 60); eGFR For Non-African Americans > 60 (> 60)
--- NOTE | 2017-06-30 09:31 | Internal Med Progress Note ---
Date of Encounter: 06/30/17 Time of Encounter: 08:00 - Assessment and plan (1) Stroke Current Visit: No Status: Acute Assessment and plan: Seen by neurology. He continues to be on Plavix and xarelto. He is apparently also on aspirin. We will need to discuss with neurology whether they want him on all 3 agents. He is on a statin. Echo was done with no PFO. Continue to work with PT. Plan is to go back to [place] but cannot be done until Friday at their earliest given the holiday weekend.. Qualifiers: CVA mechanism: occlusion Precerebral and cerebral artery: vertebral artery Laterality of affected vessel: right Qualified Code(s): I63.211 - Cerebral infarction due to unspecified occlusion or stenosis of right vertebral artery (2) Hypoglycemia Current Visit: Yes Status: Acute Assessment and plan: Remains off the dextrose drip. Continues to be off the drip for 3 days now Not exactly sure why this is happening. Some of his workup came back in terms of C-peptide and that is not elevated. Other workup still pending and may have to be followed up on as an outpatient. Continue with every 4 hours Accu-Cheks. the patient has been educated on hypoglycemia symptoms. He is also on prednisone which should boost up his glucose. (3) Nasal polyps Current Visit: Yes Status: Acute Assessment and plan: Seen by ENT. Started on Flonase and is on a prednisone taper. (4) Hypertension Current Visit: No Status: Chronic Assessment and plan: Blood pressure seems to be stable. Continue with metoprolol and Norvasc Qualifiers: Hypertension type: essential hypertension Qualified Code(s): I10 - Essential (primary) hypertension (5) Depression Current Visit: No Status: Chronic Assessment and plan: Continue with home antidepressants Qualifiers: Depression Type: major depressive disorder Major depression recurrence: recurrent Active/Remission status: currently active Major depression episode severity: severe Psychotic features: without psychotic features Qualified Code(s): F33.2 - Major depressive disorder, recurrent severe without psychotic features (6) Alcohol abuse Current Visit: No Status: Chronic Assessment and plan: Counseled. No signs of withdrawal. (7) DVT prophylaxis Current Visit: No Status: Acute Assessment and plan: He is on Zaroxolyn not exactly sure why he is on that. - Subjective Interval history: Patient was seen and examined. No acute events. We are awaiting placement. His glucose has been okay. Continues to be off the dextrose drip. He was admitted with a new CVA. - Constitutional Vitals: Temp Pulse Resp BP Pulse Ox 97.7 F 58 18 137/87 97 06/30/17 07:29 06/30/17 07:29 06/30/17 07:29 06/30/17 07:29 06/30/17 07:29 General appearance: Present: A&O X 3, pleasant, no acute distress, answers questions appropriately Exam: GEN: NAD CVS: RRR. S1, S2, No m/r/g RESP: CTAB ABD: Soft, NT, ND, +BS EXT: No edema. 2+ DP. No rashes NEURO: Nonfocal Internal Medicine: Result - Labs CBC & Chem 7: 06/30/17 03:48 06/30/17 03:48 Labs: Short CBC 06/30/17 Range/Units 03:48 WBC 9.2 (4.3-11.1) K/mcL Hgb 12.8 L (12.9-16.9) g/dL Hct 38.6 (37.5-50.1) % Plt Count 418 H (140-400) K/mcL BMP 06/30/17 03:48 Sodium 136 Potassium 3.5 Chloride 101 Carbon Dioxide 28 BUN 14 Creatinine 0.78 Glucose 128 H Calcium 9.3 - ABG Interpretation ABG results: PT/INR, D-dimer PT 14.9 Seconds (9.4-12.1) H 06/25/17 00:22 - VTE Documentation of Mechanical Device: Intermittent pneumatic compression device Consult Discharge Plan - Plan [facility]errals: [facility] [Primary Care Provider] -
[2017-06-30] MEDS: Multivit/Ca/Min/Fe/FA 1 TAB TABLET PO SCH (09:43)
[2017-06-30] MEDS: predniSONE 10 MG TABLET PO SCH ×2 (09:43→17:04)
[2017-06-30] MEDS: *HR* Rivaroxaban 10 MG TABLET PO SCH (09:43)
[2017-06-30] MEDS: risperiDONE 0.25 MG TABLET PO SCH ×2 (09:43→20:14)
[2017-06-30] MEDS: Ammonium Lactate 30 APPL/225 GM BOTTLE TP SCH ×2 (09:44→20:16)
[2017-06-30] MEDS: Fluticasone Propionate Nasal 50 MCG/SPRAY BOTTLE NS SCH (09:44)
[2017-06-30] MEDS: Cholecalciferol (D-3) 1,000 UNIT TABLET PO SCH (09:44)
[2017-06-30] MEDS: NALTREXONE HCL 50 MG TABLET PO SCH (10:16)
[2017-06-30] MEDS: Melatonin 3 MG TABLET PO SCH (20:14)
[2017-06-30] MEDS: Latanoprost 2.5 ML BOTTLE BOTH EYES SCH (20:15)
[2017-07-01 07:10] VITALS: BP 154/93
[2017-07-01] MEDS: Cholecalciferol (D-3) 1,000 UNIT TABLET PO SCH (08:35)
[2017-07-01] MEDS: risperiDONE 0.25 MG TABLET PO SCH (08:35)
[2017-07-01] MEDS: predniSONE 10 MG TABLET PO SCH (08:35)
[2017-07-01] MEDS: Multivit/Ca/Min/Fe/FA 1 TAB TABLET PO SCH (08:35)
[2017-07-01] MEDS: *HR* Rivaroxaban 10 MG TABLET PO SCH (08:36)
[2017-07-01 08:52] LABS: Insulin Antibody <0.4 U/mL (0.0-0.4)
[2017-07-01] MEDS ORDERED: predniSONE 5 MG TABLET PO ONE (09:23)
--- NOTE | 2017-07-01 09:28 | Discharge Summary ---
Date of Encounter: 07/01/17 Time of Encounter: 09:30 - Discharge Diagnosis (1) Stroke Priority: Primary Status: Acute Qualifiers: CVA mechanism: occlusion Precerebral and cerebral artery: vertebral artery Laterality of affected vessel: right Qualified Code(s): I63.211 - Cerebral infarction due to unspecified occlusion or stenosis of right vertebral artery (2) Hypoglycemia Priority: Primary Status: Acute (3) Nasal polyps Priority: Primary Status: Acute (4) Hypertension Priority: Secondary Status: Chronic Qualifiers: Hypertension type: essential hypertension Qualified Code(s): I10 - Essential (primary) hypertension (5) Depression Priority: Secondary Status: Chronic Qualifiers: Depression Type: major depressive disorder Major depression recurrence: recurrent Active/Remission status: currently active Major depression episode severity: severe Psychotic features: without psychotic features Qualified Code(s): F33.2 - Major depressive disorder, recurrent severe without psychotic features (6) Alcohol abuse Priority: Secondary Status: Chronic - Discharge Medications Prescriptions: Atorvastatin [Lipitor] 40 mg PO HS #30 tablet Fluticasone Propionate Nasal [Flonase] 100 mcg NS DAILY #1 bottle predniSONE [PredniSONE] 10 mg PO DAILY #3 tablet Home Medications: Brimonidine Tartrate [Alphagan P] 1 drop LEFT EYE BID 05/06/15 [History] Latanoprost [Xalatan] 1 drop BOTH EYES HS 05/06/15 [History] Docusate Sodium [Colace] 100 mg PO BID PRN 05/29/15 [History] Calcium Carbonate/Vitamin D3 [Calcium 600 + Vit D Tablet] 1 tab PO BID 11/02/16 [History] Ferrous Sulfate [Iron] 325 mg PO BID 11/02/16 [History] RisperiDONE [Risperdal] 0.5 mg PO BID 11/02/16 [History] Clopidogrel [Plavix] 75 mg PO DAILY #30 tablet 11/04/16 [Rx] Metoprolol [Lopressor] 25 mg PO BID #30 tablet 11/04/16 [Rx] Carboxymethylcellulose Sodium [Refresh Liquigel] 1 drop BOTH EYES QID PRN [History] Ipratropium/Albuterol Sulfate [Combivent Respimat Inhal [place]] 1 puff IH QID PRN 01/17/17 [History] Melatonin [Melatin] 12 mg PO HS 01/17/17 [History] Omeprazole [PriLOSEC] 20 mg PO DAILY 01/17/17 [History] Rivaroxaban [Xarelto] 20 mg PO DAILY 01/17/17 [History] Thiamine (B-1) [Vitamin B-1] 100 mg PO DAILY #30 tab 01/19/17 [Rx] Acetaminophen [Non-Aspirin] 325 mg PO BID PRN 06/24/17 [History] Amlodipine Besylate 10 mg PO DAILY 06/24/17 [History] Ammonium Lactate [Lac-Hydrin Five] 1 appl TP BID 06/24/17 [History] Multivit-Min/FA/Lycopen/Lutein [A Thru Z Select Multivit Tab] 1 tab PO DAILY [History] Naltrexone HCl [Revia] 50 mg PO DAILY 06/24/17 [History] Polyethylene Glycol 3350 [MiraLAX] 17 gm PO DAILY 06/24/17 [History] Prazosin [Minipress] 1 mg PO HS 06/24/17 [History] Sertraline [Zoloft] 150 mg PO DAILY 06/24/17 [History] hydrOXYzine HCl [Hydroxyzine HCl] 25 mg PO Q6H PRN 06/24/17 [History] Atorvastatin [Lipitor] 40 mg PO HS #30 tablet 07/01/17 [Rx] Fluticasone Propionate Nasal [Flonase] 100 mcg NS DAILY #1 bottle 07/01/17 [Rx] predniSONE [PredniSONE] 10 mg PO DAILY #3 tablet 07/01/17 [Rx] Allergies/Adverse Reactions: 3 Allergy/AdvReac Type Severity Reaction Status Date / Time No Known Allergies Allergy Verified 06/24/17 11:27 Date of admission: 06/24/17 14:16 [facility] physician[facility] Consults: 06/25/17 08:01 Consult to ENT [CONS] Routine Consulting Provider: [facility] Reason for Consult: Head CT with extensive sinusitis and possible non- invasive fungus Call Completed: Yes 06/25/17 14:33 Consult to Neurology [CONS] Routine Consulting Provider: [facility] Reason for Consult: positive MRI for infact Call Completed: Yes - Patient Status Disposition: Transfer SNF Condition: Fair Overall status at discharge: patient is progressing back to baseline - Discharge Instructions Instructions: Ischemic Stroke (DC), Self Care Measures After a Stroke (DC) Follow Up [facility]: [facility] [Primary Care Provider] - Leandra Negron MD [Non-Partnered Physician] - (2 weeks) - Diet and Activity Activity: resume usual activities as tolerated Diet: regular diet Hospital course: Mr. Bernal is a 51 year old male who has a background history of for hypertension , seizure disorder, COPD, hospitalization at the [facility] for [facility] dependence. Patient had a strokelike symptoms and was admitted to the hospitalist service. The patient had complaints of numbness/change in the sensation. At the time he was in the ED he was symptoms free. At the time of examination patient denies any symptoms. A CT scan of the brain did not show any acute stroke/bleed/ changes.. The patient was admitted to the hospitalist service for stroke workup. He underwent an MRI of brain which showed acute/early subacute lacunar infarction in the right superior thalamus with no associated hemorrhage. 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 He feels these findings we consulted with both neurology and ENT. ENT came by and recommended a prednisone taper as well as Flonase with follow-up with him. Neurology recommended the patient be on Plavix as well as xarelto which she was on previously. The reason for him being on 02 is still unclear. He does not have atrial fibrillation and no history of clotting disorders or episodes. His atorvastatin was increased to 40 mg from 10 mg. He underwent rest of stroke workup including echocardiogram with bubble study and carotid study which were unremarkable. While hospitalized, the patient was noted to have hypoglycemic episode as low as the 30s. Apparently he did have those at home. I had no clear reasons for that. The patient required dextrose drip at times while he was hospitalized. For the last 4 days later was hospitalized he did not need that. I did sent for some hypoglycemic workup which is still pending including proinsulin, total insulin, C-peptide, insulin antibody which needs to be followed up on by his primary care physician. He may need a referral to endocrinology. The patient was stable for discharge and for 4 days he stayed in the hospital over the holidays as we [facility] not [facility]. He was discharged on 07/01/2017 in a stable condition to the [facility]. - Time Spent with Patient Total time spent providing and/or coordinating discharge services: Greater than 30 minutes - Constitutional Vitals: Temp Pulse Resp BP Pulse Ox 97.8 F 59 18 154/93 96 07/01/17 07:09 07/01/17 07:09 07/01/17 07:09 07/01/17 07:09 07/01/17 07:09 General appearance: Present: A&O X 3, pleasant, no acute distress, answers questions appropriately - VTE Documentation of Mechanical Device: Graduated compression elastic hosiery
[2017-07-01] MEDS: Fluticasone Propionate Nasal 50 MCG/SPRAY BOTTLE NS SCH (09:34)
[2017-07-01] MEDS: Ammonium Lactate 30 APPL/225 GM BOTTLE TP SCH (09:34)
[2017-07-01] MEDS: NALTREXONE HCL 50 MG TABLET PO SCH (09:38)
--- NOTE | 2017-07-01 09:51 | Physician Discharge Referral ---
ExtendedCare Referral Info Institutional Level of Care: Skilled - Diagnosis (1) Stroke Priority: Primary Status: Acute (2) Hypoglycemia Priority: Primary Status: Acute (3) Nasal polyps Priority: Primary Status: Acute (4) Hypertension Priority: Secondary Status: Chronic (5) Depression Priority: Secondary Status: Chronic (6) Alcohol abuse Priority: Primary Status: Chronic - Transfer Medications Prescriptions: Atorvastatin [Lipitor] 40 mg PO HS #30 tablet Fluticasone Propionate Nasal [Flonase] 100 mcg NS DAILY #1 bottle predniSONE [PredniSONE] 10 mg PO DAILY #3 tablet Home Medications: Brimonidine Tartrate [Alphagan P] 1 drop LEFT EYE BID 05/06/15 [History] Latanoprost [Xalatan] 1 drop BOTH EYES HS 05/06/15 [History] Docusate Sodium [Colace] 100 mg PO BID PRN 05/29/15 [History] Calcium Carbonate/Vitamin D3 [Calcium 600 + Vit D Tablet] 1 tab PO BID 11/02/16 [History] Ferrous Sulfate [Iron] 325 mg PO BID 11/02/16 [History] RisperiDONE [Risperdal] 0.5 mg PO BID 11/02/16 [History] Clopidogrel [Plavix] 75 mg PO DAILY #30 tablet 11/04/16 [Rx] Metoprolol [Lopressor] 25 mg PO BID #30 tablet 11/04/16 [Rx] Carboxymethylcellulose Sodium [Refresh Liquigel] 1 drop BOTH EYES QID PRN [History] Ipratropium/Albuterol Sulfate [Combivent Respimat Inhal [place]] 1 puff IH QID PRN 01/17/17 [History] Melatonin [Melatin] 12 mg PO HS 01/17/17 [History] Omeprazole [PriLOSEC] 20 mg PO DAILY 01/17/17 [History] Rivaroxaban [Xarelto] 20 mg PO DAILY 01/17/17 [History] Thiamine (B-1) [Vitamin B-1] 100 mg PO DAILY #30 tab 01/19/17 [Rx] Acetaminophen [Non-Aspirin] 325 mg PO BID PRN 06/24/17 [History] Amlodipine Besylate 10 mg PO DAILY 06/24/17 [History] Ammonium Lactate [Lac-Hydrin Five] 1 appl TP BID 06/24/17 [History] Multivit-Min/FA/Lycopen/Lutein [A Thru Z Select Multivit Tab] 1 tab PO DAILY [History] Naltrexone HCl [Revia] 50 mg PO DAILY 06/24/17 [History] Polyethylene Glycol 3350 [MiraLAX] 17 gm PO DAILY 06/24/17 [History] Prazosin [Minipress] 1 mg PO HS 06/24/17 [History] Sertraline [Zoloft] 150 mg PO DAILY 06/24/17 [History] hydrOXYzine HCl [Hydroxyzine HCl] 25 mg PO Q6H PRN 06/24/17 [History] Atorvastatin [Lipitor] 40 mg PO HS #30 tablet 07/01/17 [Rx] Fluticasone Propionate Nasal [Flonase] 100 mcg NS DAILY #1 bottle 07/01/17 [Rx] predniSONE [PredniSONE] 10 mg PO DAILY #3 tablet 07/01/17 [Rx] Allergies/Adverse Reactions: 3 Allergy/AdvReac Type Severity Reaction Status Date / Time No Known Allergies Allergy Verified 06/24/17 11:27 - Respiratory Orders Smoking Cessation: Smoking cessation has been advised. For more information, call the [place] Tobacco Quit Line at 5-607-NKMD-NOW. - Rehabiliation Orders Rehab Potential: Fair Rehab Orders: Evaluation for Physical Therapy, Evaluation for Occupational Therapy - Diet Orders Regular CERTIFICATION: I certify that the transfer of the above named patient to an Extended Care Facility is necessary for the continuing treatment of the diagnosis listed. The above information is true and accurate reflection of patient's current condition. Confidential - Redisclosure prohibited without a patient's written consent.
[2017-07-02] MEDS ORDERED: predniSONE 10 MG TABLET PO SCH (09:00)
== END 2017-07-01 10:23 | DRG 65 ==
LOC: 3BNU 11:10 → EMEROO 11:10 → 3BNU 15:58
PROVIDERS: ADMIT Internal Medicine; ATTEND Registered Nurse